=== PATIENT | female | born 1940 | race Caucasian/White ===

== ENCOUNTER 2019-07-25 02:04 | Inpatient (IN) | payer MEDICARE, BC ==
[~2019-07-25] VITALS: Ht 152.4 cm; Wt 83.1 kg
[2019-07-25] MEDS ORDERED: FURO-151 PO (02:27)
[2019-07-25] MEDS ORDERED: ASPI-1152 PO (02:27)
[2019-07-25] MEDS ORDERED: ATOR40TA PO (02:27)
[2019-07-25] MEDS ORDERED: LISI-603 PO (02:27)
[2019-07-25] MEDS ORDERED: CARV6.252 PO (02:27)
[2019-07-25] MEDS ORDERED: DIGO125T PO (02:27)
[2019-07-25] MEDS ORDERED: SPIR25TA PO (02:27)
[2019-07-25] MEDS ORDERED: LEVO50TA8 PO (02:27)
[2019-07-25] MEDS ORDERED: ENALAPRILAT DIHYDRATE 1.25 MG/1 ML VIAL IV ONE ×2 (02:30→02:35)
[2019-07-25] MEDS ORDERED: NITROGLYCERIN OINT 1 GM PACKET TP ONE ×2 (02:30→02:45)
[2019-07-25] MEDS ORDERED: FUROSEMIDE 20 MG/2 ML VIAL IVP ONE (02:30)
[2019-07-25] MEDS ORDERED: DAPA10TA PO (02:43)
[2019-07-25] MEDS ORDERED: FUROSEMIDE 40 MG/4 ML VIAL ONE ×2 (02:45→02:58)
--- NOTE | 2019-07-25 02:50 | NUR ---
Per EDMD DS pt placed on BIPAP via full face mask on settings of IPAP 15, EPAP 5, set resp. rate 20 and FIO2-80%. Pt appears to be tolerating settings well. Pt to be monitored throughout the duration of the shift. V-60 alarm parameters have been checked and remain audible.
[2019-07-25 02:55] LABS: BASOPHILS # (AUTO) 0.2 K/uL (0.0-8.0); BASOPHILS % (AUTO) 1.4 % (0.0-2.0); EOSINOPHILS # (AUTO) 1.3 K/uL (0.0-0.7); EOSINOPHILS % (AUTO) 8.6 % (0.0-7.0); HEMATOCRIT 41.6 % (31.2-41.9); HEMOGLOBIN 13.4 g/dL (10.9-14.3); LYMPHOCYTES # (AUTO) 1.5 K/uL (20.0-40.0); LYMPHOCYTES % (AUTO) 9.5 % (20.5-51.5); MEAN CORPUSCULAR HEMOGLOBIN 28.5 uug (24.7-32.8); MEAN CORPUSCULAR HGB CONC 32 g/dL (32.3-35.6); MEAN CORPUSCULAR VOLUME 88.7 fL (75.5-95.3); MONOCYTES # (AUTO) 0.6 K/uL (2.0-10.0); NEUTROPHILS # (AUTO) 11.8 K/uL (1.8-8.9); NEUTROPHILS % (AUTO) 76.5 % (38.5-71.5); PLATELET COUNT (AUTO) 230 K/uL (179-408); RED BLOOD CELL COUNT(AUTO) 4.69 MIL/uL (3.63-4.92); WHITE BLOOD COUNT (AUTO) 15.4 K/uL (3.8-11.8)
[2019-07-25] MEDS ORDERED: ALBUTEROL SULFATE 2.5 MG/3 ML NEBU NEB ONE (03:00)
[2019-07-25] MEDS ORDERED: FUROSEMIDE 40 MG/4 ML VIAL IV ONE (03:00)
[2019-07-25] MEDS ORDERED: ALBUTEROL SULFATE 2.5 MG/3 ML NEBU ONE (03:03)
[2019-07-25 03:09] LABS: CARBON DIOXIDE 26 mmol/L (21-32); CHLORIDE 106 mmol/L (98-107); CREATININE 1.6 mg/dL (0.6-1.3); GLUCOSE 294 mg/dL (74-106); POTASSIUM 4.9 mmol/L (3.5-5.1); UREA NITROGEN, BLOOD 43 mg/dL (7-18)
[2019-07-25] MEDS ORDERED: levoFLOXacin 750 MG/D5W 150 ML PIGGYBACK IV ONE (03:15)
[2019-07-25] MEDS ORDERED: levoFLOXacin 750MG/D5W 150 ML IV ONE (03:16)
[2019-07-25 03:22] LABS: ALANINE AMINOTRANSFERASE 27 U/L (14-59); ALKALINE PHOSPHATASE 83 U/L (50-136); ASPARTATE AMINOTRANSFERASE 17 U/L (15-37); BILIRUBIN,DIRECT < 0.1 mg/dL (0.0-0.2); BILIRUBIN,TOTAL 0.3 mg/dL (0.2-1.0); TOTAL PROTEIN, SERUM 7.6 g/dL (6.4-8.2)
--- NOTE | 2019-07-25 03:37 | NUR ---
Pt states she is feeling better & more comfortable. Vitals are stable. BP 130/55. HR 77 NSR. Respirations 21. O2 Saturation 98%. Pt currently on BIPAP with settings as followed: IPAP 15. EPAP 5. Rate 20. O2 80%. At this time, pt has diuresed 300cc of urine output. Will continue to monitor. Pending inpatient status. Waiting call back from [email or web address] panel.
--- NOTE | 2019-07-25 03:55 | NUR ---
Pt. admitted to [facility], under care of Dr. August. Diagnosis: Heart Failure/Congestive Heart Failure/Pulmonary Edema. Belongs List completed
--- NOTE | 2019-07-25 03:55 | NUR ---
Dr. Holman titrated FIO2 down to 60%. Pt tolerating well.
--- NOTE | 2019-07-25 04:30 | NUR ---
Admitted a 78 years old female with diagnosis of SOB. Patient AAOx4. Denies any pain at this time. IV site on left hand intact and patent. Garcia catheter intact and draining via gravity. Routine admission care done. Plan of care initiated. Safety measure initiated and call viera within reached.
[2019-07-25] MEDS ORDERED: ACETAMINOPHEN 325 MG TABLET PO PRN (04:45)
[2019-07-25] MEDS ORDERED: HYDROCODONE/APAP 5-325MG TABLET PO PRN (04:45)
[2019-07-25] MEDS ORDERED: DEXTROSE 50% 50 ML DISP.SYRIN IV PRN (04:45)
[2019-07-25] MEDS ORDERED: INSULIN REGULAR, HUMAN 300 UNITS/3 ML VIAL SQ PRN (04:45)
[2019-07-25] MEDS ORDERED: ONDANSETRON 4 MG/2 ML VIAL IV PRN (04:45)
[2019-07-25] MEDS ORDERED: MAGNESIUM HYDROXIDE 30 ML LIQUID UDC PO PRN (04:45)
[2019-07-25] MEDS ORDERED: Z GUARD REMEDY PASTE 57 GM TUBE TOP PRN (04:45)
[2019-07-25 05:26] VITALS: BP 140/62
--- NOTE | 2019-07-25 05:28 | NUR ---
RT placed patient on BIPAP. O2 sat at 96%. NSR on tele at 70/min.
--- NOTE | 2019-07-25 06:29 | NUR ---
Critical value, troponin 0.648. Informed Dr. August. Awaiting for any new order. Patient will have another Troponin level at 1040.
[2019-07-25] MEDS: BLOOD SUGAR DIAGNOSTIC 1 EACH STRIP VI SCH ×4 (06:36→21:53)
[2019-07-25] MEDS ORDERED: LEVOTHYROXINE SODIUM 50 MCG TABLET PO SCH (07:00)
--- NOTE | 2019-07-25 07:25 | NUR ---
Received pt. in bed AAOX4. on bipap 20/15 Rate of 20 and fio2 of 60%. saturation of 96% At 0745 Patient transfer to room 318 for which he was taken off bipap saturation dropping to 87-88% patient encourage to take deep breaths and after about 10min. saturation up to 92% placed on 4 liters nasal canula and titrated up to 6 liter to maintain saturation above 92%, Patient noted with dry cough and getting short of breath with exacerbation.
[2019-07-25 08:00] VITALS: BP 156/68
[2019-07-25] MEDS: ASPIRIN EC 81 MG TABLET.DR PO SCH (08:38)
[2019-07-25] MEDS ORDERED: LISINOPRIL 20 MG TABLET PO SCH (09:00)
[2019-07-25] MEDS ORDERED: CARVEDILOL 6.25 MG TABLET PO SCH (09:00)
[2019-07-25] MEDS ORDERED: CARVEDILOL 12.5 MG TABLET PO SCH ×2 (09:00→17:00)
[2019-07-25] MEDS ORDERED: DIGOXIN 125 MCG TABLET PO SCH (09:00)
--- NOTE | 2019-07-25 11:17 | NUR ---
Cardiology services, Dr. Pepper in and informed of pt's most recent trending up troponin 1.204.
[2019-07-25] MEDS: INSULIN REGULAR, HUMAN 300 UNIT/3 ML VIAL SQ PRN ×2 (11:24→16:52)
[2019-07-25 11:30] VITALS: BP 145/54
[2019-07-25] MEDS ORDERED: CLOPIDOGREL 75 MG TABLET PO ONE (13:00)
[2019-07-25 13:15] LABS: CARBON DIOXIDE 28 mmol/L (21-32); CHLORIDE 104 mmol/L (98-107); CREATININE 1.7 mg/dL (0.6-1.3); GLUCOSE 177 mg/dL (74-106); POTASSIUM 5.1 mmol/L (3.5-5.1); UREA NITROGEN, BLOOD 45 mg/dL (7-18)
[2019-07-25 13:21] LABS: ALANINE AMINOTRANSFERASE 30 U/L (14-59); ALKALINE PHOSPHATASE 82 U/L (50-136); ASPARTATE AMINOTRANSFERASE 24 U/L (15-37); BILIRUBIN,TOTAL 0.5 mg/dL (0.2-1.0)
[2019-07-25] MEDS: ENOXAPARIN SODIUM 80 MG/0.8 ML DISP.SYRIN SQ SCH (13:43)
--- NOTE | 2019-07-25 14:23 | NUR ---
SCD's ordered and pump requested from central awaiting delivery.
--- NOTE | 2019-07-25 15:23 | NUR ---
SCD's delivery but patient refusing therapy at this time stating "I'll do it tonight at bedtime".
[2019-07-25 16:15] LABS: *BILIRUBIN,URIN NEGATIVE (NEGATIVE); *BLOOD, URINE 3+ (NEGATIVE); *CLARITY,URINE CLEAR (CLEAR); *COLOR,URINE YELLOW (YELLOW); *KETONES,URINE NEGATIVE (NEGATIVE); *UROBILINOGEN,URINE 0.2 E.U./dl (NORMAL); LEUKOCYTE ESTERASE ,URINE NEGATIVE (NEGATIVE); NITRITE, URINE NEGATIVE (NEGATIVE)
[2019-07-25 16:25] LABS: UGLUCOSE 3+ (NEGATIVE)
[2019-07-25 16:49] LABS: *CREATININE,URINE 38.4 mg/dL (30-125); *URINE TOTAL PROTEIN RANDOM 27.5 mg/dL (<150/24HR)
[2019-07-25 16:57] LABS: BACTERIA,URINE FEW /HPF (NONE SEEN); RBC,URINE 50-80 /HPF (0-3); SQUAMOUS EPITHELIAL CELL,UR FEW /HPF (NONE SEEN)
[2019-07-25 17:00] VITALS: BP 148/42
[2019-07-25] MEDS ORDERED: CARVEDILOL 25 MG TABLET PO SCH (17:00)
--- NOTE | 2019-07-25 19:35 | NUR ---
PATIENT ALERT ORIENTED, NO SOB NO CHEST PAIN. PATIENT ON TELE MONITOR SINUS RHYTHM. PATIENT REMAINS ON DROPLET PRECAUTIONS. PATIENT HAS NO COMPLAIN OF PAIN AT THIS TIME. CALL LIGHT WITHIN REACH.
[2019-07-25 20:07] VITALS: BP 140/64
[2019-07-25] MEDS ORDERED: ATORVASTATIN 40 MG TABLET PO SCH ×2 (21:00)
[2019-07-26] VITALS: BP 130/72
[2019-07-26 04:05] VITALS: BP 144/42
--- NOTE | 2019-07-26 04:49 | NUR ---
PATIENT HAS EPISODE OF V TACH 8 BEATS, CHECK BP 144/42, HR 74, OXYGEN SAT 94% AT 2LPM. PATIENT HAS NO SOB NO CHEST, ALERT ORIENTED, PATIENT SAID SHE WENT TO BATHROOM PROBABLY THE CAUSE OF VTACH EPISODES, NO FURTHER EPISODE NOTED. CONT TO MONITOR.
[2019-07-26] MEDS: BLOOD SUGAR DIAGNOSTIC 1 EACH STRIP VI SCH ×3 (06:28→17:08)
--- NOTE | 2019-07-26 06:36 | NUR ---
PATIENT LEFT ARM IV INFILTRATED, REINSERTED NEW ONE LEFT FOREARM TOLERATE WELL. PATIENT ALERT ORIENTED, DENIES PAIN AT THIS TIME, KEPT LEFT ARM ELEVATED WITH PILLOW, TELE MONITOR SINUS RYTHM, CONT TO MONITOR.
--- NOTE | 2019-07-26 07:00 | NUR ---
ATTEMPTED ABG x2. AFTER SECOND FAILED ATTEMPT, PT REFUSED ABG. RN AWARE.
--- NOTE | 2019-07-26 08:00 | NUR ---
Received pt in bed AOx4, on O2 @ 2L, no SOB or distress noted at this time. On telemetry, IV on left wrist 22g flushed and patent. Garcia catheter in place draining tea colored urine. Able to ambulate around room. Bed locked in lowest position with siderails 2x up. Call light and phone within reach. Will monitor
[2019-07-26] MEDS ORDERED: FUROSEMIDE 40 MG/4 ML VIAL IV SCH (09:00)
[2019-07-26] MEDS ORDERED: CARVEDILOL 25 MG TABLET PO SCH (09:00)
[2019-07-26] MEDS ORDERED: CLOPIDOGREL 75 MG TABLET PO SCH (09:00)
[2019-07-26] MEDS ORDERED: LEVOTHYROXINE SODIUM 50 MCG TABLET PO SCH ×2 (09:00)
[2019-07-26] MEDS: ASPIRIN EC 81 MG TABLET.DR PO SCH (09:33)
[2019-07-26] MEDS: ENOXAPARIN SODIUM 80 MG/0.8 ML DISP.SYRIN SQ SCH (09:38)
[2019-07-26] MEDS: INSULIN REGULAR, HUMAN 300 UNIT/3 ML VIAL SQ PRN ×2 (10:31→12:00)
[2019-07-26 11:30] VITALS: BP 145/44
[2019-07-26 16:00] VITALS: BP 163/51
[2019-07-26] MEDS ORDERED: CARV25TA2 PO (16:30)
[2019-07-26] MEDS ORDERED: LEVO500T2 PO (16:30)
[2019-07-26] MEDS ORDERED: CLOP75TA33 PO (16:30)
--- NOTE | 2019-07-26 18:12 | NUR ---
Pt left unit via wheelchair accompanied by Jeff LOPEZ. AOx4, on RA with no SOB or distress noted. Patient very eager to go home. DC forms and instructions signed and given to patient. Belongings list signed, all accounted for. Garcia catheter was removed, pt was able to void with no difficulty or burning. IV on left wrist and ID band removed. Pt verbalized understanding of DC educations.
== END 2019-07-26 18:00 | disposition home or self-care (01) | DRG 280 ==
LOC: ER 02:07 → TELE-TD3 04:10 → TELE3 17:40
PROVIDERS: ADMIT Nurse Practitioner Acute Care; ATTEND Internal Medicine
PROC: 5A09357 Assistance with Respiratory Ventilation, Less than 24 Consecutive Hours, Continuous Positive Airway Pressure (ICD-10-PCS; principal; 2019-07-25)
DX: I13.0 Hypertensive heart and chronic kidney disease with heart failure and stage 1 through stage 4 chronic kidney disease, or unspecified chronic kidney disease (principal); N17.0 Acute kidney failure with tubular necrosis; I21.A1 Myocardial infarction type 2; I50.43 Acute on chronic combined systolic (congestive) and diastolic (congestive) heart failure; J96.01 Acute respiratory failure with hypoxia; D68.69 Other thrombophilia; I16.9 Hypertensive crisis, unspecified; I25.5 Ischemic cardiomyopathy; E87.5 Hyperkalemia; E66.9 Obesity, unspecified; E03.9 Hypothyroidism, unspecified; I48.0 Paroxysmal atrial fibrillation; N18.2 Chronic kidney disease, stage 2 (mild); I25.10 Atherosclerotic heart disease of native coronary artery without angina pectoris; E78.5 Hyperlipidemia, unspecified; Z87.891 Personal history of nicotine dependence; Z88.0 Allergy status to penicillin; Z68.35 Body mass index [BMI] 35.0-35.9, adult; R73.03 Prediabetes
CPT/HCPCS: 36415; 51702; 70030-TC; 71045; 83735; 84156; 84300; 85025; 85730; 86140; 87086; 93005; 93307; 94660; A4663; G0378; J1650; J1815; J1940; J1956; J3490; U0003-CS

== ENCOUNTER 2020-07-29 23:00 | Emergency (ER) | payer MEDICARE, BC ==
[~2020-07-29] VITALS: Ht 152.4 cm; Wt 77.1 kg
[2020-07-29 00:04] VITALS: BP 151/82
[~2020-07-29 23:00] MED LIST: ASPI-1420 PO; ATOR40TA PO; CARV25TA2 PO; CLOP75TA33 PO; DAPA10TA PO; DIGO125T PO; FURO-151 PO; LEVO500T2 PO; LEVO50TA8 PO; LISI20TA30 PO; SPIR25TA PO
--- NOTE | 2020-07-29 23:30 | NUR ---
Patient in room 4a A/Ox3. Patient denies CP,SOB, head trauma from fall. Patient states she fell while reaching for something in her room and lost her balance and fell. Denies LOC. No distress noted.
[2020-07-29 23:42] LABS: HEMATOCRIT 30.8 % (31.2-41.9); MEAN CORPUSCULAR HEMOGLOBIN 28.9 uug (24.7-32.8); MEAN CORPUSCULAR VOLUME 91.8 fL (75.5-95.3); PLATELET COUNT (AUTO) 275 K/uL (179-408)
[2020-07-29 23:43] LABS: CARBON DIOXIDE 24 mmol/L (21-32); CHLORIDE 105 mmol/L (98-107); CREATININE 1.9 mg/dL (0.6-1.3); GLUCOSE 201 mg/dL (74-106); UREA NITROGEN, BLOOD 38 mg/dL (7-18)
[2020-07-29] MEDS ORDERED: NITROGLYCERIN 0.4 MG/TAB BOTTLE SL ONE (23:45)
[2020-07-29] MEDS ORDERED: ASPIRIN 81 MG TAB.CHEW PO ONE (23:45)
[2020-07-29] MEDS ORDERED: NITROGLYCERIN OINT 1 GM PACKET TP ONE (23:45)
[2020-07-29 23:55] LABS: ALANINE AMINOTRANSFERASE 35 U/L (14-59); ALKALINE PHOSPHATASE 92 U/L (50-136); ASPARTATE AMINOTRANSFERASE 22 U/L (15-37); BILIRUBIN,DIRECT 0.2 mg/dL (0.0-0.2); BILIRUBIN,TOTAL 0.5 mg/dL (0.2-1.0); TOTAL PROTEIN, SERUM 6.7 g/dL (6.4-8.2)
--- NOTE | 2020-07-29 23:59 | NUR ---
Dr Holman speak Dr Pepper for cardiology consult.
[2020-07-30] MEDS ORDERED: NITROGLYCERIN OINT 1 GM PACKET TP ONE (00:07)
[2020-07-30] MEDS ORDERED: ENOXAPARIN SODIUM 80 MG/0.8 ML DISP.SYRIN SQ ONE ×2 (00:07)
[2020-07-30] MEDS ORDERED: NITROGLYCERIN 0.4 MG/TAB BOTTLE SL ONE (00:07)
[2020-07-30] MEDS ORDERED: ASPIRIN 81 MG TAB.CHEW ONE (00:07)
--- NOTE | 2020-07-30 00:10 | NUR ---
DR Holman spoke with DR Carlin who want and will accept patient at [facility].
[2020-07-30] MEDS ORDERED: levoFLOXacin 500 MG/D5W 100ML PIGGYBACK IV ONE (00:15)
[2020-07-30] MEDS ORDERED: ACETAMINOPHEN ES 500 MG TABLET PO ONE (00:15)
--- NOTE | 2020-07-30 00:30 | NUR ---
Called [facility], spoke to Mandy nursing supervisor mixing for possible transfer to [facility] who Dr Carlin is accepting .
--- NOTE | 2020-07-30 00:31 | NUR ---
Mandy Nursing Rubberizing Mechanic requesting to fax facesheet .
--- NOTE | 2020-07-30 00:58 | NUR ---
Mandy Nursing Form Grader called back with transfer info. Patient will be going to [facility] room 105 Tele floor. Accepting MD is Dr Carlin. Call for report is .
--- NOTE | 2020-07-30 01:07 | NUR ---
Called [facility] no ALS ambulance unit until later on the evening.
--- NOTE | 2020-07-30 01:10 | NUR ---
Called [facility] ambulance no ALS unit available at this time.
--- NOTE | 2020-07-30 01:18 | NUR ---
Called [facility] ambulance. No ALS transpotation available at this time.
--- NOTE | 2020-07-30 01:19 | NUR ---
Called [facility] no ALS unit available until noon time today.
[2020-07-30 01:21] LABS: *BILIRUBIN,URIN NEGATIVE (NEGATIVE); *COLOR,URINE YELLOW (YELLOW); *KETONES,URINE NEGATIVE (NEGATIVE); *UROBILINOGEN,URINE 0.2 E.U./dl (NORMAL); LEUKOCYTE ESTERASE ,URINE NEGATIVE (NEGATIVE); NITRITE, URINE NEGATIVE (NEGATIVE); UGLUCOSE 3+ (NEGATIVE)
--- NOTE | 2020-07-30 01:22 | NUR ---
Called [facility] no units available until afternoon.
--- NOTE | 2020-07-30 01:26 | NUR ---
Called [facility] who unable to transport patient due to not having capbility.
--- NOTE | 2020-07-30 01:28 | NUR ---
Called [facility] who has no unit availble unitl after 0700. And was instructed to call after 0700 to see if any available units.
[2020-07-30 01:29] LABS: *BLOOD, URINE TRACE (NEGATIVE); *CLARITY,URINE HAZY (CLEAR); BACTERIA,URINE FEW /HPF (NONE SEEN); RBC,URINE 0-3 /HPF (0-3); SQUAMOUS EPITHELIAL CELL,UR MANY /HPF (NONE SEEN); WBC,URINE 0-3 /HPF (0-3)
--- NOTE | 2020-07-30 01:52 | NUR ---
Called [facility] ambulance who has no ALS unit available.
--- NOTE | 2020-07-30 01:57 | NUR ---
Called [facility] who has no ALS units.
--- NOTE | 2020-07-30 02:16 | NUR ---
Mandy Nursing Dialysis Biomed Technician called back. She was able to get [facility] ETA of 0630.
[2020-07-30] MEDS ORDERED: ACETAMINOPHEN ES 500 MG TABLET ONE (02:52)
[2020-07-30] MEDS ORDERED: levoFLOXacin 500 MG/D5W 100 ML ONE (02:53)
[2020-07-30] MEDS ORDERED: ONDANSETRON 4 MG/2 ML VIAL IV ONE ×2 (03:30→05:00)
[2020-07-30] MEDS ORDERED: ONDANSETRON 4 MG/2 ML VIAL ONE ×2 (03:31→05:00)
[2020-07-30] MEDS ORDERED: LORAZEPAM 2 MG/1 ML VIAL IV ONE (04:15)
--- NOTE | 2020-07-30 04:40 | NUR ---
Gave SBAR report to [facility] ambulance unit [id number].
--- NOTE | 2020-07-30 05:38 | NUR ---
Gave SBAR to Vivek DAVIDSON from [facility].
[2020-07-30] MEDS ORDERED: METOCLOPRAMIDE HCL 10 MG/2 ML VIAL ONE (05:43)
[2020-07-30] MEDS ORDERED: METOCLOPRAMIDE HCL 10 MG/2 ML VIAL IV ONE (05:45)
== END 2020-07-30 05:53 | disposition short-term general hospital (02) ==
LOC: ER 23:08
DX: I21.9 Acute myocardial infarction, unspecified (principal); R53.1 Weakness; R91.8 Other nonspecific abnormal finding of lung field; Z20.822 Contact with and (suspected) exposure to COVID-19; E03.9 Hypothyroidism, unspecified; Z86.73 Personal history of transient ischemic attack (TIA), and cerebral infarction without residual deficits; Z85.3 Personal history of malignant neoplasm of breast; Z90.11 Acquired absence of right breast and nipple; Z88.0 Allergy status to penicillin; R73.03 Prediabetes; Z79.899 Other long term (current) drug therapy; I50.9 Heart failure, unspecified
CPT/HCPCS: 36415 ×2; 71045; 80048; 80076; 81001; 83880; 84145; 84484 ×2; 85025; 85379; 85730; 87040 ×2; 87086; 87400; 87426; 93005 ×2; 96365; 96372; 96375; 96376; 99291; J1650; J1956; J2405 ×2; J2765; 70030-TC; A4663; A9150

== ENCOUNTER 2020-08-31 16:34 | Inpatient (IN) | payer MEDICARE, BC ==
[~2020-08-31] VITALS: Ht 152.4 cm; Wt 81.4 kg
[2020-08-31] MEDS ORDERED: FURO40TA5 PO ×2 (20:28)
[2020-08-31] MEDS ORDERED: ATOR80TA PO (20:28)
[2020-08-31] MEDS ORDERED: PANT40TA49 PO (20:28)
[2020-08-31] MEDS ORDERED: EZET10TA15 PO (20:28)
[2020-08-31] MEDS ORDERED: DOCU100C36 PO (20:28)
[2020-08-31] MEDS ORDERED: MIDO2.5T PO (20:28)
[2020-08-31] MEDS ORDERED: AMIO200T7 PO (20:28)
[2020-08-31] MEDS ORDERED: METO-356 PO (20:28)
[2020-08-31] MEDS ORDERED: POLY17PO4 PO (20:28)
[2020-08-31] MEDS ORDERED: LORA10TA7 PO (20:28)
[2020-08-31] MEDS ORDERED: Medication Not On Formulary EA (Atorvastatin Calcium (Lipitor) 80 MG) PO SCH (21:00)
[2020-08-31] MEDS: ATORVASTATIN 40 MG TABLET PO SCH (21:21)
[2020-08-31] MEDS: FUROSEMIDE 40 MG TABLET PO SCH (21:21)
[2020-08-31] MEDS: OXYCODONE/APAP 5-325 MG TABLET PO PRN (21:49)
[2020-08-31 22:00] VITALS: BP 132/50
--- NOTE | 2020-08-31 22:15 | NUR ---
Received patient awake on bed with no respiratory distress noted. On continuous O2 at 2 lpm via NC, saturating at 95%. Patient was admitted during dayshift with dx of acute respiratory failure, PNA, and CVA. Dr Soler and Dr. Moore informed of admission. Medication reconciliation done with order to continue all meds by Dr. Moore. Pertinent assessment done, wound pictures taken, MRSA swab and belonging's inventory done. Patient complaint of bilateral knee pain 11/18, Dr. Soler ordered Percocet 5/235 q6h PRN. Oriented patient to facility, call light placed within reach. Kept clean, dry, and comfortable at all times. All needs attended. Frequent visual checks done. Will continue to monitor.
[2020-09-01] MEDS: LEVOTHYROXINE SODIUM 50 MCG TABLET PO SCH (06:01)
[2020-09-01] MEDS: PANTOPRAZOLE SODIUM 40 MG TABLET.DR PO SCH (06:01)
[2020-09-01] MEDS: Z GUARD REMEDY PASTE 57 GM TUBE TOP PRN (06:28)
--- NOTE | 2020-09-01 06:43 | NUR ---
Patient slept throughout the night. Medicated pain x1 d/t knee pain, noted effective and tolerated well. Assisted in turning and repositioning. Kept clean, dry, and comfortable. Call light placed within reach. Frequent visual checks done. Endorsed for continuity of care.
[2020-09-01 09:00] VITALS: BP 126/46
[2020-09-01] MEDS ORDERED: Dapagliflozin Propanediol (Farxiga) 10 MG) PO SCH (09:00)
[2020-09-01] MEDS: DOCUSATE SODIUM 100 MG CAPSULE PO SCH (09:12)
[2020-09-01] MEDS: ASPIRIN EC 81 MG TABLET.DR PO SCH (09:13)
[2020-09-01] MEDS: AMIODARONE HCL 200 MG TABLET PO SCH (09:13)
[2020-09-01] MEDS: LORATADINE 10 MG TABLET PO SCH (09:13)
[2020-09-01] MEDS: EZETIMIBE 10 MG TABLET PO SCH (09:14)
[2020-09-01] MEDS: MIRALAX 17 GM POWD.PACK PO SCH (09:15)
[2020-09-01] MEDS: FUROSEMIDE 40 MG TABLET PO SCH ×2 (09:15→17:44)
[2020-09-01] MEDS: METOPROLOL SUCCINATE XL 25 MG TAB.SR.24H PO SCH (09:22)
[2020-09-01] MEDS: OXYCODONE/APAP 5-325 MG TABLET PO PRN ×2 (09:37→18:06)
[2020-09-01] MEDS: MIDODRINE HCL 2.5 MG TABLET PO SCH ×2 (10:12→17:45)
--- NOTE | 2020-09-01 19:43 | NUR ---
Received an order from Dr. Moore for triamcinolone cream 0.1% BID PRN topically for itching.
[2020-09-01] MEDS ORDERED: TRIAMCINOLONE ACET 0.1% CREAM 15 GM TUBE TOP PRN (19:45)
--- NOTE | 2020-09-01 19:45 | NUR ---
Received Pt sitting up in bed, breathing even and unlabored on room air, no respiratory distress noted. A+Ox4, able to verbalize her needs. Denies pain or discomfort at this time. Bed in lowest and locked position, side rails up x2. Pt educated to use call light when assistance is needed. Call light placed within reach. VS stable, will continue to monitor.
[2020-09-01 20:00] VITALS: BP 126/47
[2020-09-01 20:17] VITALS: BP 116/49
[2020-09-01] MEDS: ATORVASTATIN 40 MG TABLET PO SCH (21:16)
[2020-09-02] MEDS: OXYCODONE/APAP 5-325 MG TABLET PO PRN ×2 (01:12→17:37)
[2020-09-02] MEDS ORDERED: TRIAMCINOLONE ACET 0.1% CREAM 15 GM TUBE TOP PRN (06:00)
[2020-09-02] MEDS: PANTOPRAZOLE SODIUM 40 MG TABLET.DR PO SCH (06:16)
[2020-09-02 06:17] VITALS: BP 121/55
[2020-09-02] MEDS: LEVOTHYROXINE SODIUM 50 MCG TABLET PO SCH (06:17)
[2020-09-02] MEDS: Z GUARD REMEDY PASTE 57 GM TUBE TOP PRN (07:05)
--- NOTE | 2020-09-02 07:10 | NUR ---
NURSE REPORT Report obtained from night nurse Felicia and this nurse assumed care of patient. Received patient asleep at the beginning of day shift. No distress or discomfort noted. Marisol Lanier
[2020-09-02 07:34] LABS: HEMATOCRIT 30.7 % (31.2-41.9); MEAN CORPUSCULAR HEMOGLOBIN 29.2 uug (24.7-32.8); MEAN CORPUSCULAR VOLUME 92.2 fL (75.5-95.3); PLATELET COUNT (AUTO) 243 K/uL (179-408)
[2020-09-02 08:12] LABS: ALANINE AMINOTRANSFERASE 32 U/L (14-59); CHLORIDE 106 mmol/L (98-107); CREATININE 1.4 mg/dL (0.6-1.3); GLUCOSE 89 mg/dL (74-106); POTASSIUM 3.8 mmol/L (3.5-5.1); UREA NITROGEN, BLOOD 28 mg/dL (7-18)
[2020-09-02 08:24] LABS: ALKALINE PHOSPHATASE 377 U/L (50-136); ASPARTATE AMINOTRANSFERASE 63 U/L (15-37); CARBON DIOXIDE 29 mmol/L (21-32); PHOSPHOROUS 2.9 mg/dL (2.5-4.9); TOTAL PROTEIN, SERUM 5.7 g/dL (6.4-8.2)
[2020-09-02 08:30] VITALS: BP 124/37
[2020-09-02 08:30] LABS: MAGNESIUM 1.9 mg/dL (1.8-2.4)
[2020-09-02] MEDS: [UNRECOGNIZED DRUG - OTHER] PO SCH (08:57)
[2020-09-02] MEDS: METOPROLOL SUCCINATE XL 25 MG TAB.SR.24H PO SCH (08:57)
[2020-09-02] MEDS: FARXIGA 10 MG PO SCH (08:57)
[2020-09-02] MEDS: MIDODRINE HCL 2.5 MG TABLET PO SCH ×2 (08:57→19:31)
[2020-09-02] MEDS: LORATADINE 10 MG TABLET PO SCH (08:57)
[2020-09-02] MEDS: EZETIMIBE 10 MG TABLET PO SCH (08:59)
[2020-09-02] MEDS: FUROSEMIDE 40 MG TABLET PO SCH ×2 (08:59→17:33)
[2020-09-02] MEDS: DOCUSATE SODIUM 100 MG CAPSULE PO SCH (08:59)
[2020-09-02] MEDS: MIRALAX 17 GM POWD.PACK PO SCH ×2 (09:00→09:57)
--- NOTE | 2020-09-02 09:00 | NUR ---
NURSE CARE VSS. Afeb. Took meds as ordered. Breakfast taken poor, since no butter for pancake. Patient don't like the coffee much, even if sweet and low and cream placed in coffee. No BM, and given Miralax.
[2020-09-02] MEDS: AMIODARONE HCL 200 MG TABLET PO SCH (09:03)
[2020-09-02] MEDS: ASPIRIN EC 81 MG TABLET.DR PO SCH (09:04)
[2020-09-02 14:00] VITALS: BP 125/44
--- NOTE | 2020-09-02 14:00 | NUR ---
NURSE CARE VSS. AFEB. INCONTINENT OF URINE. CLEANSED AND ANOTHER DIAPER AND PAD APPLIED. SONS CAME IN TO VISIT PATIENT. PATIENT LIKES TO DRINK DIET COKE AND EVEN IF PATIENT HAS DIET COKE, SO WENT TO [employer] TO BUY DIET COKE FOR PATIENT.
--- NOTE | 2020-09-02 15:00 | NUR ---
PHYSICAL THERAPY Patient was assisted OOB, by 2 PTs and he went to the gym for PT. Afterwards PT brought patient to 3rd floor Tele- via wheelchair to room 323A. Was supposed to go to Room 329B or be roommate of another patient, but that patient didn't want a roommate. Stated the adm told her she would always have a single room. That she is supposed to have visitors see her today. Marisol Lanier RN
[2020-09-02 16:15] VITALS: BP 124/52
--- NOTE | 2020-09-02 19:20 | NUR ---
NURSE REPORT AND ENDORSEMENT Report given to night nurse Araceli to assume care of patient. VSS. Afeb. c/o pain or discomfort and medicated with Percocet 1 tab at 1737 with relief. Son at the bedside and he went back to the patient old room and able to fine the patient blue beanie and the TV guide. Patient asking for more pain med. MD need to order possible steroid injection for the the pain in her legs.
[2020-09-02] MEDS: ATORVASTATIN 40 MG TABLET PO SCH (20:26)
[2020-09-02 20:36] VITALS: BP 110/46
--- NOTE | 2020-09-02 21:33 | NUR ---
Received patient awake on bed with son at bedside. On continuous O2 via NC at 2lpm, no respiratory distress noted. Assisted in turning and repositioning. Due medication given on time and tolerated well. Kept clean, dry, and comfortable. Call light placed within reach. Frequent visual checks done. Will continue to monitor.
[2020-09-03] MEDS: OXYCODONE/APAP 5-325 MG TABLET PO PRN ×3 (00:18→21:36)
[2020-09-03 04:42] VITALS: BP 130/54
[2020-09-03] MEDS: PANTOPRAZOLE SODIUM 40 MG TABLET.DR PO SCH (06:20)
[2020-09-03] MEDS: LEVOTHYROXINE SODIUM 50 MCG TABLET PO SCH (06:20)
--- NOTE | 2020-09-03 06:35 | NUR ---
Patient slept throughout the night. Medicated pain x1 d/t knee pain, noted effective and tolerated well. Assisted in turning and repositioning. Kenalog cream PRN applied on legs d/t itching. Kept clean, dry, and comfortable. Due medications given on time and tolerated well. Call light placed within reach. Frequent visual checks done. Endorsed for continuity of care.
[2020-09-03] MEDS ORDERED: MIRALAX 17 GM POWD.PACK PO PRN (07:45)
[2020-09-03] MEDS: DOCUSATE SODIUM 100 MG CAPSULE PO SCH (08:11)
[2020-09-03] MEDS: ASPIRIN EC 81 MG TABLET.DR PO SCH (08:12)
[2020-09-03] MEDS: EZETIMIBE 10 MG TABLET PO SCH (08:12)
[2020-09-03] MEDS: LORATADINE 10 MG TABLET PO SCH (08:13)
[2020-09-03] MEDS: AMIODARONE HCL 200 MG TABLET PO SCH (08:13)
[2020-09-03] MEDS: [UNRECOGNIZED DRUG - OTHER] PO SCH (08:13)
[2020-09-03] MEDS: FARXIGA 10 MG PO SCH (08:13)
[2020-09-03] MEDS: FUROSEMIDE 40 MG TABLET PO SCH (08:14)
[2020-09-03 08:15] VITALS: BP 111/67
[2020-09-03] MEDS: MIDODRINE HCL 2.5 MG TABLET PO SCH ×2 (08:16→17:10)
[2020-09-03] MEDS: METOPROLOL SUCCINATE XL 25 MG TAB.SR.24H PO SCH (09:00)
[2020-09-03] MEDS: CLOTRIMAZOLE 1% CREAM 30 GM TUBE TOP SCH ×2 (09:39→17:11)
[2020-09-03] MEDS: MIRALAX 17 GM POWD.PACK PO SCH (09:39)
--- NOTE | 2020-09-03 10:37 | NUR ---
GREG NOTE: SW met with patient. Patient presents alert and oriented x4 and is able to express her needs. Patient presents with depressed mood and flat affect. Patient has poor eye contact and speech is low and slow. Patient lives at home with her son. Patient states prior to her hospitalization she was completely independently taking care of herself. Patient states her son, Herb Gusman is very supportive and will be taking care of her after her hospitalization. Patient states she is feeling very depressed however denies suicidal ideation. Patient requested to see a psychiatrist. GREG informed LETY Dnucan who confirmed she will request a psych consult. Patient is agreeable with this. merchandise worker will continue to remain available to patient and provide ongoing supportive counseling and assess for any psychosocial needs. merchandise worker will encourage patient to comply with ARU goals of care.
--- NOTE | 2020-09-03 11:29 | NUR ---
INDIVIDUALIZED PLAN OF CARE
--- NOTE | 2020-09-03 11:48 | NUR ---
The patient is alert/oriented x4. Able to make needs known. Dr. Smith aware of psych consult due to patient verbalized feeling depressed. Call light within reach and frequent safety checks done. Will continue to monitor.
--- NOTE | 2020-09-03 12:21 | NUR ---
WOUND CARE CONSULT: PT PRESENTS WITH SKIN DISCOLORATIONS, RASH/SKIN CONDITION TO RT LOWER LEG AND FUNGAL RASH TO BREASTFOLDS, ABDOMINAL/GROIN FOLDS, PERINEUM AND BUTTOCKS, PRESENT ON ADMISSION. RECOMMENDATIONS MADE FOR SKIN PROTECTION. DISCUSSED WITH NURSING STAFF. IN AGREEMENT WITH PLAN OF CARE. Addendum: 09/03/20 at 1222 by TY WHITMORE RN Amended: Links added.
[2020-09-03 14:56] VITALS: BP 116/49
--- NOTE | 2020-09-03 18:40 | NUR ---
Received patient sitting on her bed, a/ox4 with periods of forgetfulness. Noted with weakness. Seen by hub inventory specialist. Kept on comfortable position. Call light within reach. All due meds and needs attended. Will continue to monitor. Endorsed to the next shift.
[2020-09-03] MEDS ORDERED: TRAZODONE 50 MG TABLET PO SCH (21:00)
[2020-09-03] MEDS: BISACODYL 10 MG SUPP.RECT RC PRN (21:36)
[2020-09-03] MEDS: ATORVASTATIN 40 MG TABLET PO SCH (21:36)
[2020-09-03 22:27] VITALS: BP 121/46
[2020-09-04] MEDS: ACETAMINOPHEN 325 MG TABLET PO PRN ×2 (01:51→08:35)
[2020-09-04 04:00] VITALS: BP 118/48
[2020-09-04] MEDS: PANTOPRAZOLE SODIUM 40 MG TABLET.DR PO SCH (06:17)
[2020-09-04] MEDS: LEVOTHYROXINE SODIUM 50 MCG TABLET PO SCH (06:17)
[2020-09-04 07:39] VITALS: BP 111/40
[2020-09-04] MEDS ORDERED: MAGNESIUM CITRATE 296 ML BOTTLE PO ONE (08:00)
[2020-09-04] MEDS: AMIODARONE HCL 200 MG TABLET PO SCH (08:27)
[2020-09-04] MEDS: EZETIMIBE 10 MG TABLET PO SCH (08:27)
[2020-09-04] MEDS: ASPIRIN EC 81 MG TABLET.DR PO SCH (08:27)
[2020-09-04] MEDS: FUROSEMIDE 40 MG TABLET PO SCH (08:27)
[2020-09-04] MEDS: LORATADINE 10 MG TABLET PO SCH (08:28)
[2020-09-04] MEDS: DOCUSATE SODIUM 100 MG CAPSULE PO SCH (08:28)
[2020-09-04] MEDS: GLUCERNA SHAKE VANILLA 237 ML CAN PO SCH (08:28)
[2020-09-04] MEDS: CLOTRIMAZOLE 1% CREAM 30 GM TUBE TOP SCH ×2 (08:29→18:04)
[2020-09-04] MEDS: MIRALAX 17 GM POWD.PACK PO SCH (08:29)
[2020-09-04] MEDS: MIDODRINE HCL 2.5 MG TABLET PO SCH ×2 (08:34→18:04)
[2020-09-04] MEDS: [UNRECOGNIZED DRUG - OTHER] PO SCH (08:34)
[2020-09-04] MEDS: FARXIGA 10 MG PO SCH (08:34)
[2020-09-04] MEDS: METOPROLOL SUCCINATE XL 25 MG TAB.SR.24H PO SCH ×2 (10:25→18:09)
[2020-09-04 15:13] VITALS: BP 109/63
[2020-09-04] MEDS: ONDANSETRON 4 MG/2 ML VIAL IV PRN (18:50)
[2020-09-04 20:35] VITALS: BP 106/47
[2020-09-04] MEDS: ATORVASTATIN 40 MG TABLET PO SCH (20:58)
[2020-09-04] MEDS: OXYCODONE/APAP 5-325 MG TABLET PO PRN (20:58)
[2020-09-04] MEDS: TRAZODONE 100 MG TABLET PO SCH (20:58)
--- NOTE | 2020-09-05 00:13 | NUR ---
Received patient AXo X4,. able to make needs known. son at bedside. VSS, no acute distress noted. C/o of pain in knees administered Percocet PRN. On continuous O2 via NC at 2lpm, no respiratory distress noted. Assisted in turning and repositioning. had episode of BM, cleaned and kept comfortable. Due medication given on time and tolerated well. Needs attended to. Safety measures maintained. Call light placed within reach. Frequent visual checks done. Will continue to monitor.
[2020-09-05] MEDS: ZOLPIDEM 5 MG TABLET PO PRN (00:30)
[2020-09-05 04:29] VITALS: BP 91/32
[2020-09-05] MEDS: LEVOTHYROXINE SODIUM 50 MCG TABLET PO SCH (06:09)
[2020-09-05] MEDS: PANTOPRAZOLE SODIUM 40 MG TABLET.DR PO SCH (06:09)
[2020-09-05 08:00] VITALS: BP 100/43
[2020-09-05] MEDS: EZETIMIBE 10 MG TABLET PO SCH (08:17)
[2020-09-05] MEDS: FUROSEMIDE 40 MG TABLET PO SCH (08:17)
[2020-09-05] MEDS: AMIODARONE HCL 200 MG TABLET PO SCH (08:19)
[2020-09-05] MEDS: ASPIRIN EC 81 MG TABLET.DR PO SCH (08:20)
[2020-09-05] MEDS: LORATADINE 10 MG TABLET PO SCH (08:20)
[2020-09-05] MEDS: MIDODRINE HCL 2.5 MG TABLET PO SCH ×2 (08:20→16:51)
[2020-09-05] MEDS: FARXIGA 10 MG PO SCH (08:21)
[2020-09-05] MEDS: GLUCERNA SHAKE VANILLA 237 ML CAN PO SCH (08:21)
[2020-09-05] MEDS: [UNRECOGNIZED DRUG - OTHER] PO SCH (08:21)
[2020-09-05] MEDS: CLOTRIMAZOLE 1% CREAM 30 GM TUBE TOP SCH ×2 (08:22→16:51)
[2020-09-05] MEDS: ACETAMINOPHEN 325 MG TABLET PO PRN (08:23)
[2020-09-05] MEDS: ONDANSETRON 4 MG/2 ML VIAL IV PRN ×2 (08:31→23:07)
[2020-09-05] MEDS: MIRALAX 17 GM POWD.PACK PO SCH (08:36)
[2020-09-05] MEDS: DOCUSATE SODIUM 100 MG CAPSULE PO SCH (08:37)
[2020-09-05] MEDS: METOPROLOL SUCCINATE XL 25 MG TAB.SR.24H PO SCH (10:45)
--- NOTE | 2020-09-05 11:40 | NUR ---
INTERDISCIPLINARY TEAM CONFERENCE
[2020-09-05 16:08] VITALS: BP_SYST 109; BP_SYST 113; BP_DIAS 50; BP_DIAS 76
[2020-09-05 20:16] VITALS: BP 109/50
[2020-09-05] MEDS: TRAZODONE 100 MG TABLET PO SCH (20:35)
[2020-09-05] MEDS: ATORVASTATIN 40 MG TABLET PO SCH (20:35)
--- NOTE | 2020-09-05 21:31 | NUR ---
Received patient awake on bed with no respiratory distress noted. Saline lock on L hand remains patent and intact. Denies pain and discomfort at this time. Assisted in turning and repositioning. Due medication given on time and tolerated well. Kept clean, dry, and comfortable. Call light placed within reach. Frequent visual checks done. Will continue to monitor.
[2020-09-05] MEDS: OXYCODONE/APAP 5-325 MG TABLET PO PRN (23:03)
[2020-09-06 04:25] VITALS: BP 123/45
[2020-09-06] MEDS: PANTOPRAZOLE SODIUM 40 MG TABLET.DR PO SCH (06:00)
[2020-09-06] MEDS: LEVOTHYROXINE SODIUM 50 MCG TABLET PO SCH (06:00)
--- NOTE | 2020-09-06 06:01 | NUR ---
Patient slept intermittently throughout the night. Medicated pain x1 d/t knee pain, noted effective and tolerated well. Zofran IV given PRN d/t to complaint of nausea. Assisted in turning and repositioning. All due meds given on time and tolerated well. Kept clean, dry, and comfortable. Call light placed within reach. Frequent visual checks done. Will endorse for continuity of care.
[2020-09-06 07:57] VITALS: BP 105/45
[2020-09-06] MEDS: GLUCERNA SHAKE VANILLA 237 ML CAN PO SCH (09:00)
[2020-09-06] MEDS: METOPROLOL SUCCINATE XL 25 MG TAB.SR.24H PO SCH (09:00)
[2020-09-06] MEDS: LORATADINE 10 MG TABLET PO SCH (09:38)
[2020-09-06] MEDS: DOCUSATE SODIUM 100 MG CAPSULE PO SCH (09:38)
[2020-09-06] MEDS: ASPIRIN EC 81 MG TABLET.DR PO SCH (09:38)
[2020-09-06] MEDS: FUROSEMIDE 40 MG TABLET PO SCH (09:38)
[2020-09-06] MEDS: EZETIMIBE 10 MG TABLET PO SCH (09:38)
[2020-09-06] MEDS: AMIODARONE HCL 200 MG TABLET PO SCH (09:39)
[2020-09-06] MEDS: FARXIGA 10 MG PO SCH (09:40)
[2020-09-06] MEDS: MIDODRINE HCL 2.5 MG TABLET PO SCH ×2 (09:40→16:33)
[2020-09-06] MEDS: [UNRECOGNIZED DRUG - OTHER] PO SCH (09:40)
[2020-09-06] MEDS: MIRALAX 17 GM POWD.PACK PO SCH (09:41)
[2020-09-06] MEDS: CLOTRIMAZOLE 1% CREAM 30 GM TUBE TOP SCH ×2 (09:42→16:34)
[2020-09-06 16:00] VITALS: BP 115/43
[2020-09-06] MEDS: ONDANSETRON 4 MG/2 ML VIAL IV PRN (18:46)
[2020-09-06 20:40] VITALS: BP 122/69
[2020-09-06] MEDS: TRAZODONE 100 MG TABLET PO SCH (21:02)
[2020-09-06] MEDS: ATORVASTATIN 40 MG TABLET PO SCH (21:09)
[2020-09-07 04:37] VITALS: BP 103/56
[2020-09-07] MEDS: PANTOPRAZOLE SODIUM 40 MG TABLET.DR PO SCH (06:03)
[2020-09-07] MEDS: LEVOTHYROXINE SODIUM 50 MCG TABLET PO SCH (06:03)
--- NOTE | 2020-09-07 06:50 | NUR ---
Received patient on bed with no respiratory distress noted with visitor at bedside. Patient slept intermittently throughout the night. Assisted in turning and repositioning. All due meds given on time and tolerated well. Kept clean, dry, and comfortable. Call light placed within reach. Frequent visual checks done. Will endorse for continuity of care.
--- NOTE | 2020-09-07 08:00 | NUR ---
AWAKE ALERT AND VERBALLY RESPONSIVE DENIES ACUTE PAIN OR DISTRESS
[2020-09-07] MEDS: MIDODRINE HCL 2.5 MG TABLET PO SCH ×2 (09:00→17:33)
[2020-09-07] MEDS: LORATADINE 10 MG TABLET PO SCH (09:14)
[2020-09-07] MEDS: ASPIRIN EC 81 MG TABLET.DR PO SCH (09:14)
[2020-09-07] MEDS: DOCUSATE SODIUM 100 MG CAPSULE PO SCH (09:14)
[2020-09-07] MEDS: FUROSEMIDE 40 MG TABLET PO SCH (09:15)
[2020-09-07] MEDS: METOPROLOL SUCCINATE XL 25 MG TAB.SR.24H PO SCH (09:15)
[2020-09-07] MEDS: EZETIMIBE 10 MG TABLET PO SCH (09:15)
[2020-09-07] MEDS: AMIODARONE HCL 200 MG TABLET PO SCH (09:16)
[2020-09-07] MEDS: MIRALAX 17 GM POWD.PACK PO SCH (09:17)
[2020-09-07] MEDS: GLUCERNA SHAKE VANILLA 237 ML CAN PO SCH (09:17)
[2020-09-07] MEDS: CLOTRIMAZOLE 1% CREAM 30 GM TUBE TOP SCH ×2 (09:18→17:34)
[2020-09-07] MEDS: [UNRECOGNIZED DRUG - OTHER] PO SCH (09:20)
[2020-09-07] MEDS: Z GUARD REMEDY PASTE 57 GM TUBE TOP PRN (09:20)
[2020-09-07] MEDS: FARXIGA 10 MG PO SCH (09:20)
[2020-09-07 12:00] VITALS: BP 120/43
[2020-09-07 15:33] VITALS: BP 109/80
--- NOTE | 2020-09-07 16:30 | NUR ---
TOLERATING PT WELL, SEE NOTES
[2020-09-07] MEDS: ATORVASTATIN 40 MG TABLET PO SCH (20:09)
[2020-09-07] MEDS: TRAZODONE 100 MG TABLET PO SCH (20:09)
[2020-09-07] MEDS: OXYCODONE/APAP 5-325 MG TABLET PO PRN (20:10)
[2020-09-07 20:20] VITALS: BP 106/44
[2020-09-07 22:20] VITALS: BP 136/44
[2020-09-07] MEDS: ZOLPIDEM 5 MG TABLET PO PRN (23:01)
[2020-09-07] MEDS: ONDANSETRON 4 MG/2 ML VIAL IV PRN (23:47)
--- NOTE | 2020-09-08 02:58 | NUR ---
Awake alert and oriented x3-4 with periods of forgetfulness at times. All needs attended. No acute distress noted. Complained of pain, Percocet given. Relief noted. Requested Zofran, she said feels nauseous, given with relief. On 1L O2 via nasal cannula, pulse ox 95%. Incontinent of bowel and bladder. Kept clean and dry. No BM this shift. Will monitor patient.
[2020-09-08] MEDS: PANTOPRAZOLE SODIUM 40 MG TABLET.DR PO SCH (06:15)
[2020-09-08] MEDS: LEVOTHYROXINE SODIUM 50 MCG TABLET PO SCH (06:15)
[2020-09-08] MEDS: DOCUSATE SODIUM 100 MG CAPSULE PO SCH (07:54)
[2020-09-08] MEDS: EZETIMIBE 10 MG TABLET PO SCH (07:56)
[2020-09-08] MEDS: ASPIRIN EC 81 MG TABLET.DR PO SCH (07:56)
[2020-09-08] MEDS: LORATADINE 10 MG TABLET PO SCH (07:57)
[2020-09-08] MEDS: METOPROLOL SUCCINATE XL 25 MG TAB.SR.24H PO SCH (07:57)
[2020-09-08] MEDS: AMIODARONE HCL 200 MG TABLET PO SCH (07:57)
[2020-09-08] MEDS: FUROSEMIDE 40 MG TABLET PO SCH (07:57)
[2020-09-08] MEDS: GLUCERNA SHAKE VANILLA 237 ML CAN PO SCH (07:58)
[2020-09-08] MEDS: MIDODRINE HCL 2.5 MG TABLET PO SCH ×2 (07:59→16:48)
[2020-09-08] MEDS: MIRALAX 17 GM POWD.PACK PO SCH (07:59)
[2020-09-08] MEDS: [UNRECOGNIZED DRUG - OTHER] PO SCH (07:59)
[2020-09-08] MEDS: FARXIGA 10 MG PO SCH (07:59)
[2020-09-08 08:00] VITALS: BP 106/38
[2020-09-08] MEDS: Z GUARD REMEDY PASTE 57 GM TUBE TOP PRN (08:00)
[2020-09-08] MEDS: CLOTRIMAZOLE 1% CREAM 30 GM TUBE TOP SCH ×2 (08:00→16:48)
[2020-09-08] MEDS: ACETAMINOPHEN 325 MG TABLET PO PRN ×2 (13:08→20:27)
[2020-09-08 16:33] VITALS: BP_SYST 107; BP_SYST 98; BP_DIAS 39; BP_DIAS 71
[2020-09-08 20:27] VITALS: BP 108/42
[2020-09-08] MEDS: ATORVASTATIN 40 MG TABLET PO SCH (20:27)
[2020-09-08] MEDS: TRAZODONE 100 MG TABLET PO SCH (20:27)
[2020-09-09 04:24] VITALS: BP 128/53
[2020-09-09] MEDS: LEVOTHYROXINE SODIUM 50 MCG TABLET PO SCH (06:52)
[2020-09-09] MEDS: PANTOPRAZOLE SODIUM 40 MG TABLET.DR PO SCH (06:52)
--- NOTE | 2020-09-09 06:58 | NUR ---
Shift End Report: VSS. Slept good after taking Tylenol for discomforts. No further complaint presented. Continue care as planned.
[2020-09-09] MEDS: ASPIRIN EC 81 MG TABLET.DR PO SCH (08:13)
[2020-09-09] MEDS: FUROSEMIDE 40 MG TABLET PO SCH (08:13)
[2020-09-09] MEDS: LORATADINE 10 MG TABLET PO SCH (08:13)
[2020-09-09] MEDS: EZETIMIBE 10 MG TABLET PO SCH (08:13)
[2020-09-09] MEDS: DOCUSATE SODIUM 100 MG CAPSULE PO SCH (08:13)
[2020-09-09] MEDS: AMIODARONE HCL 200 MG TABLET PO SCH (08:14)
[2020-09-09] MEDS: FARXIGA 10 MG PO SCH (08:15)
[2020-09-09] MEDS: [UNRECOGNIZED DRUG - OTHER] PO SCH (08:15)
[2020-09-09] MEDS: GLUCERNA SHAKE VANILLA 237 ML CAN PO SCH (08:15)
[2020-09-09 08:18] VITALS: BP 104/46
[2020-09-09] MEDS: METOPROLOL SUCCINATE XL 25 MG TAB.SR.24H PO SCH (08:19)
[2020-09-09] MEDS: MIRALAX 17 GM POWD.PACK PO SCH ×2 (08:19→08:43)
[2020-09-09] MEDS: MIDODRINE HCL 2.5 MG TABLET PO SCH ×2 (08:19→16:42)
[2020-09-09] MEDS: CLOTRIMAZOLE 1% CREAM 30 GM TUBE TOP SCH ×2 (08:20→16:42)
[2020-09-09] MEDS: ACETAMINOPHEN 325 MG TABLET PO PRN (12:23)
[2020-09-09 15:28] VITALS: BP 108/40
--- NOTE | 2020-09-09 17:19 | NUR ---
no acute distress noted during shift, participated with PT,OT services.
[2020-09-09] MEDS: OXYCODONE/APAP 5-325 MG TABLET PO PRN (17:59)
[2020-09-09] MEDS: BISACODYL 10 MG SUPP.RECT RC PRN (18:30)
[2020-09-09] MEDS: ONDANSETRON ODT 4 MG TAB.RAPDIS SL PRN (18:45)
[2020-09-09 21:11] VITALS: BP 123/46
[2020-09-09] MEDS: ATORVASTATIN 40 MG TABLET PO SCH (21:13)
[2020-09-09] MEDS: TRAZODONE 100 MG TABLET PO SCH (21:13)
[2020-09-09] MEDS: ZOLPIDEM 5 MG TABLET PO PRN (23:16)
[2020-09-10 04:27] VITALS: BP 101/35
[2020-09-10] MEDS: OXYCODONE/APAP 5-325 MG TABLET PO PRN ×2 (05:38→20:31)
[2020-09-10] MEDS: LEVOTHYROXINE SODIUM 50 MCG TABLET PO SCH (06:39)
[2020-09-10] MEDS: PANTOPRAZOLE SODIUM 40 MG TABLET.DR PO SCH (06:39)
[2020-09-10 08:04] VITALS: BP 112/46
[2020-09-10] MEDS: DOCUSATE SODIUM 100 MG CAPSULE PO SCH (09:19)
[2020-09-10] MEDS: EZETIMIBE 10 MG TABLET PO SCH (09:19)
[2020-09-10] MEDS: ASPIRIN EC 81 MG TABLET.DR PO SCH (09:19)
[2020-09-10] MEDS: FUROSEMIDE 40 MG TABLET PO SCH (09:20)
[2020-09-10] MEDS: METOPROLOL SUCCINATE XL 25 MG TAB.SR.24H PO SCH (09:20)
[2020-09-10] MEDS: AMIODARONE HCL 200 MG TABLET PO SCH (09:21)
[2020-09-10] MEDS: MIDODRINE HCL 2.5 MG TABLET PO SCH ×2 (09:21→17:04)
[2020-09-10] MEDS: LORATADINE 10 MG TABLET PO SCH (09:21)
[2020-09-10] MEDS: [UNRECOGNIZED DRUG - OTHER] PO SCH (09:22)
[2020-09-10] MEDS: MIRALAX 17 GM POWD.PACK PO SCH (09:22)
[2020-09-10] MEDS: FARXIGA 10 MG PO SCH (09:22)
[2020-09-10] MEDS: GLUCERNA SHAKE VANILLA 237 ML CAN PO SCH (09:35)
[2020-09-10] MEDS: CLOTRIMAZOLE 1% CREAM 30 GM TUBE TOP SCH ×2 (09:35→17:09)
[2020-09-10] MEDS: ACETAMINOPHEN 325 MG TABLET PO PRN ×2 (11:25→17:45)
[2020-09-10 15:43] VITALS: BP 96/32
[2020-09-10] MEDS: ONDANSETRON ODT 4 MG TAB.RAPDIS SL PRN (17:03)
[2020-09-10 20:21] VITALS: BP 114/58
[2020-09-10] MEDS: TRAZODONE 100 MG TABLET PO SCH (20:31)
[2020-09-10] MEDS: ATORVASTATIN 40 MG TABLET PO SCH (20:31)
--- NOTE | 2020-09-10 23:36 | NUR ---
Received patient AXo X4,. able to make needs known. VSS, no acute distress noted. C/o of pain in knees administered Percocet PRN. On continuous O2 via NC at 1L, no respiratory distress noted. Assisted in turning and repositioning. Due medication given and tolerated well. Needs attended to. Safety measures maintained. Call light placed within reach. Frequent visual checks done. Will continue to monitor.
[2020-09-11 04:21] VITALS: BP 135/57
[2020-09-11] MEDS: LEVOTHYROXINE SODIUM 50 MCG TABLET PO SCH (06:08)
[2020-09-11] MEDS: ACETAMINOPHEN 325 MG TABLET PO PRN ×2 (06:08→12:17)
[2020-09-11] MEDS: PANTOPRAZOLE SODIUM 40 MG TABLET.DR PO SCH (06:08)
[2020-09-11 06:31] LABS: HEMATOCRIT 29.1 % (31.2-41.9); MEAN CORPUSCULAR HEMOGLOBIN 28.7 uug (24.7-32.8); MEAN CORPUSCULAR VOLUME 89.8 fL (75.5-95.3); PLATELET COUNT (AUTO) 233 K/uL (179-408)
[2020-09-11 06:44] LABS: CARBON DIOXIDE 33 mmol/L (21-32); CHLORIDE 106 mmol/L (98-107); CREATININE 1.9 mg/dL (0.6-1.3); GLUCOSE 118 mg/dL (74-106); POTASSIUM 3.7 mmol/L (3.5-5.1); UREA NITROGEN, BLOOD 26 mg/dL (7-18)
[2020-09-11 08:00] VITALS: BP 112/45
[2020-09-11] MEDS: ASPIRIN EC 81 MG TABLET.DR PO SCH (08:16)
[2020-09-11] MEDS: EZETIMIBE 10 MG TABLET PO SCH (08:16)
[2020-09-11] MEDS: LORATADINE 10 MG TABLET PO SCH (08:16)
[2020-09-11] MEDS: DOCUSATE SODIUM 100 MG CAPSULE PO SCH (08:17)
[2020-09-11] MEDS: [UNRECOGNIZED DRUG - OTHER] PO SCH (08:17)
[2020-09-11] MEDS: FARXIGA 10 MG PO SCH (08:17)
[2020-09-11] MEDS: AMIODARONE HCL 200 MG TABLET PO SCH (08:21)
[2020-09-11] MEDS: MIRALAX 17 GM POWD.PACK PO SCH (08:21)
[2020-09-11] MEDS: GLUCERNA SHAKE VANILLA 237 ML CAN PO SCH (08:24)
[2020-09-11] MEDS: METOPROLOL SUCCINATE XL 25 MG TAB.SR.24H PO SCH (08:29)
[2020-09-11] MEDS: CLOTRIMAZOLE 1% CREAM 30 GM TUBE TOP SCH ×2 (08:31→16:51)
[2020-09-11] MEDS: MIDODRINE HCL 2.5 MG TABLET PO SCH ×2 (08:34→16:51)
[2020-09-11 10:08] LABS: *BILIRUBIN,URIN NEGATIVE (NEGATIVE); *BLOOD, URINE NEGATIVE (NEGATIVE); *CLARITY,URINE CLEAR (CLEAR); *COLOR,URINE YELLOW (YELLOW); *KETONES,URINE NEGATIVE (NEGATIVE); *UROBILINOGEN,URINE 0.2 E.U./dl (NORMAL); LEUKOCYTE ESTERASE ,URINE NEGATIVE (NEGATIVE); NITRITE, URINE NEGATIVE (NEGATIVE); PH,URINE 5.5 (5.0-8.0); UGLUCOSE 2+ (NEGATIVE)
[2020-09-11 10:25] LABS: *URINE TOTAL PROTEIN RANDOM 36.6 mg/dL (<150/24HR)
[2020-09-11 16:49] VITALS: BP 107/46
[2020-09-11] MEDS: ONDANSETRON ODT 4 MG TAB.RAPDIS SL PRN (19:11)
[2020-09-11] MEDS: OXYCODONE/APAP 5-325 MG TABLET PO PRN (19:12)
[2020-09-11] MEDS: TRAZODONE 100 MG TABLET PO SCH (21:02)
[2020-09-11] MEDS: ATORVASTATIN 40 MG TABLET PO SCH (21:02)
[2020-09-11] MEDS: ZOLPIDEM 5 MG TABLET PO PRN (21:03)
[2020-09-11 21:53] VITALS: BP 102/41
--- NOTE | 2020-09-11 22:15 | NUR ---
Resting in bed. AAOx4 Needs attended. VSS Kept comfortable. On continous 1L O2 via nasal cannula. Medicated with pain earlier plus she said also nauseous Zofran given. Relief noted. All due meds given. Incontinent of bowel and bladder. Kept clean and dry. Siderails up for safety. Fall precautions maintained. Will monitor patient.
[2020-09-12 04:35] VITALS: BP 107/42
[2020-09-12] MEDS: LEVOTHYROXINE SODIUM 50 MCG TABLET PO SCH (06:15)
[2020-09-12] MEDS: PANTOPRAZOLE SODIUM 40 MG TABLET.DR PO SCH (06:15)
[2020-09-12 07:09] LABS: HEMATOCRIT 28.9 % (31.2-41.9); MEAN CORPUSCULAR HEMOGLOBIN 27.8 uug (24.7-32.8); MEAN CORPUSCULAR VOLUME 89.1 fL (75.5-95.3); PLATELET COUNT (AUTO) 225 K/uL (179-408)
[2020-09-12 07:46] LABS: ALANINE AMINOTRANSFERASE 58 U/L (14-59); ALKALINE PHOSPHATASE 692 U/L (50-136); ASPARTATE AMINOTRANSFERASE 44 U/L (15-37); BILIRUBIN,TOTAL 0.8 mg/dL (0.2-1.0); CARBON DIOXIDE 34 mmol/L (21-32); CHLORIDE 105 mmol/L (98-107); CREATINE KINASE, TOTAL 52 U/L (26-192); CREATININE 1.6 mg/dL (0.6-1.3); GLUCOSE 99 mg/dL (74-106); MAGNESIUM 2.2 mg/dL (1.8-2.4); PHOSPHOROUS 3.5 mg/dL (2.5-4.9); POTASSIUM 3.4 mmol/L (3.5-5.1); TOTAL PROTEIN, SERUM 5.6 g/dL (6.4-8.2); UREA NITROGEN, BLOOD 22 mg/dL (7-18)
[2020-09-12 08:00] VITALS: BP 108/45
[2020-09-12] MEDS: ACETAMINOPHEN 325 MG TABLET PO PRN ×2 (08:06→14:48)
[2020-09-12] MEDS: AMIODARONE HCL 200 MG TABLET PO SCH (08:07)
[2020-09-12] MEDS: ASPIRIN EC 81 MG TABLET.DR PO SCH (08:07)
[2020-09-12] MEDS: LORATADINE 10 MG TABLET PO SCH (08:08)
[2020-09-12] MEDS: MIDODRINE HCL 2.5 MG TABLET PO SCH ×2 (08:08→16:49)
[2020-09-12] MEDS: EZETIMIBE 10 MG TABLET PO SCH (08:08)
[2020-09-12] MEDS: MIRALAX 17 GM POWD.PACK PO SCH (08:09)
[2020-09-12] MEDS: [UNRECOGNIZED DRUG - OTHER] PO SCH (08:09)
[2020-09-12] MEDS: FARXIGA 10 MG PO SCH (08:09)
[2020-09-12] MEDS: DOCUSATE SODIUM 100 MG CAPSULE PO SCH (08:09)
[2020-09-12] MEDS: GLUCERNA SHAKE VANILLA 237 ML CAN PO SCH (08:09)
[2020-09-12] MEDS: METOPROLOL SUCCINATE XL 25 MG TAB.SR.24H PO SCH (08:10)
[2020-09-12] MEDS: CLOTRIMAZOLE 1% CREAM 30 GM TUBE TOP SCH ×2 (08:10→16:50)
[2020-09-12] MEDS ORDERED: POTASSIUM CHLORIDE 10 MEQ TAB.PRT.SR PO ONE (10:00)
--- NOTE | 2020-09-12 14:33 | NUR ---
INTERDISCIPLINARY TEAM CONFERENCE
[2020-09-12 16:00] VITALS: BP 113/46
[2020-09-12] MEDS: TRAZODONE 100 MG TABLET PO SCH (20:43)
[2020-09-12] MEDS: ATORVASTATIN 40 MG TABLET PO SCH (20:43)
[2020-09-12] MEDS: ONDANSETRON ODT 4 MG TAB.RAPDIS SL PRN (20:44)
[2020-09-12] MEDS: OXYCODONE/APAP 5-325 MG TABLET PO PRN (20:44)
[2020-09-12] MEDS: ZOLPIDEM 5 MG TABLET PO PRN (20:44)
[2020-09-12 21:00] VITALS: BP 125/46
--- NOTE | 2020-09-12 21:54 | NUR ---
Awake alert and oriented x4 On continous 1L of O2 via nasal cannula, pulse ox 96%. complained of pain and feeling nauseous Zofran given plus Percocet given as well. All needs attended. Incontinent of bowel and bladder, Kept clean and dry. Will monitor patient. Fall precautions maintained. Siderails up for safety. VSS.
[2020-09-13] MEDS: ACETAMINOPHEN 325 MG TABLET PO PRN ×2 (01:53→16:28)
[2020-09-13 04:36] VITALS: BP 115/55
[2020-09-13] MEDS: PANTOPRAZOLE SODIUM 40 MG TABLET.DR PO SCH (06:15)
[2020-09-13] MEDS: LEVOTHYROXINE SODIUM 50 MCG TABLET PO SCH (06:15)
[2020-09-13 07:33] VITALS: BP 123/43
[2020-09-13] MEDS: GLUCERNA SHAKE VANILLA 237 ML CAN PO SCH (09:00)
[2020-09-13] MEDS: LORATADINE 10 MG TABLET PO SCH (09:56)
[2020-09-13] MEDS: DOCUSATE SODIUM 100 MG CAPSULE PO SCH (09:56)
[2020-09-13] MEDS: MIRALAX 17 GM POWD.PACK PO SCH (09:57)
[2020-09-13] MEDS: AMIODARONE HCL 200 MG TABLET PO SCH (09:57)
[2020-09-13] MEDS: EZETIMIBE 10 MG TABLET PO SCH (09:57)
[2020-09-13] MEDS: ASPIRIN EC 81 MG TABLET.DR PO SCH (09:57)
[2020-09-13] MEDS: [UNRECOGNIZED DRUG - OTHER] PO SCH (09:57)
[2020-09-13] MEDS: METOPROLOL SUCCINATE XL 25 MG TAB.SR.24H PO SCH (09:57)
[2020-09-13] MEDS: FARXIGA 10 MG PO SCH (09:57)
[2020-09-13] MEDS: CLOTRIMAZOLE 1% CREAM 30 GM TUBE TOP SCH ×2 (09:59→16:28)
[2020-09-13] MEDS: MIDODRINE HCL 2.5 MG TABLET PO SCH ×2 (10:01→16:22)
[2020-09-13 13:06] LABS: A/G RATIO 0.7 (0.7-1.7); ALBUMIN 2.2 g/dL (2.9-4.4); ALPHA-1-GLOBULIN 0.3 g/dL (0.0-0.4); ALPHA-2-GLOBULIN 0.8 g/dL (0.4-1.0); GAMMA GLOBULIN 0.9 g/dL (0.4-1.8); M-SPIKE Not Observed g/dL (Not Observed)
[2020-09-13 15:25] VITALS: BP 122/57
[2020-09-13] MEDS: ONDANSETRON ODT 4 MG TAB.RAPDIS SL PRN (16:33)
--- NOTE | 2020-09-13 17:24 | NUR ---
The patient is alert/oriented x4. On continuous o2 at 1L/min via NC. No distress noted. Zofran given for nausea, and Tylenol for pain. 1 BM noted during the shift. Safety checks frequently done, and maintained. Kept patient clean, dry, and comfortable. All needs attended. Will continue to monitor for any significant changes.
[2020-09-13] MEDS: OXYCODONE/APAP 5-325 MG TABLET PO PRN (17:55)
[2020-09-13 20:09] VITALS: BP 124/56
[2020-09-13] MEDS: ATORVASTATIN 40 MG TABLET PO SCH (20:52)
[2020-09-13] MEDS: TRAZODONE 100 MG TABLET PO SCH (20:52)
[2020-09-13] MEDS: ZOLPIDEM 5 MG TABLET PO PRN (20:53)
[2020-09-14] MEDS: OXYCODONE/APAP 5-325 MG TABLET PO PRN ×2 (00:52→20:00)
[2020-09-14 04:40] VITALS: BP 125/48
[2020-09-14] MEDS: PANTOPRAZOLE SODIUM 40 MG TABLET.DR PO SCH (05:48)
[2020-09-14] MEDS: LEVOTHYROXINE SODIUM 50 MCG TABLET PO SCH (05:48)
[2020-09-14 07:39] VITALS: BP 111/42
[2020-09-14] MEDS: DOCUSATE SODIUM 100 MG CAPSULE PO SCH (08:57)
[2020-09-14] MEDS: EZETIMIBE 10 MG TABLET PO SCH (08:57)
[2020-09-14] MEDS: LORATADINE 10 MG TABLET PO SCH (08:57)
[2020-09-14] MEDS: ASPIRIN EC 81 MG TABLET.DR PO SCH (08:57)
[2020-09-14] MEDS: METOPROLOL SUCCINATE XL 25 MG TAB.SR.24H PO SCH (08:58)
[2020-09-14] MEDS: ONDANSETRON ODT 4 MG TAB.RAPDIS SL PRN ×2 (08:58→20:07)
[2020-09-14] MEDS: AMIODARONE HCL 200 MG TABLET PO SCH (08:59)
[2020-09-14] MEDS: FARXIGA 10 MG PO SCH (08:59)
[2020-09-14] MEDS: [UNRECOGNIZED DRUG - OTHER] PO SCH (08:59)
[2020-09-14] MEDS: MIRALAX 17 GM POWD.PACK PO SCH (09:00)
[2020-09-14] MEDS: MIDODRINE HCL 2.5 MG TABLET PO SCH ×2 (09:00→17:12)
[2020-09-14] MEDS: CLOTRIMAZOLE 1% CREAM 30 GM TUBE TOP SCH ×2 (09:00→17:13)
[2020-09-14] MEDS: GLUCERNA SHAKE VANILLA 237 ML CAN PO SCH (09:01)
[2020-09-14] MEDS ORDERED: TRIAMCINOLONE ACETONIDE 40 MG/1 ML VIAL IM ONE (12:00)
[2020-09-14] MEDS ORDERED: LIDOCAINE-MPF 1% 5 ML AMPUL INJ ONE (12:00)
[2020-09-14 15:23] VITALS: BP 117/73
[2020-09-14] MEDS: ACETAMINOPHEN 325 MG TABLET PO PRN (15:53)
--- NOTE | 2020-09-14 18:33 | NUR ---
Assisted Dr. Soler with the knee injection procedure, patient tolerated the procedure well. All due meds given as ordered. No respiratory distress. She is on continuous oxygen at 1L/min via NC. Safety checks frequently done, and maintained. Kept patient clean, dry, and comfortable. Will continue to monitor for any significant changes.
[2020-09-14] MEDS: ATORVASTATIN 40 MG TABLET PO SCH (20:08)
[2020-09-14 20:13] VITALS: BP 113/74
[2020-09-14] MEDS: TRAZODONE 100 MG TABLET PO SCH (21:05)
--- NOTE | 2020-09-14 21:33 | NUR ---
Received pt resting in bed. AAO x3-4. No acute distress noted. C/o moderate pain, PRN pain med given as ordered. C/o nausea, gave Zofran with relief. Safety measures maintained. Call light and personal items within reach. Will continue to monitor.
[2020-09-14] MEDS: ZOLPIDEM 5 MG TABLET PO PRN (22:37)
[2020-09-15 04:52] VITALS: BP 135/51
[2020-09-15] MEDS: LEVOTHYROXINE SODIUM 50 MCG TABLET PO SCH (06:53)
[2020-09-15] MEDS: PANTOPRAZOLE SODIUM 40 MG TABLET.DR PO SCH (06:53)
[2020-09-15 08:59] VITALS: BP 130/51
[2020-09-15] MEDS: GLUCERNA SHAKE VANILLA 237 ML CAN PO SCH (09:00)
[2020-09-15] MEDS: CLOTRIMAZOLE 1% CREAM 30 GM TUBE TOP SCH ×3 (09:00→21:30)
[2020-09-15] MEDS: FARXIGA 10 MG PO SCH (09:59)
[2020-09-15] MEDS: MIDODRINE HCL 2.5 MG TABLET PO SCH ×2 (09:59→16:29)
[2020-09-15] MEDS: MIRALAX 17 GM POWD.PACK PO SCH (09:59)
[2020-09-15] MEDS: [UNRECOGNIZED DRUG - OTHER] PO SCH (09:59)
[2020-09-15] MEDS: METOPROLOL SUCCINATE XL 25 MG TAB.SR.24H PO SCH (10:00)
[2020-09-15] MEDS: LORATADINE 10 MG TABLET PO SCH (10:00)
[2020-09-15] MEDS: EZETIMIBE 10 MG TABLET PO SCH (10:00)
[2020-09-15] MEDS: AMIODARONE HCL 200 MG TABLET PO SCH (10:00)
[2020-09-15] MEDS: ASPIRIN EC 81 MG TABLET.DR PO SCH (10:00)
[2020-09-15] MEDS: DOCUSATE SODIUM 100 MG CAPSULE PO SCH (10:00)
[2020-09-15 15:46] VITALS: BP 110/51
[2020-09-15] MEDS: ACETAMINOPHEN 325 MG TABLET PO PRN (16:29)
--- NOTE | 2020-09-15 18:31 | NUR ---
The patient is alert/oriented x4. On continuous o2 at 1L/min via NC. No distress noted. Tylenol PRN given as ordered. Safety checks frequently done, and maintained. Kept patient clean, dry, and comfortable. Call light within reach. All needs attended. Will continue to monitor for any significant changes
[2020-09-15] MEDS: TRAZODONE 100 MG TABLET PO SCH (20:07)
[2020-09-15] MEDS: ATORVASTATIN 40 MG TABLET PO SCH (20:07)
[2020-09-15] MEDS: OXYCODONE/APAP 5-325 MG TABLET PO PRN (20:08)
[2020-09-15] MEDS: ONDANSETRON ODT 4 MG TAB.RAPDIS SL PRN (20:10)
[2020-09-15 20:42] VITALS: BP 138/73
[2020-09-15] MEDS: ZOLPIDEM 5 MG TABLET PO PRN (21:53)
--- NOTE | 2020-09-16 01:00 | NUR ---
VSS, no acute distress noted. C/o of pain in knees administered Percocet PRN. Administered PRN Ambien per pt request, effective. On continuous O2 via NC at 2L, no respiratory distress noted saturating @ 99-100%. Assisted in turning and repositioning. Due medication given and tolerated well. Needs attended to. Safety measures maintained. Call light placed within reach. Frequent visual checks done. Will continue to monitor.
[2020-09-16 04:45] VITALS: BP 121/48
--- NOTE | 2020-09-16 05:34 | NUR ---
Shift End Report: VS stable. Medicated once for pain with relief. No further complaint presented. Slept good. No significant event reported. Continue current rehab plan of care.
[2020-09-16] MEDS: PANTOPRAZOLE SODIUM 40 MG TABLET.DR PO SCH ×2 (05:52→11:24)
[2020-09-16] MEDS: LEVOTHYROXINE SODIUM 50 MCG TABLET PO SCH (05:52)
[2020-09-16 08:52] VITALS: BP 123/58
[2020-09-16] MEDS: MIDODRINE HCL 2.5 MG TABLET PO SCH ×2 (09:00→17:00)
[2020-09-16] MEDS: AMIODARONE HCL 200 MG TABLET PO SCH (11:22)
[2020-09-16] MEDS: LORATADINE 10 MG TABLET PO SCH (11:22)
[2020-09-16] MEDS: EZETIMIBE 10 MG TABLET PO SCH (11:22)
[2020-09-16] MEDS: METOPROLOL SUCCINATE XL 25 MG TAB.SR.24H PO SCH (11:23)
[2020-09-16] MEDS: DOCUSATE SODIUM 100 MG CAPSULE PO SCH ×2 (11:23→18:03)
[2020-09-16] MEDS: ASPIRIN EC 81 MG TABLET.DR PO SCH (11:24)
[2020-09-16] MEDS: MIRALAX 17 GM POWD.PACK PO SCH (11:25)
[2020-09-16] MEDS: ONDANSETRON ODT 4 MG TAB.RAPDIS SL PRN (14:36)
[2020-09-16] MEDS: ACETAMINOPHEN 325 MG TABLET PO PRN (15:59)
[2020-09-16 16:04] VITALS: BP 127/43
[2020-09-16] MEDS: OXYCODONE/APAP 5-325 MG TABLET PO PRN (17:19)
[2020-09-16 20:21] VITALS: BP 119/58
[2020-09-16] MEDS: TRAZODONE 100 MG TABLET PO SCH (20:38)
[2020-09-16] MEDS: ATORVASTATIN 40 MG TABLET PO SCH (20:38)
[2020-09-16] MEDS: GLUCERNA SHAKE VANILLA 237 ML CAN PO SCH (21:30)
[2020-09-16] MEDS: CLOTRIMAZOLE 1% CREAM 30 GM TUBE TOP SCH (21:30)
[2020-09-16] MEDS: ZOLPIDEM 5 MG TABLET PO PRN (21:59)
[2020-09-17] MEDS: OXYCODONE/APAP 5-325 MG TABLET PO PRN ×3 (00:37→20:42)
[2020-09-17 04:24] VITALS: BP 115/46
[2020-09-17] MEDS: LEVOTHYROXINE SODIUM 50 MCG TABLET PO SCH (06:07)
[2020-09-17] MEDS: PANTOPRAZOLE SODIUM 40 MG TABLET.DR PO SCH (06:08)
[2020-09-17 07:33] VITALS: BP 135/53
[2020-09-17] MEDS: CLOTRIMAZOLE 1% CREAM 30 GM TUBE TOP SCH ×2 (09:00→17:07)
[2020-09-17] MEDS: FARXIGA 10 MG PO SCH (09:00)
[2020-09-17] MEDS: MIDODRINE HCL 2.5 MG TABLET PO SCH ×2 (09:00→17:12)
[2020-09-17] MEDS: [UNRECOGNIZED DRUG - OTHER] PO SCH (09:00)
[2020-09-17] MEDS: MIRALAX 17 GM POWD.PACK PO SCH ×2 (09:17→18:09)
[2020-09-17] MEDS: LORATADINE 10 MG TABLET PO SCH (09:21)
[2020-09-17] MEDS: EZETIMIBE 10 MG TABLET PO SCH (09:22)
[2020-09-17] MEDS: METOPROLOL SUCCINATE XL 25 MG TAB.SR.24H PO SCH (09:23)
[2020-09-17] MEDS: ASPIRIN EC 81 MG TABLET.DR PO SCH (09:24)
[2020-09-17] MEDS: AMIODARONE HCL 200 MG TABLET PO SCH (09:24)
[2020-09-17] MEDS: GLUCERNA SHAKE VANILLA 237 ML CAN PO SCH ×2 (12:29→17:05)
[2020-09-17] MEDS: ONDANSETRON ODT 4 MG TAB.RAPDIS SL PRN ×2 (13:44→20:41)
[2020-09-17 15:57] VITALS: BP 136/64
[2020-09-17] MEDS: ACETAMINOPHEN 325 MG TABLET PO PRN (18:08)
[2020-09-17 20:21] VITALS: BP 147/60
[2020-09-17] MEDS: TRAZODONE 100 MG TABLET PO SCH (20:23)
[2020-09-17] MEDS: ATORVASTATIN 40 MG TABLET PO SCH (20:23)
--- NOTE | 2020-09-17 21:00 | NUR ---
Received pt resting in bed. AAO x4. On 1L O2 via NC, no acute distress noted. C/o moderate pain on the knees, pain med and other due meds given as ordered. Safety measures maintained. Call light and personal items within reach. Will continue to monitor.
--- NOTE | 2020-09-17 22:00 | NUR ---
Pt had c/o SOB. O2 sat 92% on 1 L. Increased O2 to 2L with 92% sat. Pt requested to put O2 rate at 3L, with 93% O2 sat. No accessory muscle in use, normal breathing pattern. Notified Dr. Moore with STAT order for CXR. Notified radiology. Will continue to monitor.
[2020-09-18] MEDS: ZOLPIDEM 5 MG TABLET PO PRN (00:58)
[2020-09-18] MEDS: ACETAMINOPHEN 325 MG TABLET PO PRN ×2 (00:58→15:33)
[2020-09-18 04:15] VITALS: BP 148/51
[2020-09-18] MEDS: PANTOPRAZOLE SODIUM 40 MG TABLET.DR PO SCH (06:15)
[2020-09-18] MEDS: LEVOTHYROXINE SODIUM 50 MCG TABLET PO SCH (06:15)
--- NOTE | 2020-09-18 07:06 | NUR ---
Pt slept comfortably. Pt verbalized feeling better and able to breath better. On 3L O2 with O2 sat 94-95%. Will endorse accordingly.
[2020-09-18 07:24] LABS: HEMATOCRIT 28.5 % (31.2-41.9); MEAN CORPUSCULAR HEMOGLOBIN 28.8 uug (24.7-32.8); MEAN CORPUSCULAR VOLUME 89.1 fL (75.5-95.3); PLATELET COUNT (AUTO) 260 K/uL (179-408)
[2020-09-18 07:32] LABS: ALANINE AMINOTRANSFERASE 33 U/L (14-59); ALKALINE PHOSPHATASE 434 U/L (50-136); ASPARTATE AMINOTRANSFERASE 33 U/L (15-37); BILIRUBIN,TOTAL 0.8 mg/dL (0.2-1.0); CARBON DIOXIDE 29 mmol/L (21-32); CHLORIDE 103 mmol/L (98-107); CREATININE 1.5 mg/dL (0.6-1.3); GLUCOSE 106 mg/dL (74-106); MAGNESIUM 2.5 mg/dL (1.8-2.4); PHOSPHOROUS 4.4 mg/dL (2.5-4.9); POTASSIUM 4.6 mmol/L (3.5-5.1); TOTAL PROTEIN, SERUM 6.4 g/dL (6.4-8.2); UREA NITROGEN, BLOOD 29 mg/dL (7-18)
[2020-09-18 08:16] VITALS: BP 138/63
[2020-09-18] MEDS: LORATADINE 10 MG TABLET PO SCH (08:31)
[2020-09-18] MEDS: EZETIMIBE 10 MG TABLET PO SCH (08:31)
[2020-09-18] MEDS: AMIODARONE HCL 200 MG TABLET PO SCH (08:32)
[2020-09-18] MEDS: ASPIRIN EC 81 MG TABLET.DR PO SCH (08:32)
[2020-09-18] MEDS: MIDODRINE HCL 2.5 MG TABLET PO SCH ×2 (08:33→17:00)
[2020-09-18] MEDS: METOPROLOL SUCCINATE XL 25 MG TAB.SR.24H PO SCH (08:33)
[2020-09-18] MEDS: FARXIGA 10 MG PO SCH (08:34)
[2020-09-18] MEDS: [UNRECOGNIZED DRUG - OTHER] PO SCH (08:34)
[2020-09-18] MEDS: DOCUSATE SODIUM 100 MG CAPSULE PO SCH (08:38)
[2020-09-18] MEDS: CLOTRIMAZOLE 1% CREAM 30 GM TUBE TOP SCH ×2 (08:40→18:28)
[2020-09-18] MEDS: GLUCERNA SHAKE VANILLA 237 ML CAN PO SCH ×2 (08:40→17:00)
[2020-09-18] MEDS: Z GUARD REMEDY PASTE 57 GM TUBE TOP PRN (08:42)
[2020-09-18] MEDS: ONDANSETRON ODT 4 MG TAB.RAPDIS SL PRN (10:27)
[2020-09-18 15:15] VITALS: BP 152/62
--- NOTE | 2020-09-18 19:00 | NUR ---
The patient is alert/oriented x4. Not in any distress. Safety checks frequently done, and maintained. Kept patient clean, dry, and comfortable. Call light within reach. All needs attended. Will continue to monitor.
[2020-09-18 20:40] VITALS: BP 103/61
[2020-09-18] MEDS: TRAZODONE 100 MG TABLET PO SCH (20:42)
[2020-09-18] MEDS: ATORVASTATIN 40 MG TABLET PO SCH (20:42)
[2020-09-18] MEDS: OXYCODONE/APAP 5-325 MG TABLET PO PRN (21:05)
[2020-09-18] MEDS: IPRATROPIUM BROMIDE 0.5 MG/2.5 ML NEBU NEB PRN (21:34)
[2020-09-18] MEDS: ALBUTEROL SULFATE 2.5 MG/3 ML NEBU NEB PRN (21:34)
[2020-09-19] MEDS: IPRATROPIUM BROMIDE 0.5 MG/2.5 ML NEBU NEB PRN ×3 (03:21→17:13)
[2020-09-19] MEDS: ALBUTEROL SULFATE 2.5 MG/3 ML NEBU NEB PRN ×4 (03:22→17:13)
[2020-09-19 04:35] VITALS: BP 126/46
[2020-09-19] MEDS: PANTOPRAZOLE SODIUM 40 MG TABLET.DR PO SCH (06:12)
[2020-09-19] MEDS: LEVOTHYROXINE SODIUM 50 MCG TABLET PO SCH (06:13)
[2020-09-19 06:35] LABS: HEMATOCRIT 25.2 % (31.2-41.9); MEAN CORPUSCULAR HEMOGLOBIN 28.4 uug (24.7-32.8); MEAN CORPUSCULAR VOLUME 89.2 fL (75.5-95.3); PLATELET COUNT (AUTO) 234 K/uL (179-408)
[2020-09-19 06:52] LABS: ALANINE AMINOTRANSFERASE 37 U/L (14-59); ALKALINE PHOSPHATASE 362 U/L (50-136); ASPARTATE AMINOTRANSFERASE 33 U/L (15-37); BILIRUBIN,TOTAL 0.7 mg/dL (0.2-1.0); CARBON DIOXIDE 28 mmol/L (21-32); CHLORIDE 104 mmol/L (98-107); CREATININE 1.4 mg/dL (0.6-1.3); GLUCOSE 111 mg/dL (74-106); MAGNESIUM 2.5 mg/dL (1.8-2.4); PHOSPHOROUS 4.3 mg/dL (2.5-4.9); POTASSIUM 4.5 mmol/L (3.5-5.1); TOTAL PROTEIN, SERUM 5.9 g/dL (6.4-8.2); UREA NITROGEN, BLOOD 29 mg/dL (7-18)
[2020-09-19 07:35] VITALS: BP 126/49
[2020-09-19 08:36] LABS: ABG BASE EXCESS 3.9 mmol/L; ABG HCO3 28.3 mmol/L; ABG PCO2 41.9 mmHg (35.0-45.0); ABG PH 7.447 (7.350-7.450); ABG PO2 104.9 mmHg (75.0-100.0); ABG SITE LEFT RADIAL; ABG TOTAL HEMOGLOBIN 9.8 G/dL (12.0-16.0); COHb 0.7 % (0.5-1.5); MetHb 0.2 % (0.0-1.5); VENT MODE Nasal Cannula
[2020-09-19] MEDS: LORATADINE 10 MG TABLET PO SCH (08:54)
[2020-09-19] MEDS: DOCUSATE SODIUM 100 MG CAPSULE PO SCH (08:54)
[2020-09-19] MEDS: ASPIRIN EC 81 MG TABLET.DR PO SCH (08:54)
[2020-09-19] MEDS: METOPROLOL SUCCINATE XL 25 MG TAB.SR.24H PO SCH (08:55)
[2020-09-19] MEDS: FARXIGA 10 MG PO SCH (08:55)
[2020-09-19] MEDS: EZETIMIBE 10 MG TABLET PO SCH (08:55)
[2020-09-19] MEDS: AMIODARONE HCL 200 MG TABLET PO SCH (08:55)
[2020-09-19] MEDS: [UNRECOGNIZED DRUG - OTHER] PO SCH (08:55)
[2020-09-19] MEDS: GLUCERNA SHAKE VANILLA 237 ML CAN PO SCH ×2 (08:56→17:57)
[2020-09-19] MEDS: MIDODRINE HCL 2.5 MG TABLET PO SCH ×2 (08:56→17:56)
[2020-09-19] MEDS: MIRALAX 17 GM POWD.PACK PO SCH (08:57)
[2020-09-19] MEDS: CLOTRIMAZOLE 1% CREAM 30 GM TUBE TOP SCH ×2 (08:57→17:56)
[2020-09-19 15:30] VITALS: BP 146/73
--- NOTE | 2020-09-19 19:03 | NUR ---
INTERDISCIPLINARY TEAM CONFERENCE
[2020-09-19] MEDS: BUMETANIDE 1 MG TABLET PO SCH (20:07)
[2020-09-19] MEDS: OXYCODONE/APAP 5-325 MG TABLET PO PRN (20:07)
[2020-09-19] MEDS: TRAZODONE 100 MG TABLET PO SCH (20:07)
[2020-09-19] MEDS: ATORVASTATIN 40 MG TABLET PO SCH (20:08)
--- NOTE | 2020-09-19 20:12 | NUR ---
Increased O2 from 2L/min via NC to 3L, O2 sat 91%, now 94%. Will monitor.
[2020-09-19] MEDS: ZOLPIDEM 5 MG TABLET PO PRN (21:44)
--- NOTE | 2020-09-19 21:47 | NUR ---
Oxygen saturation re checked per patient request 94% on 3L, tapered down to 2L now 93%. HOB elevated. Will continue to monitor.
[2020-09-19 22:25] VITALS: BP 121/54
[2020-09-20 04:25] VITALS: BP 141/54
--- NOTE | 2020-09-20 05:13 | NUR ---
Very anxious about her O2 sat. Frequent cheking done. Kept on 2l/min for now since it remain on 93% up to this time. Medicated once for pain on both knees with relief. No further complaint presented. VS stable. No acute respiratory distress noted.
[2020-09-20] MEDS: PANTOPRAZOLE SODIUM 40 MG TABLET.DR PO SCH (06:21)
[2020-09-20] MEDS: LEVOTHYROXINE SODIUM 50 MCG TABLET PO SCH (06:21)
[2020-09-20] MEDS: CLOTRIMAZOLE 1% CREAM 30 GM TUBE TOP SCH ×2 (09:00→17:12)
[2020-09-20 09:07] VITALS: BP 155/74
[2020-09-20] MEDS: DOCUSATE SODIUM 100 MG CAPSULE PO SCH (09:57)
[2020-09-20] MEDS: EZETIMIBE 10 MG TABLET PO SCH (09:57)
[2020-09-20] MEDS: ASPIRIN EC 81 MG TABLET.DR PO SCH (09:57)
[2020-09-20] MEDS: LORATADINE 10 MG TABLET PO SCH (09:57)
[2020-09-20] MEDS: BUMETANIDE 1 MG TABLET PO SCH (09:57)
[2020-09-20] MEDS: MIRALAX 17 GM POWD.PACK PO SCH (09:58)
[2020-09-20] MEDS: METOPROLOL SUCCINATE XL 25 MG TAB.SR.24H PO SCH (09:58)
[2020-09-20] MEDS: AMIODARONE HCL 200 MG TABLET PO SCH (09:58)
[2020-09-20] MEDS: GLUCERNA SHAKE VANILLA 237 ML CAN PO SCH ×2 (10:01→17:11)
[2020-09-20] MEDS: [UNRECOGNIZED DRUG - OTHER] PO SCH (10:01)
[2020-09-20] MEDS: FARXIGA 10 MG PO SCH (10:01)
--- NOTE | 2020-09-20 10:18 | NUR ---
The patient was noted wheezing, o2 sat at 92% on 3Lpm via NC, HR 105, BP 155/74, RR 20. Uses accessory muscles. Able to make needs known. Reported to RT for PRN breathing treatment, seen and done, tolerated well. Dr Elise aware of wheezing, he made rounds, stated to have the breathing treatment done. Kept on high fowlers position. Frequent checks done. All due meds given. Will continue to monitor.
[2020-09-20] MEDS: ALBUTEROL SULFATE 2.5 MG/3 ML NEBU NEB PRN ×2 (10:33→17:39)
[2020-09-20] MEDS: IPRATROPIUM BROMIDE 0.5 MG/2.5 ML NEBU NEB PRN ×2 (10:33→17:39)
[2020-09-20] MEDS: ONDANSETRON ODT 4 MG TAB.RAPDIS SL PRN ×2 (12:28→20:07)
--- NOTE | 2020-09-20 12:30 | NUR ---
Patient checked done, latest vital signs BP 112/67, 94% at 3L/min via NC, HR 109, RR 20. Patient denies discomfort. On high fowlers position. Lung sounds clear, bilateral. Will continue to monitor.
[2020-09-20] MEDS: ACETAMINOPHEN 325 MG TABLET PO PRN (15:06)
[2020-09-20 16:13] VITALS: BP 144/52
--- NOTE | 2020-09-20 18:35 | NUR ---
Patient remained comfortable and vital sign stable. Dr. Soler ordered cardio consult. Dr Pepper made aware, ordered echocardiogram, and stated patient will be seen tomorrow. Echocardiogram result in the chart, relayed to Dr. Pepper with no new order. Safety precaution maintained. all needs attended. will continue to monitor.
[2020-09-20] MEDS: TRAZODONE 100 MG TABLET PO SCH (20:06)
[2020-09-20] MEDS: ATORVASTATIN 40 MG TABLET PO SCH (20:06)
[2020-09-20] MEDS: OXYCODONE/APAP 5-325 MG TABLET PO PRN (20:06)
[2020-09-20 20:25] VITALS: BP 132/52
[2020-09-20] MEDS: ZOLPIDEM 5 MG TABLET PO PRN (23:14)
[2020-09-21 04:25] VITALS: BP 106/63
[2020-09-21] MEDS: PANTOPRAZOLE SODIUM 40 MG TABLET.DR PO SCH (06:02)
[2020-09-21] MEDS: LEVOTHYROXINE SODIUM 50 MCG TABLET PO SCH (06:02)
--- NOTE | 2020-09-21 06:31 | NUR ---
O2 saturation WNL all night, only this Am that O2 sat dropped to 90-91% on 1L/min, bumped O2 to 3L same time encouraging and performing deep breathing exercises, O2 sat remained between 91-93% at this time. Will continue to monitor.
[2020-09-21 06:52] LABS: HEMATOCRIT 28.7 % (31.2-41.9); MEAN CORPUSCULAR HEMOGLOBIN 28.2 uug (24.7-32.8); MEAN CORPUSCULAR VOLUME 88.2 fL (75.5-95.3); PLATELET COUNT (AUTO) 288 K/uL (179-408)
[2020-09-21 07:07] LABS: CREATININE 1.3 mg/dL (0.6-1.3); MAGNESIUM 2.4 mg/dL (1.8-2.4); PHOSPHOROUS 4.5 mg/dL (2.5-4.9)
[2020-09-21] MEDS: ALBUTEROL SULFATE 2.5 MG/3 ML NEBU NEB PRN (08:08)
[2020-09-21] MEDS: IPRATROPIUM BROMIDE 0.5 MG/2.5 ML NEBU NEB PRN (08:08)
[2020-09-21] MEDS: AMIODARONE HCL 200 MG TABLET PO SCH (08:40)
[2020-09-21] MEDS: DOCUSATE SODIUM 100 MG CAPSULE PO SCH (08:40)
[2020-09-21] MEDS: ASPIRIN EC 81 MG TABLET.DR PO SCH (08:40)
[2020-09-21] MEDS: METOPROLOL SUCCINATE XL 25 MG TAB.SR.24H PO SCH (08:40)
[2020-09-21] MEDS: EZETIMIBE 10 MG TABLET PO SCH (08:40)
[2020-09-21] MEDS: FARXIGA 10 MG PO SCH (08:41)
[2020-09-21] MEDS: [UNRECOGNIZED DRUG - OTHER] PO SCH (08:41)
[2020-09-21] MEDS: LORATADINE 10 MG TABLET PO SCH (08:41)
[2020-09-21] MEDS: MIRALAX 17 GM POWD.PACK PO SCH (08:42)
[2020-09-21] MEDS: GLUCERNA SHAKE VANILLA 237 ML CAN PO SCH (08:42)
[2020-09-21] MEDS: CLOTRIMAZOLE 1% CREAM 30 GM TUBE TOP SCH (08:42)
[2020-09-21 08:45] VITALS: BP 145/61
[2020-09-21] MEDS ORDERED: LOSARTAN POTASSIUM 25 MG TABLET PO SCH (09:00)
[2020-09-21 11:35] VITALS: BP 138/60
[2020-09-21] MEDS: FUROSEMIDE 40 MG/4 ML VIAL IV SCH ×2 (12:50→13:05)
[2020-09-21] MEDS: ONDANSETRON ODT 4 MG TAB.RAPDIS SL PRN (13:06)
== END 2020-09-21 13:16 | disposition short-term general hospital (02) | DRG 56 ==
PROVIDERS: ADMIT Physical Medicine & Rehabilitation Pain Medicine; ATTEND Physical Medicine & Rehabilitation Pain Medicine
DX: I69.351 Hemiplegia and hemiparesis following cerebral infarction affecting right dominant side (principal); J96.01 Acute respiratory failure with hypoxia; J18.9 Pneumonia, unspecified organism; I50.43 Acute on chronic combined systolic (congestive) and diastolic (congestive) heart failure; I13.0 Hypertensive heart and chronic kidney disease with heart failure and stage 1 through stage 4 chronic kidney disease, or unspecified chronic kidney disease; J44.0 Chronic obstructive pulmonary disease with (acute) lower respiratory infection; I42.9 Cardiomyopathy, unspecified; I25.3 Aneurysm of heart; N17.9 Acute kidney failure, unspecified; I69.398 Other sequelae of cerebral infarction; E03.9 Hypothyroidism, unspecified; E11.22 Type 2 diabetes mellitus with diabetic chronic kidney disease; E78.5 Hyperlipidemia, unspecified; I25.2 Old myocardial infarction; I25.10 Atherosclerotic heart disease of native coronary artery without angina pectoris; I48.0 Paroxysmal atrial fibrillation; D64.9 Anemia, unspecified; F32.9 Major depressive disorder, single episode, unspecified; I08.1 Rheumatic disorders of both mitral and tricuspid valves; I25.5 Ischemic cardiomyopathy; I27.20 Pulmonary hypertension, unspecified; M25.561 Pain in right knee; M17.10 Unilateral primary osteoarthritis, unspecified knee; N18.30 Chronic kidney disease, stage 3 unspecified; R32 Unspecified urinary incontinence; Z79.01 Long term (current) use of anticoagulants; Z85.3 Personal history of malignant neoplasm of breast; Z87.891 Personal history of nicotine dependence; Z88.0 Allergy status to penicillin; Z90.11 Acquired absence of right breast and nipple; R53.1 Weakness; M25.562 Pain in left knee
CPT/HCPCS: 36415; 36600; 71045; 83735; 83970; 84100; 84155; 84156; 84165; 84300; 85025; 86140; 93307; 94640; 94664; 97161; A4663; A6209; J1940; J2405; J3301; J3490; J3590; Q0162

== ENCOUNTER 2020-09-21 13:53 | Inpatient (IN) | payer MEDICARE, BC ==
[~2020-09-21] VITALS: Ht 152.4 cm; Wt 68.9 kg
[~2020-09-21 13:53] MED LIST changes: +AMIO200T7 PO; -ATOR40TA PO; +ATOR80TA PO; -CARV25TA2 PO; -CLOP75TA33 PO; -DIGO125T PO; +DOCU100C36 PO; +EZET10TA15 PO; -FURO-151 PO; +FURO40TA5 PO; -LEVO500T2 PO; -LISI20TA30 PO; +LORA10TA7 PO; +METO-356 PO; +MIDO2.5T PO; +PANT40TA49 PO; +POLY17PO4 PO; -SPIR25TA PO
[2020-09-21 15:02] VITALS: BP 123/67
--- NOTE | 2020-09-21 16:00 | NUR ---
Pt was received to care from ARU department. Pt is awake, A/Ox4. Pt is calm and cooperative with assessment. Skin check is done. Pt is incontinent. Pt denies chest pain or distress. Pt needs assistance with most activities. Pt was able to provide some information. Dr. Herrmann was notified about admission.
[2020-09-21] MEDS ORDERED: TRIAMCINOLONE ACET 0.1% CREAM 15 GM TUBE TOP PRN (17:15)
[2020-09-21] MEDS ORDERED: BISACODYL 10 MG SUPP.RECT RC PRN (17:15)
[2020-09-21] MEDS ORDERED: ALBUTEROL SULFATE 2.5 MG/3 ML NEBU NEB PRN (17:15)
[2020-09-21] MEDS ORDERED: MIRALAX 17 GM POWD.PACK PO PRN (17:15)
[2020-09-21] MEDS ORDERED: Z GUARD REMEDY PASTE 57 GM TUBE TOP PRN (17:15)
[2020-09-21] MEDS ORDERED: ONDANSETRON ODT 4 MG TAB.RAPDIS SL PRN (17:15)
[2020-09-21 20:00] VITALS: BP 125/68
[2020-09-21] MEDS: TRAZODONE 100 MG TABLET PO SCH (20:26)
[2020-09-21] MEDS: ATORVASTATIN 40 MG TABLET PO SCH (20:26)
[2020-09-21] MEDS: OXYCODONE/APAP 5-325 MG TABLET PO PRN (20:27)
[2020-09-21] MEDS: FUROSEMIDE 40 MG/4 ML VIAL IV SCH (21:18)
[2020-09-22 00:25] VITALS: BP 129/49
[2020-09-22] MEDS: IPRATROPIUM BROMIDE 0.5 MG/2.5 ML NEBU NEB PRN ×2 (03:30→17:20)
[2020-09-22] MEDS: ALBUTEROL SULFATE 2.5 MG/3 ML NEBU NEB PRN ×2 (03:31→17:20)
[2020-09-22 04:34] VITALS: BP 130/52
[2020-09-22] MEDS: FUROSEMIDE 40 MG/4 ML VIAL IV SCH ×3 (05:58→21:33)
[2020-09-22] MEDS: LEVOTHYROXINE SODIUM 50 MCG TABLET PO SCH (06:01)
[2020-09-22] MEDS: PANTOPRAZOLE SODIUM 40 MG TABLET.DR PO SCH (06:01)
--- NOTE | 2020-09-22 06:50 | NUR ---
PATIENT ASLEEP IN BED. EASILY AROUSABLE. ON TELE SR. SLEPT WELL. VSS. NO RESP. DISTRESS NOTED. CALL LIGHT IN REACH. ALL NEEDS ATTENDED. WILL CONTINUE TO MONITOR AND ASSESS.
[2020-09-22] MEDS: GLUCERNA SHAKE VANILLA 237 ML CAN PO SCH ×2 (08:00→16:28)
--- NOTE | 2020-09-22 08:00 | NUR ---
RECEIVED PATIENT IN BED AWAKE ALERT AND AWARE BUT IS FORGETFUL AT TIMES.ON O2 WITH NO SHORTNESS OF BREATH AT THIS TIME TURNED AND REPOSITIONED Q2H FOR COMFORT FOR COMFORT AND GOOD BODY ALLIGNMENT PATIENT TENDS TO LEAN TO THE RIGHT SIDE OF HER BED ASSISTED WITH MEALS MADE COMFORTABLE WILL CONTINUE TO OBSERVE.
[2020-09-22] MEDS: DOCUSATE SODIUM 100 MG CAPSULE PO SCH (08:28)
[2020-09-22] MEDS: AMIODARONE HCL 200 MG TABLET PO SCH (08:28)
[2020-09-22] MEDS: ASPIRIN EC 81 MG TABLET.DR PO SCH (08:28)
[2020-09-22] MEDS: EZETIMIBE 10 MG TABLET PO SCH (08:28)
[2020-09-22] MEDS: FARXIGA 10MG TABLET PO SCH (08:29)
[2020-09-22] MEDS: CLOTRIMAZOLE 1% CREAM 30 GM TUBE TOP SCH ×2 (08:30→16:28)
[2020-09-22] MEDS: LOSARTAN POTASSIUM 25 MG TABLET PO SCH (08:36)
[2020-09-22] MEDS: METOPROLOL SUCCINATE XL 25 MG TAB.SR.24H PO SCH (08:36)
[2020-09-22] MEDS: MIRALAX 17 GM POWD.PACK PO SCH (08:41)
[2020-09-22 12:00] VITALS: BP 122/61
[2020-09-22 12:09] LABS: HEMATOCRIT 27.3 % (31.2-41.9); MEAN CORPUSCULAR HEMOGLOBIN 28.5 uug (24.7-32.8); MEAN CORPUSCULAR VOLUME 87.6 fL (75.5-95.3); PLATELET COUNT (AUTO) 282 K/uL (179-408)
[2020-09-22 12:32] LABS: ALANINE AMINOTRANSFERASE 48 U/L (14-59); ALKALINE PHOSPHATASE 297 U/L (50-136); ASPARTATE AMINOTRANSFERASE 49 U/L (15-37); BILIRUBIN,TOTAL 0.7 mg/dL (0.2-1.0); CARBON DIOXIDE 35 mmol/L (21-32); CHLORIDE 100 mmol/L (98-107); CREATININE 1.5 mg/dL (0.6-1.3); GLUCOSE 138 mg/dL (74-106); PHOSPHOROUS 3.8 mg/dL (2.5-4.9); POTASSIUM 3.6 mmol/L (3.5-5.1); TOTAL PROTEIN, SERUM 6.3 g/dL (6.4-8.2); UREA NITROGEN, BLOOD 31 mg/dL (7-18)
--- NOTE | 2020-09-22 14:00 | NUR ---
LASIX IVP GIVEN ORDERED AND IS DIURESING REMAIN INCONTINENT OF URINE LEFT UPPER ARM MID LINE REMAINS INTACT WITH NO S/S OF INFILTERATION AT THIS TIME TOTALLY DEPENDENT FOR ALL ADL TURNED AND REPOSITIONED Q2H MADE COMFABLE WILL CONTINUE TO OBSERVE.
[2020-09-22 16:00] VITALS: BP 116/62
[2020-09-22] MEDS: OXYCODONE/APAP 5-325 MG TABLET PO PRN (20:12)
[2020-09-22] MEDS: ATORVASTATIN 40 MG TABLET PO SCH (20:12)
[2020-09-22] MEDS: TRAZODONE 100 MG TABLET PO SCH (20:12)
[2020-09-22 20:38] VITALS: BP 126/51
[2020-09-23] MEDS: ZOLPIDEM 5 MG TABLET PO PRN ×2 (00:31→21:52)
[2020-09-23] MEDS: ACETAMINOPHEN 325 MG TABLET PO PRN (00:31)
[2020-09-23 00:43] VITALS: BP 142/61
[2020-09-23 04:42] VITALS: BP 137/59
[2020-09-23] MEDS: FUROSEMIDE 40 MG/4 ML VIAL IV SCH ×4 (05:55→23:53)
[2020-09-23 06:36] LABS: HEMATOCRIT 27.2 % (31.2-41.9); MEAN CORPUSCULAR HEMOGLOBIN 28.6 uug (24.7-32.8); MEAN CORPUSCULAR VOLUME 87.8 fL (75.5-95.3); PLATELET COUNT (AUTO) 263 K/uL (179-408)
[2020-09-23] MEDS: LEVOTHYROXINE SODIUM 50 MCG TABLET PO SCH (06:36)
[2020-09-23] MEDS: PANTOPRAZOLE SODIUM 40 MG TABLET.DR PO SCH (06:36)
[2020-09-23 07:00] LABS: ALANINE AMINOTRANSFERASE 39 U/L (14-59); ALKALINE PHOSPHATASE 269 U/L (50-136); ASPARTATE AMINOTRANSFERASE 47 U/L (15-37); BILIRUBIN,TOTAL 0.7 mg/dL (0.2-1.0); CARBON DIOXIDE 36 mmol/L (21-32); CHLORIDE 100 mmol/L (98-107); CREATININE 1.4 mg/dL (0.6-1.3); GLUCOSE 103 mg/dL (74-106); POTASSIUM 3.5 mmol/L (3.5-5.1); TOTAL PROTEIN, SERUM 6.1 g/dL (6.4-8.2); UREA NITROGEN, BLOOD 28 mg/dL (7-18)
[2020-09-23 08:00] VITALS: BP 149/60
[2020-09-23] MEDS: GLUCERNA SHAKE VANILLA 237 ML CAN PO SCH ×2 (08:16→16:03)
[2020-09-23] MEDS: FARXIGA 10MG TABLET PO SCH (08:21)
[2020-09-23] MEDS: MIRALAX 17 GM POWD.PACK PO SCH (08:22)
[2020-09-23] MEDS: EZETIMIBE 10 MG TABLET PO SCH (08:23)
[2020-09-23] MEDS: AMIODARONE HCL 200 MG TABLET PO SCH (08:23)
[2020-09-23] MEDS: DOCUSATE SODIUM 100 MG CAPSULE PO SCH (08:24)
[2020-09-23] MEDS: METOPROLOL SUCCINATE XL 25 MG TAB.SR.24H PO SCH (08:24)
[2020-09-23] MEDS: ASPIRIN EC 81 MG TABLET.DR PO SCH (08:25)
[2020-09-23] MEDS: CLOTRIMAZOLE 1% CREAM 30 GM TUBE TOP SCH ×2 (08:25→16:34)
[2020-09-23] MEDS: LOSARTAN POTASSIUM 25 MG TABLET PO SCH (08:25)
[2020-09-23] MEDS: ALBUTEROL SULFATE 2.5 MG/3 ML NEBU NEB PRN ×3 (09:30→21:47)
[2020-09-23] MEDS: IPRATROPIUM BROMIDE 0.5 MG/2.5 ML NEBU NEB PRN ×3 (09:30→21:47)
[2020-09-23] MEDS: LORATADINE 10 MG TABLET PO PRN ×2 (11:40→18:35)
[2020-09-23 12:00] VITALS: BP 106/61
[2020-09-23] MEDS: OXYCODONE/APAP 5-325 MG TABLET PO PRN ×2 (12:37→18:41)
[2020-09-23 16:00] VITALS: BP 109/55
[2020-09-23] MEDS: TRAZODONE 100 MG TABLET PO SCH (20:46)
[2020-09-23] MEDS: ATORVASTATIN 40 MG TABLET PO SCH (20:46)
[2020-09-23 20:47] VITALS: BP 119/48
[2020-09-24 00:49] VITALS: BP 112/48
[2020-09-24 04:42] VITALS: BP 106/59
[2020-09-24] MEDS: FUROSEMIDE 40 MG/4 ML VIAL IV SCH (05:30)
[2020-09-24] MEDS: LEVOTHYROXINE SODIUM 50 MCG TABLET PO SCH (06:03)
[2020-09-24] MEDS: PANTOPRAZOLE SODIUM 40 MG TABLET.DR PO SCH (06:03)
--- NOTE | 2020-09-24 06:27 | NUR ---
Patient slept well through out the night.O2 at 3LPM via NC saturating at 96%. No s/s of distress noted. Denies pain.Midline on left upper arm patent and intact.Lasix IVP given as ordered.NSR on Tele.Breathing tx provided by Rt.HOB elevated . Incontinent.Changed and repositioned patient.Call light with in reach. all needs anticipated and met accordingly. Will endorse to oncoming shift.
[2020-09-24 06:38] LABS: HEMATOCRIT 28.5 % (31.2-41.9); MEAN CORPUSCULAR HEMOGLOBIN 27.9 uug (24.7-32.8); MEAN CORPUSCULAR VOLUME 86.6 fL (75.5-95.3); PLATELET COUNT (AUTO) 262 K/uL (179-408)
[2020-09-24 07:05] LABS: BILIRUBIN,TOTAL 0.6 mg/dL (0.2-1.0); CREATININE 1.3 mg/dL (0.6-1.3); MAGNESIUM 1.9 mg/dL (1.8-2.4); PHOSPHOROUS 3.9 mg/dL (2.5-4.9); POTASSIUM 3.3 mmol/L (3.5-5.1); TOTAL PROTEIN, SERUM 6.2 g/dL (6.4-8.2)
[2020-09-24] MEDS: GLUCERNA SHAKE VANILLA 237 ML CAN PO SCH ×2 (08:00→17:00)
[2020-09-24] MEDS: IPRATROPIUM BROMIDE 0.5 MG/2.5 ML NEBU NEB PRN ×3 (08:16→23:14)
[2020-09-24] MEDS: ALBUTEROL SULFATE 2.5 MG/3 ML NEBU NEB PRN ×3 (08:16→23:14)
[2020-09-24] MEDS: DOCUSATE SODIUM 100 MG CAPSULE PO SCH ×3 (09:00→12:49)
[2020-09-24] MEDS ORDERED: POTASSIUM CHLORIDE 20 MEQ POWDER PACKET GT ONE (09:15)
[2020-09-24] MEDS ORDERED: POTASSIUM CHLORIDE 20 MEQ TAB.PRT.SR PO ONE ×2 (09:15→13:00)
[2020-09-24] MEDS: ASPIRIN EC 81 MG TABLET.DR PO SCH (09:31)
[2020-09-24] MEDS: EZETIMIBE 10 MG TABLET PO SCH (09:31)
[2020-09-24] MEDS: MIRALAX 17 GM POWD.PACK PO SCH (09:32)
[2020-09-24] MEDS: METOPROLOL SUCCINATE XL 25 MG TAB.SR.24H PO SCH (09:36)
[2020-09-24] MEDS: CLOTRIMAZOLE 1% CREAM 30 GM TUBE TOP SCH ×2 (09:36→17:12)
[2020-09-24] MEDS: LORATADINE 10 MG TABLET PO PRN (09:38)
[2020-09-24] MEDS: LOSARTAN POTASSIUM 25 MG TABLET PO SCH (09:39)
[2020-09-24] MEDS: AMIODARONE HCL 200 MG TABLET PO SCH (09:40)
[2020-09-24] MEDS: FARXIGA 10MG TABLET PO SCH (09:41)
[2020-09-24 12:00] VITALS: BP 121/31
[2020-09-24] MEDS: ACETAMINOPHEN 325 MG TABLET PO PRN (12:41)
[2020-09-24] MEDS: OXYCODONE/APAP 5-325 MG TABLET PO PRN (15:23)
[2020-09-24 16:00] VITALS: BP 116/45
[2020-09-24] MEDS: BUMETANIDE 1 MG TABLET PO SCH (17:12)
--- NOTE | 2020-09-24 19:40 | NUR ---
PATIENT AWAKE NO SOB NO CHEST PAIN, ON OXYGEN 3LPM SAT WNL. PATIENT CLAIM TO BE SHORT BREATH BUT OXYGEN 96=97% AT 3 LPM. NOTIFY RT FOR HHN TX REQUESTED, PATIENT ON TELE MONITOR SINUS RHYTHM VS/ WNL CONT TO MONITOR.
[2020-09-24 20:00] VITALS: BP 133/54
[2020-09-24] MEDS: ATORVASTATIN 40 MG TABLET PO SCH (21:00)
[2020-09-24] MEDS: TRAZODONE 100 MG TABLET PO SCH (21:00)
[2020-09-24] MEDS: ZOLPIDEM 5 MG TABLET PO PRN (21:28)
[2020-09-25] VITALS: BP 136/46
[2020-09-25] MEDS: OXYCODONE/APAP 5-325 MG TABLET PO PRN (00:07)
[2020-09-25 04:00] VITALS: BP 102/61
--- NOTE | 2020-09-25 05:58 | NUR ---
PATIENT ALERT BUT FORGETFUL NO SOB NO CHEST PAIN, ON 3LPM NC SAT WNL, REQUEST FOR BREATHING TREATMENT, CLAIM SHE SHORT OF BREATH, BUT OXYGEN SAT WNL, RT GIVEN HHN TX ORDERED. PATIENT WAS GIVEN PAIN MEDICATION FOR PAIN AND COMFORT. CONT TO MONITOR.
[2020-09-25] MEDS: IPRATROPIUM BROMIDE 0.5 MG/2.5 ML NEBU NEB PRN ×2 (06:06→18:11)
[2020-09-25] MEDS: ALBUTEROL SULFATE 2.5 MG/3 ML NEBU NEB PRN ×2 (06:06→18:11)
[2020-09-25] MEDS: LEVOTHYROXINE SODIUM 50 MCG TABLET PO SCH (06:31)
[2020-09-25] MEDS: PANTOPRAZOLE SODIUM 40 MG TABLET.DR PO SCH (06:32)
--- NOTE | 2020-09-25 08:00 | NUR ---
AWAKE ALERT AND VERBALLY RESPONSIVE, ABLE TO VERBALIZES NEEDS WELL WITH O2 AT 3L NC SATURATING 97 %. MSR ON MONITOR
[2020-09-25] MEDS: ASPIRIN EC 81 MG TABLET.DR PO SCH (09:06)
[2020-09-25] MEDS: BUMETANIDE 1 MG TABLET PO SCH ×2 (09:06→16:35)
[2020-09-25] MEDS: DOCUSATE SODIUM 100 MG CAPSULE PO SCH (09:06)
[2020-09-25] MEDS: MIRALAX 17 GM POWD.PACK PO SCH (09:06)
[2020-09-25] MEDS: EZETIMIBE 10 MG TABLET PO SCH (09:06)
[2020-09-25] MEDS: AMIODARONE HCL 200 MG TABLET PO SCH (09:07)
[2020-09-25] MEDS: LOSARTAN POTASSIUM 25 MG TABLET PO SCH (09:07)
[2020-09-25] MEDS: METOPROLOL SUCCINATE XL 25 MG TAB.SR.24H PO SCH (09:08)
[2020-09-25] MEDS: GLUCERNA SHAKE VANILLA 237 ML CAN PO SCH ×2 (09:08→16:37)
[2020-09-25] MEDS: CLOTRIMAZOLE 1% CREAM 30 GM TUBE TOP SCH ×2 (09:09→16:37)
[2020-09-25] MEDS: FARXIGA 10MG TABLET PO SCH (09:10)
[2020-09-25 12:00] VITALS: BP 130/53
--- NOTE | 2020-09-25 12:00 | NUR ---
SEEN BY PHYSICAL THERAPY AND OT FOR THERAPEUTIC EXERCISES SEE NOTES
[2020-09-25 16:00] VITALS: BP 129/60
--- NOTE | 2020-09-25 17:45 | NUR ---
SEEN BY DR DURANT FOR dr santamaria, patient will be discharged to ARU FOR PT, OT
== END 2020-09-25 19:00 | DRG 291 ==
LOC: TELE3 13:53 → MEDSURG3 09-25 16:48
PROVIDERS: ADMIT Internal Medicine; ATTEND Internal Medicine Nephrology
DX: I13.0 Hypertensive heart and chronic kidney disease with heart failure and stage 1 through stage 4 chronic kidney disease, or unspecified chronic kidney disease (principal); J96.01 Acute respiratory failure with hypoxia; I50.43 Acute on chronic combined systolic (congestive) and diastolic (congestive) heart failure; N17.9 Acute kidney failure, unspecified; N18.9 Chronic kidney disease, unspecified; I27.20 Pulmonary hypertension, unspecified; I25.5 Ischemic cardiomyopathy; E11.22 Type 2 diabetes mellitus with diabetic chronic kidney disease; E03.9 Hypothyroidism, unspecified; D64.9 Anemia, unspecified; E78.5 Hyperlipidemia, unspecified; I25.10 Atherosclerotic heart disease of native coronary artery without angina pectoris; J44.9 Chronic obstructive pulmonary disease, unspecified; Z88.0 Allergy status to penicillin; Z86.73 Personal history of transient ischemic attack (TIA), and cerebral infarction without residual deficits; Z85.3 Personal history of malignant neoplasm of breast; I48.0 Paroxysmal atrial fibrillation; I25.2 Old myocardial infarction; I51.3 Intracardiac thrombosis, not elsewhere classified
CPT/HCPCS: 36415; 83735; 84100; 85025; 94640; 97161; C1758; G0378; J1940; J3590

== ENCOUNTER 2020-09-25 15:14 | Inpatient (IN) | payer MEDICARE, BC ==
[~2020-09-25] VITALS: Ht 154.9 cm; Wt 73.0 kg
[2020-09-25] MEDS ORDERED: Z GUARD REMEDY PASTE 57 GM TUBE TOP PRN (19:45)
[2020-09-25 20:24] VITALS: BP 131/56
[2020-09-25] MEDS ORDERED: DEXTROSE 50% 50 ML DISP.SYRIN IV PRN (20:30)
[2020-09-25] MEDS ORDERED: Medication Not On Formulary EA (Atorvastatin Calcium (Lipitor) 80 MG) PO SCH (21:00)
[2020-09-25] MEDS: ATORVASTATIN 40 MG TABLET PO SCH (21:11)
[2020-09-25] MEDS: HYDROCODONE/APAP 5-325MG TABLET PO PRN (21:11)
[2020-09-25] MEDS: BLOOD SUGAR DIAGNOSTIC 1 EACH STRIP VI SCH (21:16)
[2020-09-25] MEDS: INSULIN REGULAR, HUMAN 300 UNITS/3 ML VIAL SQ PRN (21:24)
[2020-09-25] MEDS: MELATONIN 3 MG TABLET PO SCH (21:41)
--- NOTE | 2020-09-26 03:07 | NUR ---
Admitted a 80 yr old female from [facility] with admitting diagnosis of CHF. Hx of hypothyroid, CVA with left side weakness, CHF, DM, Breast Ca, Pneumonia and COPD. AAOx3-4 with periods of forgetfulness at times. VSS. On 3L via nasal cannula, pulse ox 95%. BP 131/56 HR 73 Resp 18 Temp 98.3 Patient incontinent of bowel and bladder. Kept clean and dry. No BM noted this shift. Skin intact, with some redness on the sacral area. Zguard applied as ordered. On accucheck 151 with coverage given. Medicated with [place] for pain in her back/knees 8/10 scale. All needs attended. Will monitor patient.
[2020-09-26 04:24] VITALS: BP 133/49
[2020-09-26] MEDS: PANTOPRAZOLE SODIUM 40 MG TABLET.DR PO SCH (06:08)
[2020-09-26] MEDS: BLOOD SUGAR DIAGNOSTIC 1 EACH STRIP VI SCH ×4 (06:33→20:38)
[2020-09-26 08:00] VITALS: BP 126/46
[2020-09-26] MEDS: ASPIRIN EC 81 MG TABLET.DR PO SCH (09:18)
[2020-09-26] MEDS: FARXIGA 10 MG PO SCH (09:18)
[2020-09-26] MEDS: FUROSEMIDE 40 MG TABLET PO SCH ×2 (09:18→18:12)
[2020-09-26] MEDS: EZETIMIBE 10 MG TABLET PO SCH (09:18)
[2020-09-26] MEDS: MIRALAX 17 GM POWD.PACK PO SCH (09:19)
[2020-09-26] MEDS: LORATADINE 10 MG TABLET PO SCH (09:19)
[2020-09-26] MEDS: LEVOTHYROXINE SODIUM 50 MCG TABLET PO SCH (09:19)
[2020-09-26] MEDS: DOCUSATE SODIUM 100 MG CAPSULE PO SCH (09:20)
[2020-09-26] MEDS: METOPROLOL SUCCINATE XL 25 MG TAB.SR.24H PO SCH (09:26)
[2020-09-26] MEDS: MIDODRINE HCL 2.5 MG TABLET PO SCH ×2 (09:27→18:24)
[2020-09-26] MEDS: AMIODARONE HCL 200 MG TABLET PO SCH (09:27)
--- NOTE | 2020-09-26 11:30 | NUR ---
Received an order from Dr. Albert for PRN breathing treatment. See order history. Patient remains alert, oriented x 3, not in any form of distress, on 3LPM via NC saturation of 96%. No complain of any discomfort at this time.
[2020-09-26] MEDS: INSULIN REGULAR, HUMAN 300 UNIT/3 ML VIAL SQ PRN (12:29)
[2020-09-26] MEDS: ALBUTEROL SULFATE 2.5 MG/3 ML NEBU NEB PRN ×3 (12:51→20:27)
[2020-09-26] MEDS: IPRATROPIUM BROMIDE 0.5 MG/2.5 ML NEBU NEB PRN ×3 (12:52→20:27)
--- NOTE | 2020-09-26 13:50 | NUR ---
SW Note: This SW requested psych consult and independent living specialist consult through [facility]. Patient expressed that she was depressed and pt presented tearful while this SW was conducting assessment.
--- NOTE | 2020-09-26 13:54 | NUR ---
SW Family Contact: This SW spoke with patient's son Herb ([phone]) and discussed discharge planning. Son stated that he has a 24 hour caregiver at home and he has caregivers who rotate. Son asked this SW to help with IHSS. This SW provided IHSS website and phone number and explained the process. This SW provided additional caregiving resources if needed: [facility]; ([phone]), [facility]; ([phone]), [facility]; ([phone]).
[2020-09-26 15:13] VITALS: BP 106/42
[2020-09-26] MEDS: HYDROCODONE/APAP 5-325MG TABLET PO PRN ×2 (16:00→22:08)
--- NOTE | 2020-09-26 16:00 | NUR ---
Patient seen by Dr. Soler and ordered psych consult for depression. Called Dr. Dorothea Smith MD made aware of consult and MD said OK. Face sheet faxed to [facility] and charge nurse made aware.
[2020-09-26 20:06] VITALS: BP 125/44
[2020-09-26] MEDS: ATORVASTATIN 40 MG TABLET PO SCH (20:29)
[2020-09-26] MEDS: MELATONIN 3 MG TABLET PO SCH (20:30)
[2020-09-26] MEDS: INSULIN REGULAR, HUMAN 300 UNITS/3 ML VIAL SQ PRN (20:41)
[2020-09-27] MEDS: ACETAMINOPHEN 325 MG TABLET PO PRN (00:57)
[2020-09-27 04:06] VITALS: BP 123/37
--- NOTE | 2020-09-27 04:07 | NUR ---
AAOx3-4 forgetful at times. VSS. Needs attended. No acute distress noted. All needs attended. Kept comfortable. Will monitor patient. Medicated with [place] for pain with slight noted. Incontinent of bowel and bladder. No BM noted this shift. Kept clean and dry. On 3L via nasal cannula, pulse ox 98%. Kept comfortable. Siderails up for safety.
[2020-09-27 06:14] LABS: HEMATOCRIT 29.9 % (31.2-41.9); PLATELET COUNT (AUTO) 269 K/uL (179-408)
[2020-09-27] MEDS: PANTOPRAZOLE SODIUM 40 MG TABLET.DR PO SCH (06:17)
[2020-09-27 06:18] LABS: CARBON DIOXIDE 38 mmol/L (21-32); CHLORIDE 99 mmol/L (98-107); CREATININE 1.5 mg/dL (0.6-1.3); GLUCOSE 117 mg/dL (74-106); MAGNESIUM 2.2 mg/dL (1.8-2.4); PHOSPHOROUS 4.2 mg/dL (2.5-4.9); POTASSIUM 3.3 mmol/L (3.5-5.1); UREA NITROGEN, BLOOD 36 mg/dL (7-18)
[2020-09-27] MEDS: ALBUTEROL SULFATE 2.5 MG/3 ML NEBU NEB PRN ×3 (06:26→20:34)
[2020-09-27] MEDS: IPRATROPIUM BROMIDE 0.5 MG/2.5 ML NEBU NEB PRN ×3 (06:26→20:33)
[2020-09-27] MEDS: BLOOD SUGAR DIAGNOSTIC 1 EACH STRIP VI SCH ×4 (06:35→20:26)
[2020-09-27 08:00] VITALS: BP 135/55
[2020-09-27] MEDS: DOCUSATE SODIUM 100 MG CAPSULE PO SCH (08:39)
[2020-09-27] MEDS: LORATADINE 10 MG TABLET PO SCH (08:40)
[2020-09-27] MEDS: ASPIRIN EC 81 MG TABLET.DR PO SCH (08:40)
[2020-09-27] MEDS: EZETIMIBE 10 MG TABLET PO SCH (08:40)
[2020-09-27] MEDS: FARXIGA 10 MG PO SCH (08:41)
[2020-09-27] MEDS: MIRALAX 17 GM POWD.PACK PO SCH (08:41)
[2020-09-27] MEDS: MIDODRINE HCL 2.5 MG TABLET PO SCH ×2 (08:41→17:35)
[2020-09-27] MEDS: LEVOTHYROXINE SODIUM 50 MCG TABLET PO SCH (08:42)
[2020-09-27] MEDS: AMIODARONE HCL 200 MG TABLET PO SCH (08:42)
[2020-09-27] MEDS: FUROSEMIDE 40 MG TABLET PO SCH ×2 (08:42→17:35)
[2020-09-27] MEDS: METOPROLOL SUCCINATE XL 25 MG TAB.SR.24H PO SCH (08:43)
[2020-09-27] MEDS ORDERED: POTASSIUM CHLORIDE 10 MEQ TAB.PRT.SR PO ONE (09:45)
--- NOTE | 2020-09-27 10:17 | NUR ---
INTERDISCIPLINARY TEAM CONFERENCE
[2020-09-27] MEDS: HYDROCODONE/APAP 5-325MG TABLET PO PRN ×2 (13:12→18:52)
[2020-09-27 15:10] VITALS: BP 117/45
[2020-09-27 20:10] VITALS: BP 150/51
[2020-09-27] MEDS: ATORVASTATIN 40 MG TABLET PO SCH (20:21)
[2020-09-27] MEDS: MELATONIN 3 MG TABLET PO SCH (20:21)
[2020-09-27] MEDS: INSULIN REGULAR, HUMAN 300 UNITS/3 ML VIAL SQ PRN (20:31)
--- NOTE | 2020-09-27 21:30 | NUR ---
Received pt awake on bed upon initial rounds. Alert and oriented x-4, forgetful, able to make needs known. Assisted in turning and repositioning. All due meds given and tolerated well. Call light placed within reach and encouraged to use for assistance. Will continue to monitor.
[2020-09-27] MEDS: TRAZODONE 50 MG TABLET PO SCH (22:29)
[2020-09-28] MEDS: IPRATROPIUM BROMIDE 0.5 MG/2.5 ML NEBU NEB PRN ×2 (02:01→19:15)
[2020-09-28] MEDS: ALBUTEROL SULFATE 2.5 MG/3 ML NEBU NEB PRN ×2 (02:02→19:15)
[2020-09-28 04:15] VITALS: BP 122/45
[2020-09-28] MEDS: PANTOPRAZOLE SODIUM 40 MG TABLET.DR PO SCH (06:05)
--- NOTE | 2020-09-28 06:25 | NUR ---
Psych consult done by Dr. Smith with new order of Trazodone 50mg PO QHS. Patient slept throughout the night. On continuous O2 at 3 lpm via NC, no respiratory distress noted. Midline on DANNY remains patent and intact. Denies pain and discomfort at this time. Kept clean, dry, and comfortable. All needs attended. Call light placed within reach. Frequent visual checks done. Will endorse to next shift for continuity of care.
[2020-09-28] MEDS: BLOOD SUGAR DIAGNOSTIC 1 EACH STRIP VI SCH ×4 (06:44→20:18)
[2020-09-28 07:43] VITALS: BP 137/47
[2020-09-28 08:00] VITALS: BP 137/47
[2020-09-28] MEDS: AMIODARONE HCL 200 MG TABLET PO SCH (08:57)
[2020-09-28] MEDS: ASPIRIN EC 81 MG TABLET.DR PO SCH (08:57)
[2020-09-28] MEDS: DOCUSATE SODIUM 100 MG CAPSULE PO SCH (08:57)
[2020-09-28] MEDS: LEVOTHYROXINE SODIUM 50 MCG TABLET PO SCH (08:58)
[2020-09-28] MEDS: FUROSEMIDE 40 MG TABLET PO SCH ×2 (08:58→16:27)
[2020-09-28] MEDS: FARXIGA 10 MG PO SCH (08:58)
[2020-09-28] MEDS: LORATADINE 10 MG TABLET PO SCH (08:58)
[2020-09-28] MEDS: MIDODRINE HCL 2.5 MG TABLET PO SCH ×2 (08:58→16:28)
[2020-09-28] MEDS: METOPROLOL SUCCINATE XL 25 MG TAB.SR.24H PO SCH (08:58)
[2020-09-28] MEDS: EZETIMIBE 10 MG TABLET PO SCH (08:58)
[2020-09-28] MEDS: MIRALAX 17 GM POWD.PACK PO SCH (08:59)
[2020-09-28] MEDS: ACETAMINOPHEN 325 MG TABLET PO PRN ×2 (09:13→14:00)
[2020-09-28] MEDS: MUPIROCIN 2% OINT 22 GM TUBE NS SCH ×2 (09:18→20:11)
--- NOTE | 2020-09-28 10:21 | NUR ---
INDIVIDUALIZED PLAN OF CARE
[2020-09-28] MEDS: INSULIN REGULAR, HUMAN 300 UNIT/3 ML VIAL SQ PRN (11:28)
[2020-09-28 15:21] VITALS: BP 121/42
[2020-09-28 15:30] VITALS: BP 121/42
--- NOTE | 2020-09-28 18:47 | NUR ---
Dr. Albert in the unit. Update given to MD and informed him that patient haven't had BM for 3 days now. Per MD he will check and put in order. Patient remains alert, oriented x 3, not in any form of distress, on oxygen at 1LPM via NC O2 sat 97%. She denies any pain or discomfort at this time. Patient kept clean and comfortable, turned and repositioned Q 2 hours. Patient participated with therapy and tolerated well. Will continue to monitor and will endorse accordingly.
[2020-09-28] MEDS: ATORVASTATIN 40 MG TABLET PO SCH (20:10)
[2020-09-28] MEDS: TRAZODONE 50 MG TABLET PO SCH (20:10)
[2020-09-28] MEDS: MELATONIN 3 MG TABLET PO SCH (20:10)
[2020-09-28 20:19] VITALS: BP 123/44
[2020-09-28] MEDS: HYDROCODONE/APAP 5-325MG TABLET PO PRN (20:22)
[2020-09-28] MEDS: INSULIN REGULAR, HUMAN 300 UNITS/3 ML VIAL SQ PRN (20:26)
--- NOTE | 2020-09-28 21:30 | NUR ---
Received pt awake on bed upon initial rounds. Alert and oriented x4, forgetful, able to make needs known. Assisted in turning and repositioning. On continuous O2 at 1lpm via NC. Requested for breathing tx, RT informed. All due meds given and tolerated well. Call light placed within reach and encouraged to use for assistance. Will continue to monitor.
[2020-09-28] MEDS ORDERED: BISACODYL 5 MG TABLET.DR PO PRN (22:15)
[2020-09-29] MEDS: ACETAMINOPHEN 325 MG TABLET PO PRN ×4 (00:13→17:33)
[2020-09-29 04:42] VITALS: BP 132/49
[2020-09-29] MEDS: PANTOPRAZOLE SODIUM 40 MG TABLET.DR PO SCH (06:02)
--- NOTE | 2020-09-29 06:23 | NUR ---
Patient slept throughout the night. On continuous O2 at 1 lpm via NC, no respiratory distress noted. Midline on DANNY remains patent and intact. Denies pain and discomfort at this time. Medicated pain x2, noted effective. Breathing treatment given by RT. Kept clean, dry, and comfortable. All needs attended. Call light placed within reach. Frequent visual checks done. Will endorse to next shift for continuity of care.
[2020-09-29] MEDS: BLOOD SUGAR DIAGNOSTIC 1 EACH STRIP VI SCH ×4 (06:38→20:39)
[2020-09-29 08:00] VITALS: BP 148/57
[2020-09-29] MEDS: ALBUTEROL SULFATE 2.5 MG/3 ML NEBU NEB PRN ×3 (08:26→19:34)
[2020-09-29] MEDS: IPRATROPIUM BROMIDE 0.5 MG/2.5 ML NEBU NEB PRN ×3 (08:26→19:34)
[2020-09-29] MEDS: LORATADINE 10 MG TABLET PO SCH (09:45)
[2020-09-29] MEDS: MIRALAX 17 GM POWD.PACK PO SCH (09:45)
[2020-09-29] MEDS: ASPIRIN EC 81 MG TABLET.DR PO SCH (09:45)
[2020-09-29] MEDS: DOCUSATE SODIUM 100 MG CAPSULE PO SCH (09:45)
[2020-09-29] MEDS: FUROSEMIDE 40 MG TABLET PO SCH ×2 (09:46→16:42)
[2020-09-29] MEDS: AMIODARONE HCL 200 MG TABLET PO SCH (09:46)
[2020-09-29] MEDS: LISINOPRIL 5 MG TABLET PO SCH (09:46)
[2020-09-29] MEDS: MIDODRINE HCL 2.5 MG TABLET PO SCH ×2 (09:46→16:43)
[2020-09-29] MEDS: METOPROLOL SUCCINATE XL 25 MG TAB.SR.24H PO SCH (09:46)
[2020-09-29] MEDS: LEVOTHYROXINE SODIUM 50 MCG TABLET PO SCH (09:46)
[2020-09-29] MEDS: EZETIMIBE 10 MG TABLET PO SCH (09:46)
[2020-09-29] MEDS: FARXIGA 10 MG PO SCH (09:47)
[2020-09-29] MEDS: MUPIROCIN 2% OINT 22 GM TUBE NS SCH ×2 (09:48→20:28)
[2020-09-29] MEDS: INSULIN REGULAR, HUMAN 300 UNIT/3 ML VIAL SQ PRN ×2 (12:03→20:48)
[2020-09-29] MEDS: HYDROCODONE/APAP 5-325MG TABLET PO PRN ×2 (13:43→21:12)
--- NOTE | 2020-09-29 15:53 | NUR ---
Patient seen by Dr. Soler and gave new orders. See order history.
[2020-09-29 16:00] VITALS: BP 103/36
[2020-09-29] MEDS ORDERED: diphenhydrAMINE 25 MG CAP PO PRN (16:00)
[2020-09-29 20:00] VITALS: BP 104/37
[2020-09-29] MEDS: MELATONIN 3 MG TABLET PO SCH (20:28)
[2020-09-29] MEDS: ATORVASTATIN 40 MG TABLET PO SCH (20:28)
[2020-09-29] MEDS: TRAZODONE 50 MG TABLET PO SCH (20:28)
[2020-09-29] MEDS: INSULIN REGULAR, HUMAN 300 UNITS/3 ML VIAL SQ PRN (20:50)
--- NOTE | 2020-09-29 21:24 | NUR ---
Received pt awake on bed upon initial rounds. Alert and oriented x4, forgetful, able to make needs known. Assisted in turning and repositioning. Requested for breathing tx, RT informed. On room air saturating at 95%. All due meds given and tolerated well. Call light placed within reach and encouraged to use for assistance. Will continue to monitor.
[2020-09-30 04:00] VITALS: BP 140/49
[2020-09-30] MEDS: PANTOPRAZOLE SODIUM 40 MG TABLET.DR PO SCH (06:09)
--- NOTE | 2020-09-30 06:30 | NUR ---
Patient slept intermittently throughout the night. Easily arousable for care, forgetful, able to make needs known. Assisted in turning and repositioning. On room air saturating at 96%. All due meds given and tolerated well. Call light placed within reach and encouraged to use for assistance. Will continue to monitor.
[2020-09-30] MEDS: BLOOD SUGAR DIAGNOSTIC 1 EACH STRIP VI SCH ×4 (06:56→20:33)
[2020-09-30 08:00] VITALS: BP 158/66
[2020-09-30] MEDS: EZETIMIBE 10 MG TABLET PO SCH (08:58)
[2020-09-30] MEDS: ASPIRIN EC 81 MG TABLET.DR PO SCH (08:58)
[2020-09-30] MEDS: FUROSEMIDE 40 MG TABLET PO SCH ×2 (08:58→17:29)
[2020-09-30] MEDS: LEVOTHYROXINE SODIUM 50 MCG TABLET PO SCH (08:58)
[2020-09-30] MEDS: DOCUSATE SODIUM 100 MG CAPSULE PO SCH (08:58)
[2020-09-30] MEDS: LORATADINE 10 MG TABLET PO SCH (08:59)
[2020-09-30] MEDS: AMIODARONE HCL 200 MG TABLET PO SCH (08:59)
[2020-09-30] MEDS: FARXIGA 10 MG PO SCH (09:00)
[2020-09-30] MEDS: MIDODRINE HCL 2.5 MG TABLET PO SCH ×2 (09:00→17:00)
[2020-09-30] MEDS: MIRALAX 17 GM POWD.PACK PO SCH (09:00)
[2020-09-30] MEDS: METOPROLOL SUCCINATE XL 25 MG TAB.SR.24H PO SCH (09:13)
[2020-09-30] MEDS: LISINOPRIL 5 MG TABLET PO SCH (09:13)
[2020-09-30] MEDS: ALBUTEROL SULFATE 2.5 MG/3 ML NEBU NEB PRN ×3 (09:14→19:29)
[2020-09-30] MEDS: IPRATROPIUM BROMIDE 0.5 MG/2.5 ML NEBU NEB PRN ×3 (09:14→19:29)
[2020-09-30] MEDS: MUPIROCIN 2% OINT 22 GM TUBE NS SCH ×2 (09:14→20:40)
[2020-09-30] MEDS: HYDROCODONE/APAP 5-325MG TABLET PO PRN ×2 (11:04→21:34)
[2020-09-30 16:00] VITALS: BP 123/44
[2020-09-30] MEDS: INSULIN REGULAR, HUMAN 300 UNIT/3 ML VIAL SQ PRN (17:39)
--- NOTE | 2020-09-30 18:17 | NUR ---
Patient verbalized feeling depress, dr curry made aware. with new order to start on zoloft 50mg daily, order noted, patient denied any suicidal thoughts, denied any plan to harm herself, continue to monitor.
[2020-09-30] MEDS: TRAZODONE 50 MG TABLET PO SCH (20:32)
[2020-09-30] MEDS: ATORVASTATIN 40 MG TABLET PO SCH (20:32)
[2020-09-30] MEDS: MELATONIN 3 MG TABLET PO SCH (20:32)
[2020-09-30] MEDS: INSULIN REGULAR, HUMAN 300 UNITS/3 ML VIAL SQ PRN (20:40)
[2020-09-30 20:42] VITALS: BP 125/46
--- NOTE | 2020-09-30 21:28 | NUR ---
Received pt resting in bed. AAO x4, forgetful at times. Pt uses O2 on and off, from room air to 2L O2 via NC. No acute distress noted. Denies pain/ discomfort at this time. Denies SI. Turned and repositioned. Both heels and elbows offloaded. Due meds given as ordered. Safety measures maintained. Call light within reach. Will continue to monitor.
[2020-10-01 04:42] VITALS: BP 106/42
[2020-10-01] MEDS: PANTOPRAZOLE SODIUM 40 MG TABLET.DR PO SCH (06:17)
[2020-10-01] MEDS: BLOOD SUGAR DIAGNOSTIC 1 EACH STRIP VI SCH ×4 (06:32→21:07)
--- NOTE | 2020-10-01 06:42 | NUR ---
Warm prune juice given to help with constipation.
[2020-10-01 07:30] VITALS: BP 122/50
--- NOTE | 2020-10-01 08:00 | NUR ---
PATIENT IS AWAKE ALERT AND ORIENTED MAKES NEEDS KNOWN NO S/S OF HYPO/HYPERGLYCEMIC REACTIONS AT THIS TIME ON FIRST STEP JULIAN TURNED AND REPOSITIONED Q2H ON O2 AT 1-1.5 L/H WITH NO SOB AT THIS TIME CALL LIGHTS AND PERSONAL BELONGINGS ARE WITHIN EASY REACH WILL CONTINUE TO OBSERVE.
[2020-10-01] MEDS: MIDODRINE HCL 2.5 MG TABLET PO SCH (09:00)
[2020-10-01] MEDS: DOCUSATE SODIUM 100 MG CAPSULE PO SCH (09:32)
[2020-10-01] MEDS: EZETIMIBE 10 MG TABLET PO SCH (09:32)
[2020-10-01] MEDS: FUROSEMIDE 40 MG TABLET PO SCH ×2 (09:32→17:42)
[2020-10-01] MEDS: SERTRALINE HCL 50 MG TABLET PO SCH (09:32)
[2020-10-01] MEDS: LEVOTHYROXINE SODIUM 50 MCG TABLET PO SCH (09:33)
[2020-10-01] MEDS: LORATADINE 10 MG TABLET PO SCH (09:33)
[2020-10-01] MEDS: ASPIRIN EC 81 MG TABLET.DR PO SCH (09:33)
[2020-10-01] MEDS: MIRALAX 17 GM POWD.PACK PO SCH (09:35)
[2020-10-01] MEDS: FARXIGA 10 MG PO SCH (09:35)
[2020-10-01] MEDS: AMIODARONE HCL 200 MG TABLET PO SCH (09:36)
[2020-10-01] MEDS: LISINOPRIL 5 MG TABLET PO SCH (09:37)
[2020-10-01] MEDS: METOPROLOL SUCCINATE XL 25 MG TAB.SR.24H PO SCH (09:37)
[2020-10-01] MEDS: MUPIROCIN 2% OINT 22 GM TUBE NS SCH ×2 (09:44→21:13)
[2020-10-01] MEDS: INSULIN REGULAR, HUMAN 300 UNIT/3 ML VIAL SQ PRN (12:11)
[2020-10-01] MEDS: ACETAMINOPHEN 325 MG TABLET PO PRN (14:46)
--- NOTE | 2020-10-01 14:46 | NUR ---
C/O HAS GENERALISED PAIN MEDICATED WITH TYLENOL ORDERED PATIENT IS UP ON THE CHAIR BEING WHEELED TO THE [facility] FOR THERAPY.WILL CONTINUE TO OBSERVE
[2020-10-01 15:09] VITALS: BP 125/59
--- NOTE | 2020-10-01 18:00 | NUR ---
PATIENT HAD 2 BOWEL MOVEMENT INCONTINENT LOOSE DANIEL CARE GIVEN MIDLINE REMAINS INTACT BLOOD SUGAR IS 99 BEFORE DINNER MADE COMFORTABLE WILL CONTINUE TO OBSERVE.
[2020-10-01 20:21] VITALS: BP 130/47
[2020-10-01] MEDS: TRAZODONE 50 MG TABLET PO SCH (21:02)
[2020-10-01] MEDS: HYDROCODONE/APAP 5-325MG TABLET PO PRN (21:02)
[2020-10-01] MEDS: ATORVASTATIN 40 MG TABLET PO SCH (21:02)
[2020-10-01] MEDS: MELATONIN 3 MG TABLET PO SCH (21:07)
[2020-10-02] MEDS: ACETAMINOPHEN 325 MG TABLET PO PRN ×2 (01:42→06:12)
[2020-10-02 04:24] VITALS: BP 113/44
--- NOTE | 2020-10-02 05:56 | NUR ---
Pt asleep at this time. No change in LOC. VS WNL. HS BG 128, no coverage indicated. Manifested relief of pain after interventions. Due meds given. Needs attended to. Kept clean, dry and comfortable. Frequent checks done to ensure safety. Safety precautions in place. Will endorse accordingly.
[2020-10-02] MEDS: PANTOPRAZOLE SODIUM 40 MG TABLET.DR PO SCH (06:12)
[2020-10-02] MEDS: BLOOD SUGAR DIAGNOSTIC 1 EACH STRIP VI SCH ×2 (06:21→11:23)
[2020-10-02 06:47] LABS: CARBON DIOXIDE 35 mmol/L (21-32); CHLORIDE 103 mmol/L (98-107); CREATININE 1.5 mg/dL (0.6-1.3); GLUCOSE 115 mg/dL (74-106); POTASSIUM 3.5 mmol/L (3.5-5.1); UREA NITROGEN, BLOOD 38 mg/dL (7-18)
[2020-10-02 07:30] VITALS: BP 110/41
--- NOTE | 2020-10-02 08:00 | NUR ---
received patient awake. a/o, able to make needs known. Denies discomfort. For d/c today. Will continue to monitor.
[2020-10-02] MEDS ORDERED: POTASSIUM CHLORIDE 20 MEQ POWDER PACKET PO ONE (08:15)
[2020-10-02] MEDS: LORATADINE 10 MG TABLET PO SCH (09:13)
[2020-10-02] MEDS: DOCUSATE SODIUM 100 MG CAPSULE PO SCH (09:13)
[2020-10-02] MEDS: SERTRALINE HCL 50 MG TABLET PO SCH (09:13)
[2020-10-02] MEDS: ASPIRIN EC 81 MG TABLET.DR PO SCH (09:13)
[2020-10-02] MEDS: LEVOTHYROXINE SODIUM 50 MCG TABLET PO SCH (09:13)
[2020-10-02] MEDS: EZETIMIBE 10 MG TABLET PO SCH (09:16)
[2020-10-02] MEDS: FARXIGA 10 MG PO SCH (09:16)
[2020-10-02] MEDS: MIRALAX 17 GM POWD.PACK PO SCH (09:16)
[2020-10-02] MEDS: FUROSEMIDE 40 MG TABLET PO SCH (09:16)
[2020-10-02] MEDS: AMIODARONE HCL 200 MG TABLET PO SCH (09:18)
[2020-10-02 09:22] VITALS: BP 122/82
[2020-10-02] MEDS: METOPROLOL SUCCINATE XL 25 MG TAB.SR.24H PO SCH (09:22)
[2020-10-02] MEDS: LISINOPRIL 5 MG TABLET PO SCH (09:22)
[2020-10-02] MEDS: MUPIROCIN 2% OINT 22 GM TUBE NS SCH (09:28)
[2020-10-02] MEDS: INSULIN REGULAR, HUMAN 300 UNIT/3 ML VIAL SQ PRN (11:27)
[2020-10-02] MEDS: IPRATROPIUM BROMIDE 0.5 MG/2.5 ML NEBU NEB PRN (14:00)
[2020-10-02] MEDS: ALBUTEROL SULFATE 2.5 MG/3 ML NEBU NEB PRN (14:01)
--- NOTE | 2020-10-02 15:55 | NUR ---
Patient is discharge to home with home health via ambulance on a gurney with 2 segregator. Reggie Estevez was at bedside. Skin intact, photo of sacral area in the chart. Belongings signed, discharge instructions given and signed. Carried out MD orders, faxed to the pharmacy. No distress identified. Denies pain. Patient is thankful for the care.
== END 2020-10-02 15:55 | disposition home health service (06) | DRG 280 ==
PROVIDERS: ADMIT Physical Medicine & Rehabilitation Pain Medicine; ATTEND Physical Medicine & Rehabilitation Pain Medicine
DX: I13.0 Hypertensive heart and chronic kidney disease with heart failure and stage 1 through stage 4 chronic kidney disease, or unspecified chronic kidney disease (principal); J96.01 Acute respiratory failure with hypoxia; I21.4 Non-ST elevation (NSTEMI) myocardial infarction; I50.23 Acute on chronic systolic (congestive) heart failure; N17.9 Acute kidney failure, unspecified; I69.351 Hemiplegia and hemiparesis following cerebral infarction affecting right dominant side; I25.10 Atherosclerotic heart disease of native coronary artery without angina pectoris; E11.22 Type 2 diabetes mellitus with diabetic chronic kidney disease; E03.9 Hypothyroidism, unspecified; E78.5 Hyperlipidemia, unspecified; F32.9 Major depressive disorder, single episode, unspecified; I25.2 Old myocardial infarction; I25.5 Ischemic cardiomyopathy; I27.20 Pulmonary hypertension, unspecified; I48.0 Paroxysmal atrial fibrillation; J44.9 Chronic obstructive pulmonary disease, unspecified; Z85.3 Personal history of malignant neoplasm of breast; N18.9 Chronic kidney disease, unspecified; Z74.01 Bed confinement status; Z88.0 Allergy status to penicillin; H53.9 Unspecified visual disturbance; Z79.899 Other long term (current) drug therapy; D64.9 Anemia, unspecified; I51.3 Intracardiac thrombosis, not elsewhere classified; M17.10 Unilateral primary osteoarthritis, unspecified knee; G47.9 Sleep disorder, unspecified
CPT/HCPCS: 36415; 71045; 83735; 84100; 85025; 94640; 97161; A6209; J1815; J3590; Q0163

== ENCOUNTER 2021-03-07 16:15 | Inpatient (IN) | payer MEDICARE, BC ==
[~2021-03-07] VITALS: Ht 152.4 cm; Wt 59.0 kg
[2021-03-07] MEDS ORDERED: BISA10SU95 RC (16:48)
[2021-03-07] MEDS ORDERED: TRAZ-182 PO (16:48)
[2021-03-07] MEDS ORDERED: ONDA-104 PO (16:48)
[2021-03-07] MEDS ORDERED: LISI-782 PO (16:48)
[2021-03-07] MEDS ORDERED: SERT50TA PO (16:48)
[2021-03-07] MEDS ORDERED: TYLENOL PM PO (16:48)
[2021-03-07] MEDS ORDERED: TYLENOL #3 PO (16:48)
[2021-03-07] MEDS ORDERED: ACET-2605 PO (16:48)
[2021-03-07] MEDS ORDERED: SULF1TAB48 PO (16:49)
--- NOTE | 2021-03-07 17:03 | NUR ---
PT IS IN ROOM #1B. DR CASTILLO EVALUATED THE PT.
[2021-03-07 17:51] LABS: HEMATOCRIT 28.1 % (31.2-41.9); MEAN CORPUSCULAR HEMOGLOBIN 32.4 uug (24.7-32.8); MEAN CORPUSCULAR VOLUME 97.2 fL (75.5-95.3); PLATELET COUNT (AUTO) 248 K/uL (179-408)
[2021-03-07 17:56] LABS: CARBON DIOXIDE 22 mmol/L (21-32); CHLORIDE 102 mmol/L (98-107); CREATININE 2.4 mg/dL (0.6-1.3); GLUCOSE 95 mg/dL (74-106); POTASSIUM 5.2 mmol/L (3.5-5.1); UREA NITROGEN, BLOOD 49 mg/dL (7-18)
[2021-03-07 18:08] LABS: ALANINE AMINOTRANSFERASE 317 U/L (14-59); ALKALINE PHOSPHATASE 222 U/L (50-136); ASPARTATE AMINOTRANSFERASE 287 U/L (15-37); BILIRUBIN,TOTAL 0.2 mg/dL (0.2-1.0); TOTAL PROTEIN, SERUM 5.9 g/dL (6.4-8.2)
[2021-03-07] MEDS ORDERED: IV NORMAL SALINE 100 ML BAG IV ONE (18:30)
[2021-03-07] MEDS ORDERED: FUROSEMIDE 40 MG/4 ML VIAL IV ONE (18:30)
[2021-03-07] MEDS ORDERED: FUROSEMIDE 40 MG/4 ML VIAL ONE (18:54)
--- NOTE | 2021-03-07 19:08 | NUR ---
RECEIVED REPORT FROM FARIDA. PT NOTED TO BE IN BED ASLEEP, BREATHING EVEN AND UNLABORED. SON AT BEDSIDE.
[2021-03-07] MEDS ORDERED: BISACODYL 10 MG SUPP.RECT RC PRN (19:45)
[2021-03-07] MEDS ORDERED: ONDANSETRON HCL 4 MG TABLET PO PRN (19:45)
[2021-03-07] MEDS ORDERED: INSULIN REGULAR, HUMAN 300 UNIT/3 ML VIAL SQ PRN (20:00)
[2021-03-07] MEDS ORDERED: REMEDY ESSENTIAL ZINC PASTE 113 GM TP PRN (20:00)
[2021-03-07] MEDS ORDERED: INSULIN REGULAR, HUMAN 300 UNITS/3 ML VIAL SQ PRN (20:00)
[2021-03-07] MEDS ORDERED: DEXTROSE 50% 50 ML DISP.SYRIN IV PRN (20:00)
--- NOTE | 2021-03-07 22:26 | NUR ---
PT NOTED TO BE SOILED, PROPER PERINEAL CARE RENDERED. NOW NOTED TO BE CLEAN AND DRY. DENIES ANY PAIN/DISCOMFORT.
--- NOTE | 2021-03-07 22:34 | NUR ---
GAVE REPORT TO AARON.
--- NOTE | 2021-03-07 22:55 | NUR ---
Pt. admitted to Med Surg , under care of Dr. Albert Dx: generalized weakness Belongs List completed
--- NOTE | 2021-03-07 23:00 | NUR ---
admitted this80 y.o.lady from er, via [facility] w/ chief complaints of increasing generalized weakness and low blood pressue,alert ,oriented x3, verbally responsive.was on bactrim at home for cellulitis of l eft lower extremity.needs attende to.admission care rendered, md orders carried out,[facility] assessment done,multiple skin issues noted',pt didnot want to be disturbed at this time, deferred photo taking for the morning. pt blood sugar done 89, weight 130, no diabetic crisis noted. iv site on left a.c. patent and intact.slept at short intervals.
[2021-03-07 23:30] VITALS: BP 110/68
[2021-03-08] MEDS: IV NS 1000 ML 1,000 ML IV PRN (02:16)
[2021-03-08] MEDS: TRAZODONE 50 MG TABLET PO SCH ×2 (02:20→20:34)
[2021-03-08 04:00] VITALS: BP 97/56
[2021-03-08 06:15] LABS: HEMATOCRIT 23.9 % (31.2-41.9); MEAN CORPUSCULAR HEMOGLOBIN 32.4 uug (24.7-32.8); PLATELET COUNT (AUTO) 215 K/uL (179-408)
[2021-03-08] MEDS: PANTOPRAZOLE SODIUM 40 MG TABLET.DR PO SCH (06:21)
[2021-03-08 06:22] LABS: CARBON DIOXIDE 21 mmol/L (21-32); CHLORIDE 105 mmol/L (98-107); CHOLESTEROL 107 mg/dL (<200); CREATININE 2.1 mg/dL (0.6-1.3); GLUCOSE 63 mg/dL (74-106); HDL CHOLESTEROL 62 mg/dL (40-60); MAGNESIUM 2.3 mg/dL (1.8-2.4); POTASSIUM 4.6 mmol/L (3.5-5.1); TRIGLYCERIDES 62 MG/DL (30-150); UREA NITROGEN, BLOOD 46 mg/dL (7-18)
[2021-03-08] MEDS: LEVOTHYROXINE SODIUM 50 MCG TABLET PO SCH (06:23)
[2021-03-08] MEDS: BLOOD SUGAR DIAGNOSTIC 1 EACH STRIP VI SCH ×5 (06:55→20:41)
--- NOTE | 2021-03-08 07:00 | NUR ---
pt accidentally pulled out iv line, midline access recommended seondary to skin condition.endorsed to am nurse in fair condition. blood sugar 112.kept dry and clean.
[2021-03-08 07:50] VITALS: BP 97/56
--- NOTE | 2021-03-08 08:34 | NUR ---
pt has right breast mastectomy 12 years ago.
[2021-03-08] MEDS: METOPROLOL SUCCINATE XL 25 MG TAB.SR.24H PO SCH (09:00)
[2021-03-08] MEDS: MIRALAX 17 GM POWD.PACK PO SCH (09:00)
[2021-03-08] MEDS: AMIODARONE HCL 200 MG TABLET PO SCH (09:00)
[2021-03-08] MEDS: ASPIRIN EC 81 MG TABLET.DR PO SCH (10:19)
[2021-03-08] MEDS: DOCUSATE SODIUM 100 MG CAPSULE PO SCH (10:19)
[2021-03-08] MEDS: EZETIMIBE 10 MG TABLET PO SCH (10:20)
[2021-03-08] MEDS: LORATADINE 10 MG TABLET PO SCH (10:20)
[2021-03-08] MEDS: SERTRALINE HCL 50 MG TABLET PO SCH (10:20)
[2021-03-08 12:04] VITALS: BP 121/65
[2021-03-08] MEDS: ACETAMINOPHEN ES 500 MG TABLET PO PRN ×2 (13:45→18:55)
[2021-03-08 16:00] VITALS: BP 99/36
[2021-03-08] MEDS: ATORVASTATIN 40 MG TABLET PO SCH (20:34)
[2021-03-08 20:44] VITALS: BP 136/61
[2021-03-08 20:46] VITALS: BP 136/61
[2021-03-09 04:00] VITALS: BP 102/42
[2021-03-09] MEDS: LEVOTHYROXINE SODIUM 50 MCG TABLET PO SCH (06:12)
[2021-03-09] MEDS: PANTOPRAZOLE SODIUM 40 MG TABLET.DR PO SCH (06:12)
[2021-03-09] MEDS: BLOOD SUGAR DIAGNOSTIC 1 EACH STRIP VI SCH ×3 (06:35→17:20)
[2021-03-09] MEDS: ACETAMINOPHEN ES 500 MG TABLET PO PRN ×3 (06:35→20:58)
[2021-03-09 07:25] LABS: ALANINE AMINOTRANSFERASE 288 U/L (14-59); ALKALINE PHOSPHATASE 183 U/L (50-136); ASPARTATE AMINOTRANSFERASE 282 U/L (15-37); BILIRUBIN,TOTAL 0.2 mg/dL (0.2-1.0); CARBON DIOXIDE 21 mmol/L (21-32); CHLORIDE 107 mmol/L (98-107); CREATININE 2.1 mg/dL (0.6-1.3); GLUCOSE 76 mg/dL (74-106); POTASSIUM 5.2 mmol/L (3.5-5.1); UREA NITROGEN, BLOOD 45 mg/dL (7-18)
--- NOTE | 2021-03-09 08:30 | NUR ---
RECEIVED PATIENT IN BED AWAKE ALERT AND ORIENTED DENIES PAIN OR DISCOMFORTS AT THIS TIME ON IVF ORDERED WITH NO S/S OF INFILTERATION ON SITE LEFT UPPER ARM MIDLINE PATENT AT THIS TIME CALL LIGHTS AND PERSONAL BELONGINGS ARE WITHIN EACH WILL CONTINUE TO OBSERVE.
[2021-03-09] MEDS: METOPROLOL SUCCINATE XL 25 MG TAB.SR.24H PO SCH (09:00)
[2021-03-09] MEDS: SERTRALINE HCL 50 MG TABLET PO SCH (09:22)
[2021-03-09] MEDS: DOCUSATE SODIUM 100 MG CAPSULE PO SCH (09:22)
[2021-03-09] MEDS: EZETIMIBE 10 MG TABLET PO SCH (09:22)
[2021-03-09] MEDS: LORATADINE 10 MG TABLET PO SCH (09:23)
[2021-03-09] MEDS: MIRALAX 17 GM POWD.PACK PO SCH (09:24)
[2021-03-09] MEDS: AMIODARONE HCL 200 MG TABLET PO SCH (09:25)
[2021-03-09] MEDS: ASPIRIN EC 81 MG TABLET.DR PO SCH (09:29)
[2021-03-09 12:00] VITALS: BP 90/36
[2021-03-09] MEDS: IV NS 1000 ML 1,000 ML IV PRN (14:52)
--- NOTE | 2021-03-09 14:53 | NUR ---
DR CORRAL HERE TO SEE PATIENT WITH NEW ORDERS AND NOTED MD AWARE THAT PATIENT IS INCONTINENT AND HE STATED THAT IT WAS OKAY IF WE ARE UNABLE TO COLLECT THE URINE STATED TO NOT CATH PATIENT AT THIS TIME
[2021-03-09 16:00] VITALS: BP 99/38
--- NOTE | 2021-03-09 18:29 | NUR ---
BLOOD SUGAR CHECKS DISCONTINUE ORDERED AND NOTED
[2021-03-09] MEDS: TRAZODONE 50 MG TABLET PO SCH (20:33)
[2021-03-09] MEDS: ATORVASTATIN 40 MG TABLET PO SCH (20:33)
[2021-03-09 20:54] VITALS: BP 99/39
[2021-03-10] MEDS ORDERED: REMEDY ESSENTIAL ZINC PASTE 113 GM TOP PRN (02:30)
[2021-03-10 05:41] VITALS: BP 109/45
[2021-03-10] MEDS: LEVOTHYROXINE SODIUM 50 MCG TABLET PO SCH (06:43)
[2021-03-10] MEDS: PANTOPRAZOLE SODIUM 40 MG TABLET.DR PO SCH (06:43)
[2021-03-10] MEDS: ACETAMINOPHEN ES 500 MG TABLET PO PRN ×2 (06:43→23:23)
[2021-03-10 07:10] LABS: HEMATOCRIT 25.4 % (31.2-41.9); MEAN CORPUSCULAR HEMOGLOBIN 32.5 uug (24.7-32.8); MEAN CORPUSCULAR VOLUME 97.4 fL (75.5-95.3); PLATELET COUNT (AUTO) 216 K/uL (179-408)
--- NOTE | 2021-03-10 07:35 | NUR ---
Received patient in bed awake and oriented. Denies pain or discomfort at this time. On iVF hydration ongoing Remedios site no infiltration noted. Verbalized she slept very well last night. Call light and personal belongings in reach. Cont to monitor.
[2021-03-10 07:42] LABS: IRON, SERUM 64 ug/dL (50-175)
[2021-03-10 08:04] LABS: ALANINE AMINOTRANSFERASE 266 U/L (14-59); ALKALINE PHOSPHATASE 163 U/L (50-136); ASPARTATE AMINOTRANSFERASE 220 U/L (15-37); BILIRUBIN,TOTAL 0.2 mg/dL (0.2-1.0); CARBON DIOXIDE 24 mmol/L (21-32); CHLORIDE 108 mmol/L (98-107); CREATININE 1.5 mg/dL (0.6-1.3); FERRITIN 1606 ng/mL (8-252); GLUCOSE 79 mg/dL (74-106); MAGNESIUM 2.1 mg/dL (1.8-2.4); PHOSPHOROUS 2.9 mg/dL (2.5-4.9); TOTAL PROTEIN, SERUM 4.9 g/dL (6.4-8.2); UREA NITROGEN, BLOOD 36 mg/dL (7-18)
[2021-03-10 08:14] LABS: THYROID STIMULATING HORMONE 10.069 mIU/mL (0.358-3.740)
[2021-03-10 08:16] LABS: CREATINE KINASE, TOTAL 612 U/L (26-192)
[2021-03-10] MEDS: DOCUSATE SODIUM 100 MG CAPSULE PO SCH (08:28)
[2021-03-10] MEDS: METOPROLOL SUCCINATE XL 25 MG TAB.SR.24H PO SCH (08:29)
[2021-03-10] MEDS: MIRALAX 17 GM POWD.PACK PO SCH (08:29)
[2021-03-10] MEDS: LORATADINE 10 MG TABLET PO SCH (08:29)
[2021-03-10] MEDS: ASPIRIN EC 81 MG TABLET.DR PO SCH (08:29)
[2021-03-10] MEDS: REMEDY ESSENTIAL ZINC PASTE 113 GM TOP SCH ×2 (08:29→20:13)
[2021-03-10] MEDS: SERTRALINE HCL 50 MG TABLET PO SCH (08:29)
[2021-03-10] MEDS: AMIODARONE HCL 200 MG TABLET PO SCH (08:29)
[2021-03-10] MEDS: GLUCERNA SHAKE VANILLA 237 ML CAN PO SCH ×3 (11:17→18:25)
[2021-03-10 12:00] VITALS: BP 108/44
--- NOTE | 2021-03-10 13:17 | NUR ---
The patient had lunch. Unable to perform US Abdomen complete
[2021-03-10 16:00] VITALS: BP 104/40
--- NOTE | 2021-03-10 18:37 | NUR ---
Patient watching tv. No acute distress. Noted with good appetite. Had a visitor this afternoon around 1430 and brought food for her which she also ate. Denies pain. Needs attended.
[2021-03-10 20:08] VITALS: BP 104/44
[2021-03-10] MEDS: TRAZODONE 50 MG TABLET PO SCH (20:12)
[2021-03-10] MEDS: ATORVASTATIN 40 MG TABLET PO SCH (20:13)
[2021-03-11 04:12] VITALS: BP 148/68
[2021-03-11] MEDS: PANTOPRAZOLE SODIUM 40 MG TABLET.DR PO SCH (06:03)
[2021-03-11] MEDS: LEVOTHYROXINE SODIUM 75 MCG TABLET PO SCH (06:03)
[2021-03-11 06:27] LABS: MEAN CORPUSCULAR HEMOGLOBIN 32.7 uug (24.7-32.8); MEAN CORPUSCULAR VOLUME 99.1 fL (75.5-95.3); PLATELET COUNT (AUTO) 254 K/uL (179-408)
[2021-03-11] MEDS ORDERED: LEVOTHYROXINE SODIUM 50 MCG TABLET PO SCH (07:00)
[2021-03-11 07:47] LABS: BILIRUBIN,TOTAL 0.3 mg/dL (0.2-1.0); CREATININE 1.2 mg/dL (0.6-1.3); MAGNESIUM 2.3 mg/dL (1.8-2.4); PHOSPHOROUS 2.3 mg/dL (2.5-4.9); POTASSIUM 5.4 mmol/L (3.5-5.1); TOTAL PROTEIN, SERUM 5.5 g/dL (6.4-8.2)
--- NOTE | 2021-03-11 08:03 | NUR ---
Received in bed opens eyes oriented x3. No acute distress noted. Denies pain or discomfort at this time. IV is intact and patent. Appears comfortable. Call light and personal belongings in reach. Cont to monitor.
[2021-03-11] MEDS: LORATADINE 10 MG TABLET PO SCH (09:11)
[2021-03-11] MEDS: DOCUSATE SODIUM 100 MG CAPSULE PO SCH (09:11)
[2021-03-11] MEDS: AMIODARONE HCL 200 MG TABLET PO SCH (09:11)
[2021-03-11] MEDS: METOPROLOL SUCCINATE XL 25 MG TAB.SR.24H PO SCH (09:11)
[2021-03-11] MEDS: GLUCERNA SHAKE VANILLA 237 ML CAN PO SCH ×3 (09:12→17:38)
[2021-03-11] MEDS: SERTRALINE HCL 50 MG TABLET PO SCH (09:12)
[2021-03-11] MEDS: ASPIRIN EC 81 MG TABLET.DR PO SCH (09:12)
[2021-03-11] MEDS: MIRALAX 17 GM POWD.PACK PO SCH (09:12)
[2021-03-11] MEDS: REMEDY ESSENTIAL ZINC PASTE 113 GM TOP SCH ×2 (09:13→20:17)
[2021-03-11 11:02] LABS: *BILIRUBIN,URIN NEGATIVE (NEGATIVE); *BLOOD, URINE 2+ (NEGATIVE); *COLOR,URINE YELLOW (YELLOW); *KETONES,URINE NEGATIVE (NEGATIVE); *UROBILINOGEN,URINE 0.2 E.U./dl (NORMAL); LEUKOCYTE ESTERASE ,URINE TRACE (NEGATIVE); NITRITE, URINE NEGATIVE (NEGATIVE); PH,URINE 5.5 (5.0-8.0); UGLUCOSE 2+ (NEGATIVE)
[2021-03-11 11:12] VITALS: BP 128/59
[2021-03-11 11:12] LABS: *CREATININE,URINE 38.5 mg/dL (30-125); *URINE TOTAL PROTEIN RANDOM 40.7 mg/dL (<150/24HR)
[2021-03-11 14:34] LABS: *CLARITY,URINE SLIGHTLY HAZY (CLEAR); BACTERIA,URINE FEW /HPF (NONE SEEN); CALCIUM OXALATE CRYSTALS,UR FEW /HPF (NONE SEEN); SQUAMOUS EPITHELIAL CELL,UR FEW /HPF (NONE SEEN); URINE AMORPHOUS URATE FEW /HPF
[2021-03-11 15:09] VITALS: BP 123/51
[2021-03-11] MEDS ORDERED: SODIUM PHOSPHATE MM 15 MMOL in IV NORMAL SALINE 250 ML IV ONE (16:30)
--- NOTE | 2021-03-11 18:23 | NUR ---
Compliant with care and medication. No acute distress. Pleasant. Eats well.
[2021-03-11] MEDS: TRAZODONE 50 MG TABLET PO SCH (20:16)
[2021-03-11] MEDS: ATORVASTATIN 40 MG TABLET PO SCH (20:16)
[2021-03-11 20:57] VITALS: BP 121/58
[2021-03-12 04:24] VITALS: BP 111/54
[2021-03-12 05:06] LABS: HEPATITIS B SURFACE AG Negative (Negative)
[2021-03-12] MEDS: ACETAMINOPHEN ES 500 MG TABLET PO PRN (06:16)
[2021-03-12] MEDS: LEVOTHYROXINE SODIUM 75 MCG TABLET PO SCH (06:16)
[2021-03-12] MEDS: PANTOPRAZOLE SODIUM 40 MG TABLET.DR PO SCH (06:16)
--- NOTE | 2021-03-12 07:45 | NUR ---
Received awake in bed in pleasant mood. Denies sob or pain. Stated she's going home today and the doctor talked to her about her discharged. She verbalized understanding. Comfortable. No complaints at this time just eager to go home. Call light and personal belongings in reach. Cont to monitor.
[2021-03-12 08:00] LABS: CREATININE 0.8 mg/dL (0.6-1.3); PHOSPHOROUS 2.7 mg/dL (2.5-4.9); POTASSIUM 4.8 mmol/L (3.5-5.1)
[2021-03-12] MEDS: SERTRALINE HCL 50 MG TABLET PO SCH (08:38)
[2021-03-12] MEDS: LORATADINE 10 MG TABLET PO SCH (08:38)
[2021-03-12] MEDS: DOCUSATE SODIUM 100 MG CAPSULE PO SCH (08:38)
[2021-03-12] MEDS: AMIODARONE HCL 200 MG TABLET PO SCH (08:38)
[2021-03-12] MEDS: ASPIRIN EC 81 MG TABLET.DR PO SCH (08:38)
[2021-03-12] MEDS: GLUCERNA SHAKE VANILLA 237 ML CAN PO SCH ×2 (08:39→15:02)
[2021-03-12] MEDS: METOPROLOL SUCCINATE XL 25 MG TAB.SR.24H PO SCH (08:42)
[2021-03-12] MEDS: MIRALAX 17 GM POWD.PACK PO SCH (08:43)
[2021-03-12] MEDS: REMEDY ESSENTIAL ZINC PASTE 113 GM TOP SCH (08:43)
[2021-03-12 11:49] VITALS: BP 114/51
[2021-03-12 12:06] LABS: A/G RATIO 0.7 (0.7-1.7); ALBUMIN 2.1 g/dL (2.9-4.4); ALPHA-1-GLOBULIN 0.3 g/dL (0.0-0.4); BETA GLOBULIN 0.8 g/dL (0.7-1.3); M-SPIKE Not Observed g/dL (Not Observed)
--- NOTE | 2021-03-12 13:45 | NUR ---
Discharge instructions relayed to the patient and verbalized understanding. Removed Remedios Iv no bleeding noted.
--- NOTE | 2021-03-12 14:30 | NUR ---
Picked up by her son alecia zhu. Left via in private vehicle in stable condition.
[2021-03-13 11:07] LABS: A/G RATIO 0.6 (0.7-1.7); ALBUMIN 1.7 g/dL (2.9-4.4); ALPHA-1-GLOBULIN 0.3 g/dL (0.0-0.4); ALPHA-2-GLOBULIN 0.9 g/dL (0.4-1.0); BETA GLOBULIN 1.2 g/dL (0.7-1.3); GAMMA GLOBULIN 0.5 g/dL (0.4-1.8); GLOBULIN, TOTAL 2.8 g/dL (2.2-3.9); M-SPIKE 0.6 g/dL (Not Observed)
== END 2021-03-12 14:25 | disposition home health service (06) | DRG 682 ==
LOC: ER 16:18 → MEDSURG3 22:40
PROVIDERS: ADMIT Internal Medicine Nephrology; ATTEND Internal Medicine Nephrology
PROC: 05H633Z Insertion of Infusion Device into Left Subclavian Vein, Percutaneous Approach (ICD-10-PCS; principal; 2021-03-08)
PROC: B547ZZA Ultrasonography of Left Subclavian Vein, Guidance (ICD-10-PCS; 2021-03-08)
DX: N17.0 Acute kidney failure with tubular necrosis (principal); E43 Unspecified severe protein-calorie malnutrition; G92.8 Other toxic encephalopathy; E87.1 Hypo-osmolality and hyponatremia; D68.59 Other primary thrombophilia; M62.82 Rhabdomyolysis; I50.22 Chronic systolic (congestive) heart failure; R11.2 Nausea with vomiting, unspecified; I11.0 Hypertensive heart disease with heart failure; R62.7 Adult failure to thrive; D64.9 Anemia, unspecified; E03.9 Hypothyroidism, unspecified; E11.9 Type 2 diabetes mellitus without complications; E88.09 Other disorders of plasma-protein metabolism, not elsewhere classified; E78.5 Hyperlipidemia, unspecified; E86.1 Hypovolemia; E87.5 Hyperkalemia; I25.10 Atherosclerotic heart disease of native coronary artery without angina pectoris; I27.20 Pulmonary hypertension, unspecified; Z87.891 Personal history of nicotine dependence; Z86.73 Personal history of transient ischemic attack (TIA), and cerebral infarction without residual deficits; Z90.11 Acquired absence of right breast and nipple; Z85.3 Personal history of malignant neoplasm of breast; I48.0 Paroxysmal atrial fibrillation; I25.2 Old myocardial infarction; R53.1 Weakness; Z68.25 Body mass index [BMI] 25.0-25.9, adult; A08.4 Viral intestinal infection, unspecified; I08.1 Rheumatic disorders of both mitral and tricuspid valves; R74.01 Elevation of levels of liver transaminase levels; D75.89 Other specified diseases of blood and blood-forming organs; R23.3 Spontaneous ecchymoses; Z20.822 Contact with and (suspected) exposure to COVID-19; J44.9 Chronic obstructive pulmonary disease, unspecified; Z79.4 Long term (current) use of insulin
CPT/HCPCS: 36415; 70030-TC; 70450; 71045; 73080; 76705; 76770; 83550; 83735; 83970; 84100; 84155; 84156; 84165; 84300; 84443; 85025; 86706; 86803; 87340; 93005; 97161; A4663; A6209; A9150; G0378; J1815; J1940; J3490; J7030; J7042; J7050; Q0162

== ENCOUNTER 2021-05-26 10:29 | Inpatient (IN) | payer MEDICARE, BC ==
[~2021-05-26] VITALS: Ht 152.4 cm; Wt 65.3 kg
[~2021-05-26 10:29] MED LIST changes: +ACET-2605 PO; +BISA10SU95 RC; +LISI-782 PO; -MIDO2.5T PO; +ONDA-104 PO; +SERT50TA PO; +TRAZ-182 PO
[2021-05-26] MEDS ORDERED: TYLENOL #3 PO (10:58)
[2021-05-26] MEDS ORDERED: DIPH25CA83 PO (10:58)
[2021-05-26 11:12] LABS: HEMATOCRIT 33.3 % (31.2-41.9); MEAN CORPUSCULAR HEMOGLOBIN 31.4 uug (24.7-32.8); MEAN CORPUSCULAR VOLUME 95.6 fL (75.5-95.3); PLATELET COUNT (AUTO) 239 K/uL (179-408)
--- NOTE | 2021-05-26 11:15 | NUR ---
DR CASTILLO AT BEDSIDE FOR EVALUATION. PT PLACED ON O2 MASK AT 6L/M; IMPROVED SAO2 96%.
[2021-05-26] MEDS ORDERED: FUROSEMIDE 40 MG/4 ML VIAL IV ONE (12:15)
[2021-05-26 12:22] LABS: CARBON DIOXIDE 29 mmol/L (21-32); CHLORIDE 106 mmol/L (98-107); CREATININE 1.6 mg/dL (0.6-1.3); GLUCOSE 141 mg/dL (74-106); POTASSIUM 3.5 mmol/L (3.5-5.1); UREA NITROGEN, BLOOD 27 mg/dL (7-18)
[2021-05-26 12:34] LABS: ALANINE AMINOTRANSFERASE 77 U/L (14-59); ALKALINE PHOSPHATASE 119 U/L (50-136); ASPARTATE AMINOTRANSFERASE 57 U/L (15-37); BILIRUBIN,DIRECT 0.1 mg/dL (0.0-0.2); BILIRUBIN,TOTAL 0.4 mg/dL (0.2-1.0); TOTAL PROTEIN, SERUM 6.4 g/dL (6.4-8.2)
[2021-05-26] MEDS ORDERED: FUROSEMIDE 40 MG/4 ML VIAL ONE (12:49)
[2021-05-26] MEDS ORDERED: FUROSEMIDE 20 MG/2 ML VIAL ONE ×2 (12:50→12:52)
--- NOTE | 2021-05-26 13:42 | NUR ---
REPORT WAS GIVEN TO [employer] R[employer] SETTER. PT WAS TRANSFERED TO ROOM #308.
--- NOTE | 2021-05-26 14:35 | NUR ---
Received from ER. awake, alert oriented. Oriented to surroundings.
--- NOTE | 2021-05-26 15:30 | NUR ---
Inc. of large , soft, formed stool. Total linen change. Friends at bedside.
[2021-05-26 16:30] VITALS: BP 144/48
--- NOTE | 2021-05-26 18:00 | NUR ---
Son visiting. Message sent to Dr. Moore for admission orders.
--- NOTE | 2021-05-26 18:30 | NUR ---
O2 sat. 97% on O2 at 4l n/c. No c/o discomfort. Skin tears noted right forearm, left lower leg & left forearm. States she fell at home yesterday, and son dressed wounds. Wound care notified.
[2021-05-26 20:00] VITALS: BP 164/92
--- NOTE | 2021-05-26 21:30 | NUR ---
Patient in bed awake and able to make needs known.Denies pain or discomfort at this time.on O2 at 4l n/c saturating at 96 %.Iv patent and intact.Multiple skin discoloration noted on carrington upper ext. Edema on bilateral lower legs. Elevated with pillow.NSR on tele.Safety measures in place. Call light with in reach.Notified for admissions orders.Will continue to monitor.
[2021-05-26 23:11] LABS: MEAN CORPUSCULAR VOLUME 95.6 fL (75.5-95.3); PLATELET COUNT (AUTO) 209 K/uL (179-408)
[2021-05-26 23:15] LABS: ALANINE AMINOTRANSFERASE 99 U/L (14-59); ALKALINE PHOSPHATASE 101 U/L (50-136); ASPARTATE AMINOTRANSFERASE 79 U/L (15-37); BILIRUBIN,TOTAL 0.3 mg/dL (0.2-1.0); CARBON DIOXIDE 31 mmol/L (21-32); CHLORIDE 107 mmol/L (98-107); CREATININE 1.7 mg/dL (0.6-1.3); GLUCOSE 108 mg/dL (74-106); POTASSIUM 3.5 mmol/L (3.5-5.1); TOTAL PROTEIN, SERUM 5.6 g/dL (6.4-8.2); UREA NITROGEN, BLOOD 28 mg/dL (7-18)
[2021-05-27] VITALS: BP 136/50
[2021-05-27 04:00] VITALS: BP 112/50
[2021-05-27 05:27] LABS: *BILIRUBIN,URIN NEGATIVE (NEGATIVE); *BLOOD, URINE 1+ (NEGATIVE); *CLARITY,URINE CLEAR (CLEAR); *COLOR,URINE YELLOW (YELLOW); *KETONES,URINE NEGATIVE (NEGATIVE); *UROBILINOGEN,URINE 0.2 E.U./dl (NORMAL); LEUKOCYTE ESTERASE ,URINE NEGATIVE (NEGATIVE); NITRITE, URINE NEGATIVE (NEGATIVE); PH,URINE 5.5 (5.0-8.0)
[2021-05-27 05:32] LABS: UGLUCOSE 1+ (NEGATIVE)
--- NOTE | 2021-05-27 07:30 | NUR ---
PATIENT IS IN BED AWAKE ALERT AND ORIENTED DENIES PAIN OR DISCOMFORTS AT THIS TIME ON O2 WITH NO S/S OF SHORTNESS OF BREATH AT THIS TIME TELE IS SR WITH NO ECTOPY [place] EDEMEA ELEVATED ON THE PILLOW CALL LIGHTS AND PERSONAL BELONGINGS ARE WITHIN EASY REACH MADE COMFORTABLE WILL CONTINUE TO OBSERVE.
[2021-05-27] MEDS: ASPIRIN 81 MG TAB.CHEW PO SCH (09:57)
[2021-05-27] MEDS: FUROSEMIDE 40 MG/4 ML VIAL IV SCH ×2 (09:57→21:31)
[2021-05-27] MEDS: AMIODARONE HCL 200 MG TABLET PO SCH (09:58)
[2021-05-27] MEDS: METOPROLOL SUCCINATE XL 25 MG TAB.SR.24H PO SCH (09:59)
[2021-05-27] MEDS: LISINOPRIL 5 MG TABLET PO SCH (09:59)
[2021-05-27 11:13] LABS: BACTERIA,URINE NONE SEEN /HPF (NONE SEEN); SQUAMOUS EPITHELIAL CELL,UR FEW /HPF (NONE SEEN); WBC,URINE 0-3 /HPF (0-3)
[2021-05-27 11:34] VITALS: BP 127/52
--- NOTE | 2021-05-27 12:06 | NUR ---
WOUND CARE CONSULT: PT PRESENTS WITH SKIN TEAR TO RT ARM AND WOUND TO LEFT LOWER LEG, PRESENT ON ADMISSION. RECOMMENDATIONS MADE FOR SKIN PROTECTION. DISCUSSED WITH NURSING STAFF. DPM CONSULT CALLED TO DR PERRY. PT IS INCONTINENT. MD IN AGREEMENT WITH PLAN OF CARE.
[2021-05-27] MEDS ORDERED: REMEDY ESSENTIAL ZINC PASTE 113 GM TOP PRN (12:15)
[2021-05-27 16:11] VITALS: BP 129/47
[2021-05-27] MEDS ORDERED: FURO40TA5 PO (16:41)
[2021-05-27] MEDS ORDERED: LISI-782 PO (16:44)
[2021-05-27] MEDS ORDERED: SERT50TA PO (16:44)
[2021-05-27] MEDS ORDERED: METO-356 PO (16:44)
[2021-05-27] MEDS ORDERED: EZET10TA15 PO (16:44)
[2021-05-27] MEDS ORDERED: PANT40TA49 PO (16:44)
[2021-05-27] MEDS ORDERED: LEVO50TA8 PO (16:44)
[2021-05-27] MEDS ORDERED: ASPI-866 PO (16:44)
[2021-05-27] MEDS ORDERED: DAPA10TA PO (16:44)
[2021-05-27] MEDS ORDERED: ACET-73 PO (16:49)
[2021-05-27] MEDS ORDERED: LORA10TA7 PO (16:49)
[2021-05-27] MEDS ORDERED: AMIO200T5 PO (16:49)
[2021-05-27] MEDS ORDERED: ONDA-104 PO (16:49)
[2021-05-27] MEDS ORDERED: BISA-79 PO (16:49)
[2021-05-27] MEDS ORDERED: DOCU100C36 PO (16:49)
[2021-05-27] MEDS ORDERED: TYLENOL PM PO (16:49)
[2021-05-27] MEDS ORDERED: TRAZ-182 PO (16:49)
[2021-05-27] MEDS ORDERED: POLY17PO4 PO (16:49)
[2021-05-27] MEDS ORDERED: ACET1TAB22 PO (16:49)
[2021-05-27] MEDS ORDERED: ATOR80TA PO (16:50)
[2021-05-27] MEDS ORDERED: ACET1TAB23 PO (16:53)
--- NOTE | 2021-05-27 17:30 | NUR ---
SPOKE WITH PATIENTS SON AND CONFIRMED WITH HIM THAT THE LIST OF MEDICATIONS IN HER CHART IS THE CURRENT MEDICATIONS LIST SO THIS LIST FAXED TO THE PHARMACY AND JUAN CARLOS CONFIRMED RECEIPT
--- NOTE | 2021-05-27 19:30 | NUR ---
Received pt awake, alert and oriented x3. Pt in no acute distress. Iv intact. Safety and comfort provided. Will continue to monitor.
[2021-05-27 20:05] VITALS: BP 143/58
--- NOTE | 2021-05-27 20:31 | NUR ---
Dr Hodge ordered Trazadone 50 mg for sleep. Pt is requesting her medication.
[2021-05-27] MEDS ORDERED: TRAZODONE 50 MG TABLET PO PRN (20:45)
--- NOTE | 2021-05-27 21:20 | NUR ---
Pt ordered Tylenol 650 mg prn for pain. Pt asking for her pain medication.
[2021-05-27] MEDS ORDERED: ACETAMINOPHEN 325 MG TABLET PO PRN (21:30)
[2021-05-27] MEDS: EZETIMIBE 10 MG TABLET PO SCH (21:31)
[2021-05-27] MEDS: ATORVASTATIN 40 MG TABLET PO SCH (21:31)
[2021-05-27] MEDS: REMEDY ESSENTIAL ZINC PASTE 113 GM TOP SCH (21:32)
--- NOTE | 2021-05-27 21:33 | NUR ---
One of the Lipitor 40 mg tablet accidentally fell on the floor by the pt.
--- NOTE | 2021-05-27 21:45 | NUR ---
Gave the 40 mg Lipitor that I took from the pyxis to the pt to replace the wasted medication.
--- NOTE | 2021-05-27 22:13 | NUR ---
Pt Iv infiltrated. Multiple IV attempted. Notify contracting support specialist regarding the issue. DR. Olmedo ordered midline insertion for the pt.
[2021-05-28 00:18] VITALS: BP 144/53
[2021-05-28 04:09] VITALS: BP 129/45
--- NOTE | 2021-05-28 06:24 | NUR ---
Pt slept intermittently. Pt in no acute distress. Iv intact. Pt turned and repositioned. Pt Iv on left forearm 22 G. Prescribed medication given and pt tolerated it well.Pt vital signs within normal limit. Pt afebrile. Safety and comfort provided. All needs are met. Will endorse to incoming nurse for continuity of care.
--- NOTE | 2021-05-28 07:20 | NUR ---
RECEIVED PATIENT AWAKE ALERT AND VERBALLY RESPONSIVE DENIES PAIN ON DISCOMFORTS AT THIS TIME ON IVF AT 4L BY NASAL CANULA WITH NO S/S OF SHORTNESS OF BREATH AT THIS TIME TELE IS SR BOTH LOWER EXT WITH EDEMA ELEVATED ON THE PILLOW CALL LIGHTS AND PERSONAL BELONGINGS ARE WITHIN EASY REACH AT THIS TIME WILL CONTINUE TO OBSERVE
--- NOTE | 2021-05-28 08:15 | NUR ---
MID LINE INSERTED TO HER LEFT UPPER ARM GAUGE 20 AND TOLERATED WELL.
[2021-05-28 08:43] LABS: HEMATOCRIT 28.9 % (31.2-41.9); MEAN CORPUSCULAR HEMOGLOBIN 32.1 uug (24.7-32.8); MEAN CORPUSCULAR VOLUME 94.7 fL (75.5-95.3); PLATELET COUNT (AUTO) 202 K/uL (179-408)
[2021-05-28 08:59] LABS: CARBON DIOXIDE 35 mmol/L (21-32); CHLORIDE 105 mmol/L (98-107); CREATININE 1.4 mg/dL (0.6-1.3); GLUCOSE 110 mg/dL (74-106); POTASSIUM 3.6 mmol/L (3.5-5.1); UREA NITROGEN, BLOOD 24 mg/dL (7-18)
[2021-05-28 09:06] LABS: ALANINE AMINOTRANSFERASE 98 U/L (14-59); ALKALINE PHOSPHATASE 102 U/L (50-136); ASPARTATE AMINOTRANSFERASE 63 U/L (15-37); BILIRUBIN,TOTAL 0.5 mg/dL (0.2-1.0); TOTAL PROTEIN, SERUM 5.6 g/dL (6.4-8.2)
[2021-05-28 09:11] LABS: PHOSPHOROUS 3.6 mg/dL (2.5-4.9)
[2021-05-28] MEDS: ASPIRIN 81 MG TAB.CHEW PO SCH (09:39)
[2021-05-28] MEDS: AMIODARONE HCL 200 MG TABLET PO SCH (09:40)
[2021-05-28] MEDS: LISINOPRIL 5 MG TABLET PO SCH (09:41)
[2021-05-28] MEDS: FUROSEMIDE 40 MG/4 ML VIAL IV SCH ×2 (09:41→20:59)
[2021-05-28] MEDS: METOPROLOL SUCCINATE XL 25 MG TAB.SR.24H PO SCH (09:41)
[2021-05-28] MEDS: REMEDY ESSENTIAL ZINC PASTE 113 GM TOP SCH ×2 (09:48→21:07)
--- NOTE | 2021-05-28 11:00 | NUR ---
PATIENT SEEN BY THE PHYSICAL THERAPIST FOR THERAPEUTIC EXERCISES AND PATIENT GAITED IN THE HALLWAY WITH THE FRONT WHEEL WALKER WITH GOOD ENDURANCE.
[2021-05-28 11:39] VITALS: BP 90/34
[2021-05-28 16:24] VITALS: BP 117/41
--- NOTE | 2021-05-28 17:30 | NUR ---
DR BIRCH HERE AND SEEN PATIENT AND RECONCILED PATIENTS HOME MEDICATIONS AND FAXED TO THE PHARMACY HE ALSO ORDERED ERYTHROMICIN OINTMENT FOR HER RIGHT EYE PER PATIENTS SON HE STATED THAT PATIENT HAS RECEIVED A PRESCRIPTION FOR THIS MEDICATION BUT THAT HE WAS NOT ABLE TO PICK IT UP FROM THE PHARMACY.
[2021-05-28] MEDS ORDERED: ONDANSETRON HCL 4 MG TABLET PO PRN (18:00)
[2021-05-28] MEDS ORDERED: BISACODYL 5 MG TABLET.DR PO PRN (18:00)
[2021-05-28] MEDS ORDERED: ACETAMINOPHEN ES 500 MG TABLET- SA PATIENTS-PAIN ONLY PO PRN (18:00)
[2021-05-28] MEDS ORDERED: MIRALAX 17 GM POWD.PACK PO PRN (18:00)
[2021-05-28] MEDS: ACETAMINOPHEN ES 500 MG TABLET PO PRN (18:25)
--- NOTE | 2021-05-28 18:26 | NUR ---
REQUESTED FOR TYLENOL STATED HAS GENERALISED PAIN MEDICATED ORDERED MADE COMFORTABLE WILL CONTINUE TO OBSERVE.
[2021-05-28] MEDS: ERYTHROMYCIN 0.5% OPHT OINT 3.5 GM TUBE RIGHTEYE SCH (18:48)
--- NOTE | 2021-05-28 19:30 | NUR ---
Received pt awake, alert and orientedx4. Son at bedside. Pt in no acute distress. Iv intact. Safety and comfort provided. Will continue to monitor.
[2021-05-28 20:00] VITALS: BP 129/47
[2021-05-28] MEDS: EZETIMIBE 10 MG TABLET PO SCH (20:59)
[2021-05-28] MEDS: TRAZODONE 50 MG TABLET PO SCH (20:59)
[2021-05-28] MEDS: ATORVASTATIN 40 MG TABLET PO SCH (20:59)
[2021-05-29 00:21] VITALS: BP 98/40
[2021-05-29 04:28] VITALS: BP 105/40
[2021-05-29 04:32] VITALS: BP 105/40
--- NOTE | 2021-05-29 06:07 | NUR ---
Pt in no acute distress. Iv intact. Pt on Sinus rhythm. Prescribed medication given and pt tolerated it well.Iv intact. Pt dressing changed. Safety and comfort provided. All needs are met. Will endorse to incoming nurse for continuity of care.
[2021-05-29] MEDS: LEVOTHYROXINE SODIUM 50 MCG TABLET PO SCH (06:27)
[2021-05-29] MEDS: PANTOPRAZOLE SODIUM 40 MG TABLET.DR PO SCH (06:27)
[2021-05-29] MEDS: ERYTHROMYCIN 0.5% OPHT OINT 3.5 GM TUBE RIGHTEYE SCH ×2 (06:28→17:40)
[2021-05-29 07:21] LABS: HEMATOCRIT 28.1 % (31.2-41.9); PLATELET COUNT (AUTO) 188 K/uL (179-408)
[2021-05-29 07:41] LABS: CREATININE 1.3 mg/dL (0.6-1.3); POTASSIUM 3.6 mmol/L (3.5-5.1)
--- NOTE | 2021-05-29 08:00 | NUR ---
RESTING COMFORTABLY IN BED NO SS OF PAIN OR DISTRESS, SR ON MONITOR
[2021-05-29] MEDS: DOCUSATE SODIUM 100 MG CAPSULE PO SCH (08:58)
[2021-05-29] MEDS: ASPIRIN 81 MG TAB.CHEW PO SCH (08:58)
[2021-05-29] MEDS: FUROSEMIDE 40 MG/4 ML VIAL IV SCH (08:58)
[2021-05-29] MEDS: LISINOPRIL 5 MG TABLET PO SCH (08:59)
[2021-05-29] MEDS: SERTRALINE HCL 50 MG TABLET PO SCH (08:59)
[2021-05-29] MEDS: METOPROLOL SUCCINATE XL 25 MG TAB.SR.24H PO SCH (09:00)
[2021-05-29] MEDS: REMEDY ESSENTIAL ZINC PASTE 113 GM TOP SCH ×2 (09:01→20:28)
[2021-05-29] MEDS: LORATADINE 10 MG TABLET PO SCH (09:19)
[2021-05-29] MEDS: AMIODARONE HCL 200 MG TABLET PO SCH (09:20)
[2021-05-29] MEDS ORDERED: POTASSIUM CHLORIDE 20 MEQ POWDER PACKET PO ONE (10:00)
[2021-05-29] MEDS ORDERED: MIRALAX 17 GM POWD.PACK PO PRN (10:45)
[2021-05-29] MEDS ORDERED: HYDROCODONE/APAP 5-325MG TABLET PO PRN (10:45)
[2021-05-29 12:00] VITALS: BP 127/40
--- NOTE | 2021-05-29 12:00 | NUR ---
SEEN BY CHANGE AGENT FOR FOLLOW-UP SEE NOTES. TAPERED O2 AND CLOSELY OBSERVE
[2021-05-29 16:05] VITALS: BP 122/42
[2021-05-29] MEDS ORDERED: FUROSEMIDE 40 MG TABLET PO SCH (17:00)
--- NOTE | 2021-05-29 17:16 | NUR ---
TOLERATING O2 AT 2L NC SATURATING 97%, DENIES DISTRESS OR CHEST PAIN
[2021-05-29] MEDS: EZETIMIBE 10 MG TABLET PO SCH (20:27)
[2021-05-29] MEDS: ATORVASTATIN 40 MG TABLET PO SCH (20:27)
[2021-05-29] MEDS: TRAZODONE 50 MG TABLET PO SCH (20:29)
[2021-05-29] MEDS: ACETAMINOPHEN ES 500 MG TABLET PO PRN (20:45)
[2021-05-29 20:51] VITALS: BP 115/38
[2021-05-30] MEDS: ACETAMINOPHEN ES 500 MG TABLET PO PRN (02:37)
[2021-05-30 04:00] VITALS: BP 104/37
[2021-05-30] MEDS: LEVOTHYROXINE SODIUM 50 MCG TABLET PO SCH (06:19)
[2021-05-30] MEDS: ERYTHROMYCIN 0.5% OPHT OINT 3.5 GM TUBE RIGHTEYE SCH (06:19)
[2021-05-30] MEDS: PANTOPRAZOLE SODIUM 40 MG TABLET.DR PO SCH (06:19)
[2021-05-30] MEDS ORDERED: FUROSEMIDE 40 MG TABLET PO SCH (09:00)
[2021-05-30] MEDS: LISINOPRIL 5 MG TABLET PO SCH (09:00)
[2021-05-30] MEDS: METOPROLOL SUCCINATE XL 25 MG TAB.SR.24H PO SCH (09:00)
[2021-05-30] MEDS: ASPIRIN 81 MG TAB.CHEW PO SCH (09:55)
[2021-05-30] MEDS: SERTRALINE HCL 50 MG TABLET PO SCH (09:55)
[2021-05-30] MEDS: LORATADINE 10 MG TABLET PO SCH (09:55)
[2021-05-30] MEDS: AMIODARONE HCL 200 MG TABLET PO SCH (10:06)
[2021-05-30] MEDS: DOCUSATE SODIUM 100 MG CAPSULE PO SCH (10:06)
[2021-05-30] MEDS: REMEDY ESSENTIAL ZINC PASTE 113 GM TOP SCH (10:08)
[2021-05-30 12:00] VITALS: BP 102/29
[2021-05-30] MEDS ORDERED: FURO80TA87 PO (14:46)
--- NOTE | 2021-05-30 15:24 | NUR ---
patient discharged to aru unit, stable condition, no sob, resp even nonlabored, skin warm and dry to touch, tx ongoing for left arm skin tear and right arm skin tear, belongings are accounted and signed, son was at bedside and agreed with plan
== END 2021-05-30 13:55 | DRG 291 ==
LOC: ER 11:29 → TELE3 14:14 → MEDSURG3 05-29 10:17
PROVIDERS: ADMIT Internal Medicine; ATTEND Internal Medicine
PROC: 05H633Z Insertion of Infusion Device into Left Subclavian Vein, Percutaneous Approach (ICD-10-PCS; principal; 2021-05-28)
PROC: B547ZZA Ultrasonography of Left Subclavian Vein, Guidance (ICD-10-PCS; 2021-05-28)
PROC: 0HBRXZZ Excision of Toe Nail, External Approach (ICD-10-PCS; 2021-05-28)
DX: I13.0 Hypertensive heart and chronic kidney disease with heart failure and stage 1 through stage 4 chronic kidney disease, or unspecified chronic kidney disease (principal); I50.23 Acute on chronic systolic (congestive) heart failure; J44.9 Chronic obstructive pulmonary disease, unspecified; I48.0 Paroxysmal atrial fibrillation; E03.9 Hypothyroidism, unspecified; I25.5 Ischemic cardiomyopathy; E78.5 Hyperlipidemia, unspecified; I25.10 Atherosclerotic heart disease of native coronary artery without angina pectoris; I25.2 Old myocardial infarction; Z86.73 Personal history of transient ischemic attack (TIA), and cerebral infarction without residual deficits; E11.22 Type 2 diabetes mellitus with diabetic chronic kidney disease; Z88.0 Allergy status to penicillin; N18.9 Chronic kidney disease, unspecified; I27.20 Pulmonary hypertension, unspecified; L60.3 Nail dystrophy; M79.672 Pain in left foot; M79.671 Pain in right foot; S80.812A Abrasion, left lower leg, initial encounter; X58.XXXA Exposure to other specified factors, initial encounter; Y93.9 Activity, unspecified; Y92.009 Unspecified place in unspecified non-institutional (private) residence as the place of occurrence of the external cause; Z79.890 Hormone replacement therapy; Z85.3 Personal history of malignant neoplasm of breast; R93.1 Abnormal findings on diagnostic imaging of heart and coronary circulation
CPT/HCPCS: 36415; 71045; 83735; 84100; 84484; 85025; 85730; 86140; 93005; 97161; A4663; A6209; A9150; C1758; G0378; J1940; J7040

== ENCOUNTER 2021-05-30 14:25 | Inpatient (IN) | payer MEDICARE, BC ==
[~2021-05-30] VITALS: Ht 152.4 cm; Wt 61.3 kg
[~2021-05-30 14:25] MED LIST changes: -ACET-2605 PO; +ACET-73 PO; +AMIO200T5 PO; -AMIO200T7 PO; -ASPI-1420 PO; +ASPI-866 PO; +BISA-79 PO; -BISA10SU95 RC
[2021-05-30] MEDS ORDERED: FURO80TA87 PO (14:46)
[2021-05-30 16:00] VITALS: BP 159/42
[2021-05-30] MEDS ORDERED: ACETAMINOPHEN ES 500 MG TABLET- SA PATIENTS-PAIN ONLY PO PRN (16:30)
[2021-05-30] MEDS ORDERED: ONDANSETRON HCL 4 MG TABLET PO PRN (16:30)
[2021-05-30] MEDS ORDERED: FUROSEMIDE 40 MG TABLET PO SCH (17:00)
--- NOTE | 2021-05-30 17:35 | NUR ---
patient admitted from [facility] floor, alert, oriented x4, no sob, resp even nonlabored, skin warm and dry to touch, no distress noted, sitting in chair, noted with multiple discoloration to upper and lower extremities, also noted with skin tear to left arm and right arm, wound consult in place, dressing performed to skin tears. performed gentle care. Addendum: 05/30/21 at 1740 by BRITTANY DELACRUZ RN, RN pitting edema to both lower and upper extremities.
[2021-05-30 20:12] VITALS: BP 136/48
[2021-05-30] MEDS ORDERED: Medication Not On Formulary EA (Atorvastatin Calcium (Lipitor) 80 MG) PO SCH (21:00)
[2021-05-30] MEDS: TRAZODONE 50 MG TABLET PO SCH (21:10)
[2021-05-30] MEDS: ATORVASTATIN 40 MG TABLET PO SCH (21:10)
[2021-05-30] MEDS: ACETAMINOPHEN ES 500 MG TABLET PO PRN (21:29)
[2021-05-31 04:12] VITALS: BP 107/55
[2021-05-31] MEDS: PANTOPRAZOLE SODIUM 40 MG TABLET.DR PO SCH (06:01)
[2021-05-31] MEDS: LEVOTHYROXINE SODIUM 50 MCG TABLET PO SCH (06:01)
--- NOTE | 2021-05-31 06:23 | NUR ---
Patient in bed no acute distress noted. On RA.Sleep well throughout the night. Compliant with medication. Midline patent and intact on Left Fa.Edema noted on carrington lower ext.Elevated with pillow.Safety measures in place. Call light with in reach. Will endorse to oncoming shift.
[2021-05-31 07:05] LABS: HEMATOCRIT 29.1 % (31.2-41.9); MEAN CORPUSCULAR HEMOGLOBIN 31.4 uug (24.7-32.8); MEAN CORPUSCULAR VOLUME 93.3 fL (75.5-95.3); PLATELET COUNT (AUTO) 201 K/uL (179-408)
--- NOTE | 2021-05-31 07:13 | NUR ---
Received patient report from PM nurse. Arrived to patient's room resting comfortably in bed with no signs of distress or discomfort. Patient to receive physical therapy throughout the day. IV site intact and patent. Bed left in lowest position with call light within reach. Comfort measures provided.
[2021-05-31 07:14] LABS: CARBON DIOXIDE 33 mmol/L (21-32); CHLORIDE 104 mmol/L (98-107); CREATININE 1.5 mg/dL (0.6-1.3); GLUCOSE 101 mg/dL (74-106); MAGNESIUM 2.1 mg/dL (1.8-2.4); PHOSPHOROUS 3.8 mg/dL (2.5-4.9); POTASSIUM 3.7 mmol/L (3.5-5.1); UREA NITROGEN, BLOOD 28 mg/dL (7-18)
[2021-05-31 08:02] VITALS: BP 114/46
[2021-05-31] MEDS: EZETIMIBE 10 MG TABLET PO SCH (08:46)
[2021-05-31] MEDS: BISACODYL 5 MG TABLET.DR PO PRN (08:46)
[2021-05-31] MEDS: ASPIRIN EC 81 MG TABLET.DR PO SCH (08:46)
[2021-05-31] MEDS: FUROSEMIDE 40 MG TABLET PO SCH ×2 (08:46→16:11)
[2021-05-31] MEDS: SERTRALINE HCL 50 MG TABLET PO SCH (08:46)
[2021-05-31] MEDS: LORATADINE 10 MG TABLET PO SCH (08:47)
[2021-05-31] MEDS: LISINOPRIL 5 MG TABLET PO SCH (08:48)
[2021-05-31] MEDS: METOPROLOL SUCCINATE XL 25 MG TAB.SR.24H PO SCH (08:48)
[2021-05-31] MEDS: DOCUSATE SODIUM 100 MG CAPSULE PO SCH (08:49)
[2021-05-31] MEDS: FARXIGA 10 MG PO SCH (08:49)
[2021-05-31] MEDS: AMIODARONE HCL 200 MG TABLET PO SCH (08:49)
[2021-05-31] MEDS ORDERED: FUROSEMIDE 40 MG TABLET PO SCH (09:00)
[2021-05-31] MEDS ORDERED: LORATADINE 10 MG TABLET PO SCH (09:00)
--- NOTE | 2021-05-31 12:03 | NUR ---
WOUND CARE CONSULT: PT PRESENTS WITH LEFT ARM AND LEFT LOWER LEG SKIN TEARS, PRESENT ON ADMISSION. DR PERRY NOTIFIED OF DPM CONSULT REQUEST. RECOMMENDATIONS MADE FOR SKIN PROTECTION. DISCUSSED WITH NURSING STAFF. MD IN AGREEMENT WITH PLAN OF CARE.
[2021-05-31 16:00] VITALS: BP 120/35
--- NOTE | 2021-05-31 18:53 | NUR ---
Patient received care well throughout shift. Patient had wound consult and both wounds of the left forearm, and left lower leg both require cleansing with NS and placing xeroform with gauze. IV site patent and intact. Bed left in the lowest position with call light within reach. Comfort measures provided.
[2021-05-31] MEDS: TRAZODONE 50 MG TABLET PO SCH (20:46)
[2021-05-31] MEDS: ATORVASTATIN 40 MG TABLET PO SCH (20:47)
[2021-05-31] MEDS: ACETAMINOPHEN ES 500 MG TABLET PO PRN (20:50)
[2021-05-31 20:53] VITALS: BP 131/47
[2021-06-01 04:30] VITALS: BP 117/35
--- NOTE | 2021-06-01 05:05 | NUR ---
Awake alert and olriented x4 No acute distress noted. Admitted for COPD exacerbation. VSS. Needs attended. Fall precautions maintained. VSS Incontinent of bowel and bladder. BM noted this shift. Kept clean and dry. LLE dressing clean dry and intact, dressing changed daily.
[2021-06-01] MEDS: PANTOPRAZOLE SODIUM 40 MG TABLET.DR PO SCH (06:02)
[2021-06-01] MEDS: LEVOTHYROXINE SODIUM 50 MCG TABLET PO SCH (06:03)
[2021-06-01 07:30] VITALS: BP 128/48
--- NOTE | 2021-06-01 08:00 | NUR ---
Received patient laying in bed. A/O x 4. In room air. Denies SOB and Pain. [facility] assessment done, skin tear in the left upper and lower ext. noted. Midline in the DANNY patent and intact. Safety initiated. Call light within reach. Will closely monitor.
[2021-06-01] MEDS: METOPROLOL SUCCINATE XL 25 MG TAB.SR.24H PO SCH (09:25)
[2021-06-01] MEDS: EZETIMIBE 10 MG TABLET PO SCH (09:25)
[2021-06-01] MEDS: MIRALAX 17 GM POWD.PACK PO PRN (09:25)
[2021-06-01] MEDS: SERTRALINE HCL 50 MG TABLET PO SCH (09:25)
[2021-06-01] MEDS: FARXIGA 10 MG PO SCH (09:25)
[2021-06-01] MEDS: BISACODYL 5 MG TABLET.DR PO PRN (09:25)
[2021-06-01] MEDS: DOCUSATE SODIUM 100 MG CAPSULE PO SCH (09:25)
[2021-06-01] MEDS: AMIODARONE HCL 200 MG TABLET PO SCH (09:26)
[2021-06-01] MEDS: FUROSEMIDE 40 MG TABLET PO SCH ×2 (09:26→17:08)
[2021-06-01] MEDS: ASPIRIN EC 81 MG TABLET.DR PO SCH (09:26)
--- NOTE | 2021-06-01 09:36 | NUR ---
PT and PT Aid at bedside to perform AM PT. Will continue to monitor.
[2021-06-01] MEDS: LISINOPRIL 5 MG TABLET PO SCH (10:51)
[2021-06-01 16:37] VITALS: BP 123/43
--- NOTE | 2021-06-01 17:27 | NUR ---
Wound care provided. Pt. afebrile t/o shift. Denies pain or SOB. Good urine output. No new skin issues noted. Participated with PT. Vital signs stable. All meds given as ordered. All needs met.
[2021-06-01 20:00] VITALS: BP 140/52
--- NOTE | 2021-06-01 20:00 | NUR ---
RECEIVED PATIENT AWAKE IN BED. A/O X4. VERY PLEASANT WHEN APPROACGED. DENIES ANY PAIN OR DISCOMFORT. NO RESP. DISTRESS NOTED. ON RA SATING 94%. VS WNL. MID-LINE NOTED TO LEFT UPPER ARM, INTACT AND PATENT. BED ALARM ON. CALL LIGHT IN REACH. ALL NEEDS ATTENDED. WILL CONTINUE TO MONITOR AND ASSESS.
[2021-06-01] MEDS: TRAZODONE 50 MG TABLET PO SCH (20:09)
[2021-06-01] MEDS: ATORVASTATIN 40 MG TABLET PO SCH (20:09)
[2021-06-01] MEDS: ACETAMINOPHEN ES 500 MG TABLET PO PRN (20:49)
[2021-06-02 04:20] VITALS: BP 138/39
[2021-06-02] MEDS: LEVOTHYROXINE SODIUM 50 MCG TABLET PO SCH (06:45)
[2021-06-02] MEDS: PANTOPRAZOLE SODIUM 40 MG TABLET.DR PO SCH (06:46)
--- NOTE | 2021-06-02 06:51 | NUR ---
Patient slept well, no shortness of breath noted, no complaint of pain. Skin redness at groin and buttocks are still noted, on healing. No significant event within the shift.
--- NOTE | 2021-06-02 07:36 | NUR ---
Received resting easily arousable, responsive to verbal and tactile stimuli. No ss of pain or sob. Breathing non labored on room air. Safety measures in place. Kept comfortable. Call light in reach
[2021-06-02 08:00] VITALS: BP 128/38
[2021-06-02] MEDS: DOCUSATE SODIUM 100 MG CAPSULE PO SCH (09:00)
[2021-06-02] MEDS: SERTRALINE HCL 50 MG TABLET PO SCH (09:06)
[2021-06-02] MEDS: METOPROLOL SUCCINATE XL 25 MG TAB.SR.24H PO SCH (09:06)
[2021-06-02] MEDS: AMIODARONE HCL 200 MG TABLET PO SCH (09:06)
[2021-06-02] MEDS: EZETIMIBE 10 MG TABLET PO SCH (09:06)
[2021-06-02] MEDS: FUROSEMIDE 40 MG TABLET PO SCH ×2 (09:07→16:44)
[2021-06-02] MEDS: LORATADINE 10 MG TABLET PO SCH (09:07)
[2021-06-02] MEDS: FARXIGA 10 MG PO SCH (09:07)
[2021-06-02] MEDS: ASPIRIN EC 81 MG TABLET.DR PO SCH (09:07)
[2021-06-02] MEDS: LISINOPRIL 5 MG TABLET PO SCH (09:14)
--- NOTE | 2021-06-02 09:14 | NUR ---
per svetlana de la fuente to give bp meds 124/43 hr 75.
[2021-06-02 12:00] VITALS: BP 116/36
--- NOTE | 2021-06-02 14:16 | NUR ---
INDIVIDUALIZED PLAN OF CARE
[2021-06-02 16:00] VITALS: BP 115/38
--- NOTE | 2021-06-02 16:50 | NUR ---
INDIVIDUALIZED PLAN OF CARE
--- NOTE | 2021-06-02 19:13 | NUR ---
alert and oriented no acute distress. compliant with medications and care. endorsed for continuity of care.
--- NOTE | 2021-06-02 19:45 | NUR ---
Recvd patient in bed. AAOX4. Temperature slightly elevated at 99. Ice packs given. Patient denies SOB, chest pain or dizziness. IV access at DANNY, patent and intact. Safety measures initiated. Call light within reach, bed in locked. Will continue to monitor.
[2021-06-02 20:06] VITALS: BP 120/50
[2021-06-02] MEDS: ATORVASTATIN 40 MG TABLET PO SCH (20:20)
[2021-06-02] MEDS: TRAZODONE 50 MG TABLET PO SCH (20:21)
[2021-06-02] MEDS: ACETAMINOPHEN ES 500 MG TABLET PO PRN (20:26)
[2021-06-03 04:06] VITALS: BP 117/45
[2021-06-03] MEDS: LEVOTHYROXINE SODIUM 50 MCG TABLET PO SCH (06:13)
[2021-06-03] MEDS: PANTOPRAZOLE SODIUM 40 MG TABLET.DR PO SCH (06:13)
--- NOTE | 2021-06-03 06:30 | NUR ---
Patient slept through the night with no complaints. Compliant with medication regimen. Patient denies dizziness, SOB or chest pain at this time. MRSA swab collected and sent to lab. All needs attended to and met. Safety precautions maintained. Will endorse to day shift.
--- NOTE | 2021-06-03 07:42 | NUR ---
Received awake and alert x3, pleasant mood. No ss of pain or sob. States she slept ok. Comfortably watching tv. safety measures in place. Needs attended. COnt to monitor.
[2021-06-03 08:31] VITALS: BP 134/38
[2021-06-03] MEDS: DOCUSATE SODIUM 100 MG CAPSULE PO SCH (08:44)
[2021-06-03] MEDS: EZETIMIBE 10 MG TABLET PO SCH (08:45)
[2021-06-03] MEDS: METOPROLOL SUCCINATE XL 25 MG TAB.SR.24H PO SCH (08:45)
[2021-06-03] MEDS: LISINOPRIL 5 MG TABLET PO SCH (08:46)
[2021-06-03] MEDS: ASPIRIN EC 81 MG TABLET.DR PO SCH (08:46)
[2021-06-03] MEDS: FARXIGA 10 MG PO SCH (08:46)
[2021-06-03] MEDS: SERTRALINE HCL 50 MG TABLET PO SCH (08:46)
[2021-06-03] MEDS: FUROSEMIDE 40 MG TABLET PO SCH ×2 (08:46→16:45)
[2021-06-03] MEDS: AMIODARONE HCL 200 MG TABLET PO SCH (08:46)
--- NOTE | 2021-06-03 08:46 | NUR ---
bp 134/38 hr73, per dr. hina mota to give bp medications.
[2021-06-03 11:52] VITALS: BP 112/38
[2021-06-03] MEDS: ACETAMINOPHEN ES 500 MG TABLET PO PRN ×2 (14:11→21:18)
[2021-06-03 16:27] VITALS: BP 113/58
--- NOTE | 2021-06-03 19:03 | NUR ---
watching tv comfortable. safety measures kept. needs attended.
[2021-06-03 20:06] VITALS: BP 105/49
[2021-06-03] MEDS: TRAZODONE 50 MG TABLET PO SCH (21:13)
[2021-06-03] MEDS: ATORVASTATIN 40 MG TABLET PO SCH (21:14)
[2021-06-04 04:06] VITALS: BP 110/45
[2021-06-04] MEDS: PANTOPRAZOLE SODIUM 40 MG TABLET.DR PO SCH (06:27)
[2021-06-04] MEDS: LEVOTHYROXINE SODIUM 50 MCG TABLET PO SCH (06:27)
[2021-06-04 08:00] VITALS: BP 143/48
[2021-06-04] MEDS: EZETIMIBE 10 MG TABLET PO SCH (08:50)
[2021-06-04] MEDS: ASPIRIN EC 81 MG TABLET.DR PO SCH (08:50)
[2021-06-04] MEDS: LORATADINE 10 MG TABLET PO SCH (08:50)
[2021-06-04] MEDS: SERTRALINE HCL 50 MG TABLET PO SCH (08:50)
[2021-06-04] MEDS: FUROSEMIDE 40 MG TABLET PO SCH ×2 (08:50→17:53)
[2021-06-04] MEDS: DOCUSATE SODIUM 100 MG CAPSULE PO SCH (08:50)
[2021-06-04] MEDS: LISINOPRIL 5 MG TABLET PO SCH (08:52)
[2021-06-04] MEDS: AMIODARONE HCL 200 MG TABLET PO SCH (08:52)
[2021-06-04] MEDS: FARXIGA 10 MG PO SCH (08:52)
[2021-06-04] MEDS: METOPROLOL SUCCINATE XL 25 MG TAB.SR.24H PO SCH (08:52)
[2021-06-04] MEDS: ACETAMINOPHEN ES 500 MG TABLET PO PRN ×2 (15:18→21:09)
[2021-06-04 16:00] VITALS: BP 103/75
[2021-06-04] MEDS ORDERED: REMEDY ESSENTIAL ZINC PASTE 113 GM TOP PRN (18:00)
[2021-06-04] MEDS: TRAZODONE 50 MG TABLET PO SCH (20:35)
[2021-06-04] MEDS: ATORVASTATIN 40 MG TABLET PO SCH (20:35)
[2021-06-04 20:55] VITALS: BP 107/42
[2021-06-05 04:00] VITALS: BP 109/40
[2021-06-05] MEDS: PANTOPRAZOLE SODIUM 40 MG TABLET.DR PO SCH (06:05)
[2021-06-05] MEDS: LEVOTHYROXINE SODIUM 50 MCG TABLET PO SCH (06:05)
[2021-06-05 07:57] VITALS: BP 128/32
[2021-06-05] MEDS: FUROSEMIDE 40 MG TABLET PO SCH ×2 (08:09→17:28)
[2021-06-05] MEDS: SERTRALINE HCL 50 MG TABLET PO SCH (08:09)
[2021-06-05] MEDS: DOCUSATE SODIUM 100 MG CAPSULE PO SCH (08:09)
[2021-06-05] MEDS: AMIODARONE HCL 200 MG TABLET PO SCH (08:09)
[2021-06-05] MEDS: ASPIRIN EC 81 MG TABLET.DR PO SCH (08:09)
[2021-06-05] MEDS: EZETIMIBE 10 MG TABLET PO SCH (08:10)
[2021-06-05] MEDS: MIRALAX 17 GM POWD.PACK PO PRN (08:11)
[2021-06-05] MEDS: FARXIGA 10 MG PO SCH (08:11)
[2021-06-05] MEDS: METOPROLOL SUCCINATE XL 25 MG TAB.SR.24H PO SCH (09:55)
[2021-06-05] MEDS: LISINOPRIL 5 MG TABLET PO SCH (09:55)
--- NOTE | 2021-06-05 11:06 | NUR ---
INTERDISCIPLINARY TEAM CONFERENCE
[2021-06-05 15:57] VITALS: BP 108/34
[2021-06-05 20:12] VITALS: BP 111/38
[2021-06-05] MEDS: ATORVASTATIN 40 MG TABLET PO SCH (20:27)
[2021-06-05] MEDS: TRAZODONE 50 MG TABLET PO SCH (20:27)
[2021-06-05] MEDS: ACETAMINOPHEN ES 500 MG TABLET PO PRN (20:33)
--- NOTE | 2021-06-06 04:54 | NUR ---
Remained in stable condition. AAOx3-4 VSS Needs attended. Small amount of BM noted. Offered dulcolax suppository she maybe later. Encouraged fluids. All due meds given without difficulty. Tylenol given for pain. Will monitor patient. Fall precautions maintained. Siderails up for safety.
[2021-06-06] MEDS: PANTOPRAZOLE SODIUM 40 MG TABLET.DR PO SCH (06:09)
[2021-06-06] MEDS: LEVOTHYROXINE SODIUM 50 MCG TABLET PO SCH (06:09)
[2021-06-06 08:00] VITALS: BP 125/47
[2021-06-06] MEDS: SERTRALINE HCL 50 MG TABLET PO SCH (08:23)
[2021-06-06] MEDS: EZETIMIBE 10 MG TABLET PO SCH (08:23)
[2021-06-06] MEDS: AMIODARONE HCL 200 MG TABLET PO SCH (08:24)
[2021-06-06] MEDS: LISINOPRIL 5 MG TABLET PO SCH (08:31)
[2021-06-06] MEDS: FUROSEMIDE 40 MG TABLET PO SCH ×2 (08:31→16:58)
[2021-06-06] MEDS: BISACODYL 5 MG TABLET.DR PO PRN (08:31)
[2021-06-06] MEDS: ASPIRIN EC 81 MG TABLET.DR PO SCH (08:31)
[2021-06-06] MEDS: DOCUSATE SODIUM 100 MG CAPSULE PO SCH (08:32)
[2021-06-06] MEDS: METOPROLOL SUCCINATE XL 25 MG TAB.SR.24H PO SCH (08:33)
[2021-06-06] MEDS: LORATADINE 10 MG TABLET PO SCH (08:37)
[2021-06-06] MEDS: MIRALAX 17 GM POWD.PACK PO PRN (08:38)
[2021-06-06] MEDS: FARXIGA 10 MG PO SCH (08:39)
[2021-06-06 15:19] VITALS: BP 112/41
--- NOTE | 2021-06-06 19:00 | NUR ---
Received patient on bed, awake, not in labored breathing, alert, no complaint of pain, safety precautions provided, call light placed within reach.
[2021-06-06 20:03] VITALS: BP 116/40
[2021-06-06] MEDS: ATORVASTATIN 40 MG TABLET PO SCH (20:35)
[2021-06-06] MEDS: TRAZODONE 50 MG TABLET PO SCH (20:35)
[2021-06-06] MEDS: ACETAMINOPHEN ES 500 MG TABLET PO PRN (20:40)
[2021-06-07 04:03] VITALS: BP 106/46
--- NOTE | 2021-06-07 05:38 | NUR ---
Slept well within the shift, no complaint of pain. Compliant with the medications.
[2021-06-07] MEDS: PANTOPRAZOLE SODIUM 40 MG TABLET.DR PO SCH (06:22)
[2021-06-07] MEDS: LEVOTHYROXINE SODIUM 50 MCG TABLET PO SCH (06:22)
[2021-06-07 07:59] VITALS: BP 133/46
[2021-06-07] MEDS: ASPIRIN EC 81 MG TABLET.DR PO SCH (08:43)
[2021-06-07] MEDS: DOCUSATE SODIUM 100 MG CAPSULE PO SCH (08:43)
[2021-06-07] MEDS: AMIODARONE HCL 200 MG TABLET PO SCH (08:43)
[2021-06-07] MEDS: FARXIGA 10 MG PO SCH (08:44)
[2021-06-07] MEDS: LISINOPRIL 5 MG TABLET PO SCH (08:44)
[2021-06-07] MEDS: FUROSEMIDE 40 MG TABLET PO SCH ×2 (08:44→17:07)
[2021-06-07] MEDS: EZETIMIBE 10 MG TABLET PO SCH (08:45)
[2021-06-07] MEDS: METOPROLOL SUCCINATE XL 25 MG TAB.SR.24H PO SCH (08:45)
[2021-06-07] MEDS: SERTRALINE HCL 50 MG TABLET PO SCH (08:53)
[2021-06-07] MEDS: ACETAMINOPHEN ES 500 MG TABLET PO PRN ×2 (14:37→22:54)
--- NOTE | 2021-06-07 15:31 | NUR ---
Pt remain AAO x 4, quite ,calm, Respiration even and unlabored at room air Sat 96% Skin intact, redness on sacral area,bilateral arms skin tears, kept clean and dry. continent of bowel BM X1 and bladder with diaper on. Fall precautions in place.Up in W/C with PT. Medicated with Tylenol 500 mg 2 tabs as ordered for pain ,no acute distress noted. Side-rails up safety bed in low position . No acute distress noted. Will monitor patient for comfort and safety spoke to Herb son he will bring some home Meds Farxiva tomorrow
[2021-06-07 16:45] VITALS: BP 101/48
[2021-06-07 20:02] VITALS: BP 93/75
[2021-06-07] MEDS: TRAZODONE 50 MG TABLET PO SCH (20:51)
[2021-06-07] MEDS: ATORVASTATIN 40 MG TABLET PO SCH (20:52)
[2021-06-08 04:43] VITALS: BP 118/52
--- NOTE | 2021-06-08 05:50 | NUR ---
Patient alert oriented, no sob no chest pain, no coughing noted, requires total assist with adl's, kept clean and dry, turn and reposition, cont to monitor.
[2021-06-08] MEDS: LEVOTHYROXINE SODIUM 50 MCG TABLET PO SCH (06:02)
[2021-06-08] MEDS: PANTOPRAZOLE SODIUM 40 MG TABLET.DR PO SCH (06:02)
[2021-06-08 08:00] VITALS: BP 115/37
[2021-06-08] MEDS: AMIODARONE HCL 200 MG TABLET PO SCH (08:17)
[2021-06-08] MEDS: METOPROLOL SUCCINATE XL 25 MG TAB.SR.24H PO SCH (08:17)
[2021-06-08] MEDS: DOCUSATE SODIUM 100 MG CAPSULE PO SCH (08:17)
[2021-06-08] MEDS: EZETIMIBE 10 MG TABLET PO SCH (08:17)
[2021-06-08] MEDS: FUROSEMIDE 40 MG TABLET PO SCH ×2 (08:18→16:07)
[2021-06-08] MEDS: LORATADINE 10 MG TABLET PO SCH (08:18)
[2021-06-08] MEDS: ASPIRIN EC 81 MG TABLET.DR PO SCH (08:18)
[2021-06-08] MEDS: BISACODYL 5 MG TABLET.DR PO PRN (08:18)
[2021-06-08] MEDS: LISINOPRIL 5 MG TABLET PO SCH (08:18)
[2021-06-08] MEDS: SERTRALINE HCL 50 MG TABLET PO SCH (08:18)
[2021-06-08] MEDS: MIRALAX 17 GM POWD.PACK PO PRN (08:19)
[2021-06-08] MEDS: FARXIGA 10 MG PO SCH (08:19)
[2021-06-08 16:04] VITALS: BP 103/56
--- NOTE | 2021-06-08 19:28 | NUR ---
Received patient awake, alert, oriented x4. Able to make needs known. No acute distress noted at this time. Safety precautions initiated. Bed in locked position, call light within reach. Will continue to monitor.
[2021-06-08 20:09] VITALS: BP 116/57
[2021-06-08] MEDS: ATORVASTATIN 40 MG TABLET PO SCH (20:44)
[2021-06-08] MEDS: TRAZODONE 50 MG TABLET PO SCH (20:44)
[2021-06-08] MEDS: ACETAMINOPHEN ES 500 MG TABLET PO PRN (20:44)
[2021-06-09 04:53] VITALS: BP 143/44
[2021-06-09] MEDS: PANTOPRAZOLE SODIUM 40 MG TABLET.DR PO SCH (06:08)
[2021-06-09] MEDS: LEVOTHYROXINE SODIUM 50 MCG TABLET PO SCH (06:09)
--- NOTE | 2021-06-09 06:35 | NUR ---
Patient slept through the night with no complaints. Patient shows no signs of SOB. Compliant with medication regimen. IV access patent and intact. Safety precautions maintained. Will endorse to day shift.
[2021-06-09 08:00] VITALS: BP 138/46
[2021-06-09] MEDS: FARXIGA 10 MG PO SCH (08:14)
[2021-06-09] MEDS: FUROSEMIDE 40 MG TABLET PO SCH ×2 (08:14→16:16)
[2021-06-09] MEDS: METOPROLOL SUCCINATE XL 25 MG TAB.SR.24H PO SCH (08:14)
[2021-06-09] MEDS: EZETIMIBE 10 MG TABLET PO SCH (08:14)
[2021-06-09] MEDS: AMIODARONE HCL 200 MG TABLET PO SCH (08:14)
[2021-06-09] MEDS: BISACODYL 5 MG TABLET.DR PO PRN (08:14)
[2021-06-09] MEDS: LISINOPRIL 5 MG TABLET PO SCH (08:14)
[2021-06-09] MEDS: DOCUSATE SODIUM 100 MG CAPSULE PO SCH (08:14)
[2021-06-09] MEDS: SERTRALINE HCL 50 MG TABLET PO SCH (08:22)
[2021-06-09] MEDS: ASPIRIN EC 81 MG TABLET.DR PO SCH (08:22)
[2021-06-09 16:38] VITALS: BP 113/29
[2021-06-09] MEDS: ATORVASTATIN 40 MG TABLET PO SCH (20:27)
[2021-06-09] MEDS: TRAZODONE 50 MG TABLET PO SCH (20:27)
[2021-06-09 20:29] VITALS: BP 137/40
[2021-06-09] MEDS: ACETAMINOPHEN ES 500 MG TABLET PO PRN (20:29)
[2021-06-10 04:13] VITALS: BP 113/37
[2021-06-10 05:56] VITALS: BP 135/50
[2021-06-10] MEDS: PANTOPRAZOLE SODIUM 40 MG TABLET.DR PO SCH (06:15)
[2021-06-10] MEDS: LEVOTHYROXINE SODIUM 50 MCG TABLET PO SCH (06:15)
--- NOTE | 2021-06-10 06:24 | NUR ---
Patient remained stable in condition. Compliant with medication .Midline patent and intact on left upper arm.No resistance noted.Incontinent to both B & B . Pericare rendered.All needs anticipated and met accordingly.
[2021-06-10 07:48] VITALS: BP 140/36
[2021-06-10] MEDS: ASPIRIN EC 81 MG TABLET.DR PO SCH (08:20)
[2021-06-10] MEDS: EZETIMIBE 10 MG TABLET PO SCH (08:20)
[2021-06-10] MEDS: SERTRALINE HCL 50 MG TABLET PO SCH (08:20)
[2021-06-10] MEDS: LISINOPRIL 5 MG TABLET PO SCH (08:20)
[2021-06-10] MEDS: METOPROLOL SUCCINATE XL 25 MG TAB.SR.24H PO SCH (08:20)
[2021-06-10] MEDS: AMIODARONE HCL 200 MG TABLET PO SCH (08:20)
[2021-06-10] MEDS: FUROSEMIDE 40 MG TABLET PO SCH ×2 (08:20→16:02)
[2021-06-10] MEDS: FARXIGA 10 MG PO SCH (08:20)
[2021-06-10] MEDS: LORATADINE 10 MG TABLET PO SCH (08:25)
[2021-06-10 16:09] VITALS: BP 131/49
--- NOTE | 2021-06-10 19:15 | NUR ---
Received patient on bed, awake, alert and oriented x3-4, no shortness of breath noted. No complaint of pain. Safety precautions provided. Call light placed within reach.
[2021-06-10 20:35] VITALS: BP 118/45
[2021-06-10] MEDS: TRAZODONE 50 MG TABLET PO SCH (20:58)
[2021-06-10] MEDS: ATORVASTATIN 40 MG TABLET PO SCH (20:59)
[2021-06-10] MEDS: ACETAMINOPHEN ES 500 MG TABLET PO PRN (21:01)
[2021-06-11 04:06] VITALS: BP 123/40
[2021-06-11] MEDS: PANTOPRAZOLE SODIUM 40 MG TABLET.DR PO SCH (06:08)
[2021-06-11] MEDS: LEVOTHYROXINE SODIUM 50 MCG TABLET PO SCH (06:08)
--- NOTE | 2021-06-11 06:09 | NUR ---
Patient slept well, no complaint within the shift, no signs of pain noted. Left upper arm midline removed. Patient in fair condition.
[2021-06-11 06:25] LABS: HEMATOCRIT 29.2 % (31.2-41.9); MEAN CORPUSCULAR HEMOGLOBIN 30.7 uug (24.7-32.8); MEAN CORPUSCULAR VOLUME 92.6 fL (75.5-95.3); PLATELET COUNT (AUTO) 245 K/uL (179-408)
[2021-06-11 06:35] LABS: CARBON DIOXIDE 30 mmol/L (21-32); CHLORIDE 105 mmol/L (98-107); CREATININE 1.7 mg/dL (0.6-1.3); GLUCOSE 102 mg/dL (74-106); MAGNESIUM 2.1 mg/dL (1.8-2.4); POTASSIUM 3.9 mmol/L (3.5-5.1); UREA NITROGEN, BLOOD 33 mg/dL (7-18)
[2021-06-11 08:00] VITALS: BP 134/36
[2021-06-11 08:14] VITALS: BP 123/50
[2021-06-11] MEDS: LISINOPRIL 5 MG TABLET PO SCH (08:14)
[2021-06-11] MEDS: FARXIGA 10 MG PO SCH (08:14)
[2021-06-11] MEDS: FUROSEMIDE 40 MG TABLET PO SCH (08:14)
[2021-06-11] MEDS: ASPIRIN EC 81 MG TABLET.DR PO SCH (08:14)
[2021-06-11] MEDS: SERTRALINE HCL 50 MG TABLET PO SCH (08:14)
[2021-06-11] MEDS: AMIODARONE HCL 200 MG TABLET PO SCH (08:14)
[2021-06-11] MEDS: METOPROLOL SUCCINATE XL 25 MG TAB.SR.24H PO SCH (08:14)
[2021-06-11] MEDS: EZETIMIBE 10 MG TABLET PO SCH (08:15)
[2021-06-11] MEDS ORDERED: DIPHENOXYLATE HCL/ATROP SULF TABLET PO PRN (14:15)
--- NOTE | 2021-06-11 15:22 | NUR ---
dc orders received noted and carried out.dc instruction and education given to the pt and her son.pt left the facility via private car in stable condition
== END 2021-06-11 15:25 | disposition home health service (06) | DRG 291 ==
PROVIDERS: ADMIT Physical Medicine & Rehabilitation Pain Medicine; ATTEND Physical Medicine & Rehabilitation Pain Medicine
DX: I13.0 Hypertensive heart and chronic kidney disease with heart failure and stage 1 through stage 4 chronic kidney disease, or unspecified chronic kidney disease (principal); I50.23 Acute on chronic systolic (congestive) heart failure; I69.351 Hemiplegia and hemiparesis following cerebral infarction affecting right dominant side; I51.3 Intracardiac thrombosis, not elsewhere classified; R53.1 Weakness; I25.10 Atherosclerotic heart disease of native coronary artery without angina pectoris; I25.5 Ischemic cardiomyopathy; I27.20 Pulmonary hypertension, unspecified; I48.0 Paroxysmal atrial fibrillation; N18.9 Chronic kidney disease, unspecified; J44.9 Chronic obstructive pulmonary disease, unspecified; S81.812D Laceration without foreign body, left lower leg, subsequent encounter; X58.XXXD Exposure to other specified factors, subsequent encounter; L60.3 Nail dystrophy; Z88.0 Allergy status to penicillin
CPT/HCPCS: 36415; 83735; 84100; 85025; 97161; 97535-GO-CO; A6209; A9150